=== PATIENT | male | born 1940 | race Caucasian/White ===

== ENCOUNTER 2016-07-24 15:45 | Inpatient (IN) | payer MEDICARE ==
[~2016-07-24] VITALS: Ht 170.2 cm; Wt 73.2 kg
[~2016-07-24 15:45] MED LIST: ALBU2.5V4 IH; ALBU5SOL10 IH; ASP81TEC PO; ATOR20TA49 PO; ATOR80TA PO; BUDE0.253 IH; CARV12.53 PO; CETI10TA17 PO; CETI10TA57 PO; CODE118S2 PO; DOCU-143 PO; DULO60CA58 PO; ENOX80DI12 SQ; ENXP80I.8 SC; FERR-57 PO; FRSM40T PO; FURO-124 PO; FURO20TA4 PO; FURO40TA4 PO; FURO80TA3 PO; HYDR-3812 PO; IPRA3AMP11 INH; LOSA100T7 PO; LOSA25TA5 PO; LOSA50TA6 PO; MAGN400T29 PO; METO25TA PO; MNTL10T PO; OMEP20CA12 PO; ONDA4TAB8 PO; OXYC-202 PO; PNT40TEC PO; POTA-51 PO; POTA10CA43 PO; POTA20TA8 PO; PROM5SYR PO; PROM6.25 PO; PYRI100T2 PO; RAMI1.25 PO; SOTA80TA PO; SPIR25TA3 PO; Sucralfate PO; WARF2TAB6 PO; WARF3TAB6 PO; WARF3TAB7 PO; WARF5TAB6 PO; WRF2.5T PO; WRF3T PO
[2016-07-24 20:00] VITALS: BP 110/68
--- OUTSIDE RECORDS SUMMARY | 2016-07-24 20:13 | XMS REPORT | Continuity of Care Document ---
Author Author [facility] Organization [facility] Address Unknown Phone Unavailable Care Team Providers Care Windows Architect Name Role Phone No Pcp, Na PCP Unavailable Source Comments Some departments are not documenting in the electronic medical record. If you do not see the information that you expected, contact Release of Information in the Health Information Management department at [phone] for further assistance in locating additional records.[facility] Active Allergies and Adverse Reactions No Known Allergies Current Medications Prescription Sig. Disp. Refills Start End Date Status Date warfarin (COUMADIN) 3 mg Take 3 mg by mouth daily. Active tablet atorvastatin (LIPITOR) 80 Take 80 mg by mouth Active mg tablet daily. aspirin 81 mg chewable Take 81 mg by mouth Active tablet daily. sotalol (BETAPACE) 80 mg Take 80 mg by mouth twice Active tablet daily. DULoxetine DR (CYMBALTA) Take 60 mg by mouth daily Active 60 mg capsule as needed. magnesium oxide (MAG-OX) Take 400 mg by mouth Active 400 mg tablet daily. potassium chloride SR Take 10 mEq by mouth Active (K-DUR) 10 mEq tablet daily. omeprazole DR(+) Take 20 mg by mouth Active (PRILOSEC) 20 mg capsule daily. pyridoxine (vitamin B6) Take 100 mg by mouth Active 100 mg tablet daily. furosemide (LASIX) 40 mg Take 40 mg by mouth Active tablet daily. Active Problems Problem Noted Date Aortic stenosis CAD (coronary artery disease) Social History Tobacco Use Types Packs/Day Years Used Date Former Smoker Cigarettes Alcohol Use Drinks/Week oz/Week Comments Yes Plan of Care Health Maintenance Due Date Last Done Comments Physical (Comprehensive) 1947 Exam Pertussis Vaccine 1951 Tetanus Vaccine 1957 Colorectal Cancer 1990 Screening Shingles Vaccine 2000 Prevnar/Pneumovax (#1) 2005 Influenza Vaccine 03/21/2016 Results from Last 3 Months Not on file
[2016-07-24] MEDS ORDERED: ATORVASTATIN 20 MG (LIPITOR) TABLET ONE (21:21)
[2016-07-24] MEDS ORDERED: SOTALOL 80 MG (BETAPACE) TAB ONE (21:21)
[2016-07-24] MEDS: SOTALOL 80 MG (BETAPACE) TAB PO SCH (21:34)
[2016-07-24] MEDS: CARVEDILOL 12.5 MG (COREG) TABLET PO SCH (21:35)
[2016-07-24] MEDS: ATORVASTATIN 40 MG (LIPITOR) TABLET PO SCH (21:39)
[2016-07-25 06:00] VITALS: BP 133/74
[2016-07-25 06:22] LABS: BASOPHILS % (AUTO) 1 % (0-10); EOSINOPHILS # (AUTO) 0.2 10^3/uL (0.0-0.3); EOSINOPHILS % (AUTO) 3 % (0-10); LYMPHOCYTES # (AUTO) 1.5 X 10^3 (1.0-4.0); LYMPHOCYTES % (AUTO) 27 % (12-44); MEAN CORPUSCULAR HEMOGLOBIN 27 PG (25-34); MEAN CORPUSCULAR HGB CONC 33 G/DL (32-36); MEAN CORPUSCULAR VOLUME 81 FL (80-99); MEAN PLATELET VOLUME 10.1 FL (7.4-10.4); MONOCYTES # (AUTO) 0.7 X 10^3 (0.0-1.0); MONOCYTES % (AUTO) 12 % (0-12); NEUTROPHILS # (AUTO) 3.2 X 10^3 (1.8-7.8); NEUTROPHILS % (AUTO) 57 % (42-75); PLATELET COUNT 320 10^3/uL (130-400); RED BLOOD COUNT 3.94 10^6/uL (4.35-5.85); RED CELL DISTRIBUTION WIDTH 15.2 % (10.0-14.5); WHITE BLOOD COUNT 5.5 10^3/uL (4.3-11.0)
[2016-07-25 06:36] LABS: INR 2.9 (0.8-1.4)
[2016-07-25 06:48] LABS: ALANINE AMINOTRANSFERASE 13 U/L (0-55); ALBUMIN 3.4 G/DL (3.2-4.5); ANION GAP 10 MMOL/L (5-14); ASPARTATE AMINO TRANSFERASE 13 U/L (5-34); BILIRUBIN,TOTAL 0.3 MG/DL (0.1-1.0); BLOOD UREA NITROGEN 4 MG/DL (7-18); BUN/CREATININE RATIO 6; CALCIUM 9.2 MG/DL (8.5-10.1); CARBON DIOXIDE 22 MMOL/L (21-32); CHLORIDE 96 MMOL/L (98-107); CREATININE SERUM 0.67 MG/DL (0.60-1.30); GFR ESTIMATED > 60; GLUCOSE 108 MG/DL (70-105); POTASSIUM 4.6 MMOL/L (3.6-5.0); SODIUM 128 MMOL/L (135-145); TOTAL PROTEIN 6.3 G/DL (6.4-8.2)
[2016-07-25] MEDS: FUROSEMIDE 40 MG (LASIX) TAB PO SCH ×2 (06:52→17:27)
[2016-07-25] MEDS: KCL 20 MEQ TAB (K-DUR) PO SCH (06:52)
[2016-07-25] MEDS: HYDROcodone/APAP 5 MG/325 MG (LORTAB) TAB PO PRN ×4 (06:55→22:01)
[2016-07-25] MEDS: CARVEDILOL 12.5 MG (COREG) TABLET PO SCH ×2 (08:11→20:41)
[2016-07-25] MEDS: SOTALOL 80 MG (BETAPACE) TAB PO SCH ×2 (08:11→20:41)
[2016-07-25] MEDS ORDERED: SODIUM CITRATE PO PRN (08:29)
--- NOTE | 2016-07-25 08:43 | Consultation ---
History of Present Illness History of Present Illness Patient Consulted On(rosanne/time) 07/25/16 08:39 Date of Admission History of Present Illness patient states she's feeling rough and sore all over. Patient fell backwards off the first step off his porch. Patient hit his head and received a subdural hematoma. Patient states he uses a walker to get around now. Surgery mitral valve and bypass Allergies and Home Medications Allergies Coded Allergies: No Known Drug Allergies (Unverified , 07/06/16) Home Medications Atorvastatin Calcium 20 Mg Tablet #30 20 MG PO HS Prescribed by: CHALO VALLEJO on 07/12/16 0837 Carvedilol 12.5 Mg Tablet 12.5 MG PO BID (Reported) LAST FILLED #60 04-10-16 Furosemide 80 Mg Tablet 40 MG PO BID (Reported) LAST FILLED #30 04-27-16 TAKES 1/2 (80MG) TABLET Hydrocodone/Acetaminophen 1 Each Tablet #30 1 TAB PO Q4H PRN PRN MODERATE PAIN Prescribed by: CHALO VALLEJO on 07/12/16 0823 Potassium Chloride 20 Meq Tab.er.prt 20 MEQ PO HS (Reported) LAST FILLED 04-27-16 #30 Promethazine HCl/Codeine 5 Ml Syrup 10 ML PO TID PRN PRN COUGH (Reported) Sotalol Hcl 80 Mg Tablet 80 MG PO BID (Reported) LAST FILLED #60 04-10-16 Warfarin Sodium 3 Mg Tablet 3 MG PO HS (Reported) LAST FILLED #30 04-27-16 Past Dfoxwjd-Qcbuni-Hpuski Hx Patient Social History Alcohol Use: Regular Use Recreational Drug Use: No Smoking Status: Former Smoker Type Used: Cigars Former Smoker/When Quit: Jul 21, 2005 Recent Foreign Travel: No Contact w/Someone Who Travel: No Recent Infectious Disease Expo: No Recent Hopitalizations: Yes (DC from [place] on 07/24/16) Physical Abuse Screen: No Sexual Abuse: No Immunizations Up To Date Tetanus Booster (TDap): Less than 5yrs PED Vaccines UTD: Yes Date of Pneumonia Vaccine: Mar 12, 2013 Date of Influenza Vaccine: May 06, 2016 Seasonal Allergies Seasonal Allergies: No Surgeries HX Surgeries: Yes (AAA REPAIR,MITRAL VALVE REPLACEMENT,CABG 2 VESSEL;PACER/ DEFIBRILLATOR) Surgeries: Abdominal, Cardiac, CABG, Defibrillator, Pacemaker, Vascular Surgery Respiratory Hx Respiratory Disorders: Yes Respiratory Disorders: Pneumonia, COPD, Emphysema Cardiovascular Hx Cardiac Disorders: Yes (CABG,PACER/DEFIB,AAA REPAIR, MITRAL VALVE REPLACEMENT,2 VESSEL CABG) Cardiac Disorders: Aneurysm, Cardiomyopathy, Coronary Artery Disease, Heart Attack, High Cholesterol, Hypertension, Hypotension, Syncope, Valvular Heart Disease Neurological Hx Neurological Disorders: Yes Reproductive System Hx Reproductive Disorders: No Sexually Transmitted Disease: No HIV/AIDS: No Genitourinary Hx Genitourinary Disorders: No (episode of dehydration that caused renal failure) Genitourinary Disorders: Renal Failure Gastrointestinal Hx Gastrointestinal Disorders: Yes Gastrointestinal Disorders: Gastroesophageal Reflux, Esophagitis, Ulcer Musculoskeletal Hx Musculoskeletal Disorders: Yes (HX. FALL BROKEN RIBS, L1 acute compression fx) Endocrine Hx Endocrine Disorders: No (DIET CONTROLLED ) Endocrine Disorders: Diabetes, Non-Insulin dep HEENT HX ENT Disorders: Yes HEENT Disorders: Cataract Hearing Impairment: Hard of Hearing, Bilateral Hearing Aide Cancer Hx Cancer: No Psychosocial Hx Psychiatric Problems: Yes Behavioral Health Disorders: Sleep Difficulties Integumentary HX Skin/Integumentary Disorder: No Blood Transfusions Hx Blood Disorders: No Adverse Reaction to a Blood Tr: No Family Medical History Family Medial History: Arthritis 19 FATHER 19 MOTHER Cataracts 19 FATHER 19 MOTHER Congenital heart disease 19 MOTHER Deafness or hearing loss 19 FATHER Dementia 19 FATHER Diabetes mellitus 19 FATHER Hypertension 19 MOTHER Osteoporosis 19 MOTHER Respiratory disorder 19 MOTHER Review of Systems-General Constitutional: weakness EENTM: no symptoms reported Respiratory: no symptoms reported Cardiovascular: vascular heart diseas Gastrointestinal: no symptoms reported Genitourinary: no symptoms reported Physical Exam-General Problems Physical Exam Vital Signs Vital Sign - Last 12Hours 07/24/16 20:00 Temp 97.8 Pulse 69 Resp 18 B/P 110/68 Pulse Ox 97 O2 Delivery Room Air Capillary Refill : General Appearance: WD/WN no apparent distress Eyes: Bilateral Eye Normal Inspection HEENT: normal ENT inspection Neck: full range of motion Respiratory: chest non-tender lungs clear normal breath sounds no respiratory distress no accessory muscle use Cardiovascular: regular rate, rhythm Gastrointestinal: soft Assessment/Plan Assessment/Plan Admission Diagnosis/Plan subdural hematoma. Hyponatremia. Mitral valve replacement. Coronary artery disease. Sore all over Clinical Quality Measures DVT/VTE Risk/Contraindication: Risk Factor Score Per Nursin RFS Level Per Nursing on Admit: 2=Moderate MARCELLA TAMEZ DO Jul 25, 2016 08:43
--- NOTE | 2016-07-25 09:50 | HISTORY AND PHYSICAL ---
DATE OF ADMISSION: 07/24/2016 CHIEF COMPLAINT: Difficulty with walking. HISTORY OF PRESENT ILLNESS: The patient is a 75-year-old male with a history ischemic cardiomyopathy with left ventricular ejection fraction of 25%. Myocardial perfusion imaging on 12/08/2012 and echo of February 2014 showed a left ventricular ejection fraction of approximately 45%, as well as pulmonary hypertension. He is followed by Dr. Yeung for chronic systolic congestive heart failure and chronic anticoagulated. Status post cardiac valve replacement. He has a history of falls with most recent admission to [facility]. The patient was seen by neurosurgery. His Coumadin was held. Imaging studies revealed bilateral frontal subdural ischemic illness. The patient required to be on Coumadin because of his mechanical valve which has been resumed. The patient is now referred to inpatient rehabilitation unit. He had been living alone in [place], [place]. His sister from [place] presents with him. PCP is Dr. Leonardo. The patient has a history of multiple falls and back pain due to a compression fracture. He had kyphoplasty this past May with DR GARC[facility] . He still has complaints of back pain and utilizes Lortab p.r.n. He currently requires assistance for his ADLs and mobility skills and was referred to Inpatient Rehabilitation Unit. PAST MEDICAL HISTORY: 1. Cardiac history as per above. 2. Tobacco use, ceased in January 2006. 3. Hyperlipidemia. 4. Chronic bronchitis. 5. AICD, due to ischemic cardiomyopathy, being managed by Dr. Zarate. 6. He had a device replacement, Dr. Zarate 08/1013. 7. GERD. 8. Chronic kidney disease. He has seen Dr. Luna during prior admission to [facility]. His L1 fracture had kyphoplasty of 06/04/2016 PAST SURGICAL HISTORY: Cardiac procedures as per above. ALLERGIES: No known medication allergies. FAMILY HISTORY: Arthritis, cataracts, congenital heart disease, hearing loss, dementia, diabetes mellitus, hypertension, osteoporosis. SOCIAL HISTORY: He has 2 children in [place], [place]. He is retired. He has a supportive sister that lives in [place]. PCP Dr. Leonardo. He is legally . REVIEW OF SYSTEMS: 10 point review of systems significant for gait imbalance, history of falls, back pain. MEDICATIONS: 1. Coumadin 3 mg p.o. daily. 2. K-Dur 20 mEq p.o. daily. 3. Furosemide 40 mg p.o. b.i.d. 4. Betapace 80 mg p.o. b.i.d. 5. Lipitor 20 mg p.o. at bedtime. 6. Coreg 12.5 mg p.o. b.i.d. 7. Lortab 5, 1 tablet p.o. q.4 hours p.r.n. moderate pain. PHYSICAL EXAMINATION: Significant for a pleasant male, appearing his stated age, alert and oriented no acute distress. He does not appear to know all of his history but it is fairly complex the last few months with multiple falls and stay at [facility]. Admissions to this facility and then admission to [facility] in [place], [place]. VITAL SIGNS: Within normal limits. He is afebrile. HEENT: Vision, speech, hearing, grossly intact. No oral lesion is noted. NECK: Supple without mass. HEART: Regular rhythm, click from valve is appreciated. CHEST: Clear. ABDOMEN: Soft, nontender. Bowel sounds present. EXTREMITIES: No lower edema. No calf tenderness. MUSCULOSKELETAL: He has a functional strength throughout. He has impaired standing balance. NEUROLOGIC: Sensation is grossly intact to touch. He has appeared standing balance. He had some mild difficulty with memory at least as far as his recent medical history. He has a functional strength throughout; this is unfortunately, impaired by his impaired balance. IMPRESSION: 1. Ambulatory dysfunction secondary to bilateral frontal subdural hematoma, status post repeated falls with Coumadin on board, has been held, now resumed. 2. Chronic anticoagulation due to valve replacement. His INR follow with PCP Dr. Leonardo. 3. Status post mitral valve replacement with number [address] prosthesis January 2006. 4. Chronic hyponatremia. 5. History of tobaccoism. 6. Hyperlipidemia, on statin. 7. AICD due to ischemic cardiomyopathy, being managed by Dr. Zarate. 8. GERD. 9. CKD. 10. Paroxysmal atrial fibrillation. 11. History of abdominal aortic aneurysm, status post stent grafting. Dr. Egan June 2011. 12. Chronic systolic congestive heart failure. 13. Chronic back pain, status post compression fracture. PLAN: The patient is admitted to Inpatient Rehabilitation Unit for comprehensive program of inpatient rehabilitation with goal of maximizing level of functional dependence prior to discharge home with home health care. The patient will have PT/OT 90 minutes per day, each discipline, 5 days week, when not being seen by speech therapy, for gait strengthening, conditioning, balance, ADLs, any patient/family/caregiver training necessary, any adaptive equipment and training necessary. Speech therapy to see the patient 3 to 5 days a week, 30 to 45 minutes per day for cognition and speech issues. Swallow screen is necessary, and I don't believe he has an issue with this. Rehabilitation nursing assist with bowel, bladder, skin care, medication administration, pain management. technical services specialist to assist with discharge planning, community reentry. Check INR and adjust Coumadin accordingly. Check admission labs in a.m. follow with Dr. Leonardo, PCP. The patient may benefit from an alternative to discharge home alone in [place], [place] considering his multiple comorbidities, his age and his history of recurrent falls and chronic anticoagulation. ESTIMATED LENGTH OF STAY: Two weeks. PROGNOSIS: Rehab prognosis appears good for goal of discharging home with home health and family, hopefully, modified independent to supervision for ADLs and mobility skills. DIET: Regular. CODE STATUS: Full code. POST ADMISSION PHYSICIAN ASSESSMENT: The preadmission screen agrees with the post admission assessment that the patient is a good candidate for inpatient rehabilitation. He appears to be well motivated to participate in 3 hours of therapy a day. He should be able tolerate 3 hours of therapy a day from a medical and neurosurgical standpoint. He should benefit from the 3 hours of therapy a day. He has a reasonable discharge plan, reasonable discharge rehabilitation goals and a supportive family. He has various comorbidities that need to be closely monitored with medications and treatments adjusted on daily basis. These include his cardiac condition as outlined above, his ischemic cardiomyopathy, his chronic anticoagulation. Barriers to discharge for this patient who had been until recently this past May independent at home, are for him to be modified independent to supervision for ADLs and mobility skills prior to discharge home with family and home health care . Risks for this patient include: 1. Recurrent fall. 2. Recurrent bleed. 3. Poorly controlled INR. 4. Recurrent congestive heart failure. 5. DVT. 6. Pulmonary embolism. 7. Falls. 8. Fracture. 9. Urinary retention. 10. UTI. 11. Respiratory infection. 12. Aspiration. The patient will have Coumadin for DVT prophylaxis as well. Job ID: [id number] Dictated Date: 07/24/2016 21:12:25 Keel Press Operator Date: 07/25/2016 09:24:03/luke COOK
--- NOTE | 2016-07-25 10:00 | Physical Therapy Evaluation ---
PT Evaluation-General Medical Diagnosis Admission Date Jul 24, 2016 at 20:09 Medical Diagnosis: subdural hematoma Onset Date: Jul 24, 2016 Therapy Diagnosis Therapy Diagnosis: impaired mobility, endurance, balance Height/Weight Height (Feet): 5 Height (Inches): 7.00 Weight (Pounds): 166 Weight (Ounces): 9.0 Precautions Precautions/Isolations: Fall Prevention, Standard Precautions Referral Physician: Julian Reason for Referral: Evaluation/Treatment Medical History Pertinent Medical History: CABG, CAD, COPD, DM, HTN, OR, Renal Insufficiency, Smoking Additional Medical History PAST MEDICAL HISTORY: 1. Cardiac history 2. Tobacco use, ceased in January 2006. 3. Hyperlipidemia. 4. Chronic bronchitis. 5. AICD, due to ischemic cardiomyopathy, being managed by Dr. Zarate. 6. He had a device replacement, Dr. Zarate 08/1013. 7. GERD. 8. Chronic kidney disease. He has seen Dr. Luna during prior admission to [facility]. His L1 fracture had kyphoplasty of 06/04/2016 Current History Patient fell backward going into his back door. Reviewed History: Yes Social History Home: Single Level Current Living Status: Alone Entry Into Home: Stairs With Railing PT Steps Into Home: 3 Prior/Core FIM Prior Level of Function Functional [place] Measure 0=Not Assessed/NA 4=Minimal Assistance 1=Total Assistance 5=Supervision or Setup 2=Maximal Assistance 6=Modified [place] 3=Moderate Assistance 7=Complete [place] Bed Mobility: 6 Transfers (B,C,W/C) (FIM): 6 Gait: 6 PT Daily Note-Current Subjective Patient in bed pre tx, agrees to therapy after some encouragement. Wanted to postpone therapy because he was drinking coffee, and that was it. Pain Numeric Pain Scale: 3 Location Body Site: Back Comment: ribs Appearance Patient in bed post tx with nurse call, phone, tray, all needs met. Mental Status Patient Orientation: Person, Place, Situation Transfers Functional [place] Measure 0=Not Assessed/NA 4=Minimal Assistance 1=Total Assistance 5=Supervision or Setup 2=Maximal Assistance 6=Modified [place] 3=Moderate Assistance 7=Complete IndependenceIRFPAI Quality Coding Scale 6 Independent with activity with or without an assistive device 5 Patient requires set up or clean up by helper. Patient completes activity by themselves 4 Supervision or touching assist (CGA). [place] provide cues , steadying assist 3 The helper provides less than half the effort to complete the activity 2 The helper provides more than half the effort to complete the activity 1 Dependent. The helper does all the effort to complete an activity 7 Patient refused to complete or attempt activity 9 The patient did not perform the activity before the current illness or injury 88 Not attempted due to Medical conditions or safety concerns Transfers (B, C, W/C) (FIM): 5 Scootin Rollin Roll Left to Right (QC): 4 Supine to/from Sit: 5 Sit to/from Stand: 5 Bed to/from Chair: 5 Sit to Lying (QC): 4 Lying-Sitting/Side of Bed(QC): 4 Sit to Stand (QC): 4 Chair/Cre-zk-Xbyrf Xfer(QC): 4 Car Transfer (QC): 88 Patient uses hand appropriately, however sometimes he needs cues for safety because he will leave walker to step to the bed or chair Gait Training Does the Patient Walk?: Yes Gait (FIM): 5 Distance: 250', 100' Walk 10 feet (QC): 4 Walk 50 ft with 2 Turns(QC): 4 Walk 150 ft (QC): 4 Walk 10ft-uneven surface(QC): 4 Gait Level of Assist: 5 Gait Persons Needed: 1 Gait Assistive Device: FWW Patient takes slow, small steps, but not a festinating gait. Patient is able to ambulate 10' without difficulty even on an uneven surface like carpet, he can ambulate 50' with at least 2 turns of 90 degrees and 150' with a rolling walker with SBA. Wheelchair Training Does the Pt Use a Wheelchair?: No Stair Training Stair Training: Handrails/: 2 handrails Stairs (FIM): 2 #of Steps: 4 1 Step (curb) (QC): 4 4 Steps (QC): 4 12 Steps (QC): 88 Stairs: Pattern: Step to Level of Assist: 4 (CGA) cues for step placement, patient tends to want to step reciprocally Balance Balance Sitting Static: Normal Balance Sitting Dynamic: Normal Balance-Standing Static: Good Balance Standing Dynamic: Good Picking up an Object (QC): 88 Neuromuscular Patient has intact light touch sensation in lower extremities bilaterally and has 4+/5 gross strength in LE bilaterally Treatments evaluation, stair training, gait training, bed mobility and transfer training Assessment Patient has impaired mobility, balance and endurance post subdural hematoma PT Short Term Goals Short Term Goals Time Frame: Aug 01, 2016 Transfers (B,C,W/C) (FIM): 6 Gait (FIM): 6 Gait Distance Comment: 600' Gait Assistive Device: FWW PT Fci Goals Commercial Loan Processor Goals PT Fci Goals Time Frame: Aug 15, 2016 Transfers (B,C,W/C) (FIM): 6 Sit to Lying (QC): 6 Lying-Sitting on Side/Bed(QC): 6 Sit to Stand (QC): 6 Rollin Roll Left to Right (QC): 6 Chair/Nrl-yt-Ichik Xfer(QC): 6 Car Transfer (QC): 4 Does the Patient Walk: Yes Gait (FIM): 6 Distance: 800' Walk 10 feet (QC): 6 Walk 10ft-Uneven Surface(QC): 6 Walk 50ft with 2 Turns (QC): 6 Walk 150 ft (QC): 6 Gait Assistive Device: Cane Single Point # of Steps: 5 1 Step (curb) (QC): 4 4 Steps (QC): 4 12 Steps (QC): 4 Stairs Level Of Assist: 5 PT Plan Problem List Problem List: Activity Tolerance, Functional Strength, Safety, Balance, Gait, Transfer, Bed Mobility Treatment/Plan Treatment Plan: Continue Plan of Care Treatment Plan: Bed Mobility, Education, Functional Activity Mckay, Functional Strength, Group Therapy, Gait, Safety, Therapeutic Exercise, Transfers Treatment Duration: Aug 15, 2016 # of days/week 5-6 Visits Per Week: 10-11 Minutes/Day (M-F): 60-90 Minutes/Day (Sat/Thakur): 15-30 Pt/Family Agrees w/Plan: Yes Safety Risks/Education Patient Education: Gait Training, Transfer Techniques, Steps, Safety Issues Teaching Recipient: Patient Teaching Methods: Demonstration, Discussion Response to Teaching: Reinforcement Needed Discharge Recommendations Plan Patient will perform bed mobility and transfer training, balance and endurance training, functional strengthening, stair training, gait training, education, to improve functional mobility and independence at home. Therapy D/C Recommendations: Home w/ Family Support Time/GCodes Time In: 900 Time Out: 1000 Total Billed Treatment Time: 60 Total Billed Treatment 1 visit EVL 15 min GT 30 min FA 15 min DAVE VAUGHN PT Jul 25, 2016 10:00
--- NOTE | 2016-07-25 10:17 | ST Cognitive Linguistic Eval ---
Speech Evaluation-General Medical Diagnosis subdural hematoma Onset Date: Jul 24, 2016 Therapy Diagnosis Therapy Diagnosis: Questionable Cognitive Impairment Precautions Precautions/Isolations: Fall Prevention, Standard Precautions Referral Referring Physician: Dr. Baldev Jordan Reason for Referral: Evaluation/Treatment Cognitive Screen Medical History Pertinent Medical History: CABG, CAD, COPD, DM, HTN, [place], Renal Insufficiency, Smoking Reviewed History: Yes Social History Current Living Status: Alone Speech PLF-Current Status Prior Level of Function The patient denied cognitive, speech, or language deficits prior to admission. Subjective The patient was recently admitted to [facility]. The patient greeted the clinician appropriately and agreed to participate in the cognitive screen on this date. Language Eval: Auditory Comprehends Simple Yes/No Ques: Functional Indent/Objects Multiple [place]: Functional Ident/Pics in Multiple [place]: Functional Follows 1-Step Commands: Functional Follows General Conversations: Functional Language Eval: Verbal Language Completes Spontaneous Greeting: Functional Produces Auto, Serial Info: Functional Imitates Simple Words/Phrases: Functional Word Finding: Functional Requests Basic Needs: Functional States Basic Personal Info: Functional Expresses Complex Ideas: Functional Cognitive Patient Orientation The patient was oriented to month, date, year, and location. Objective Cognitive Domain Attention: WNL Memory: Mild (The patient recalled two of three single words, independently.) Problem Solving: Functional Objective Impression The patient demonstrated cognitive linguistic skills grossly within normal limits for completion of ADL's. Communication/Social Cognition Comprehension: 5 Expression: 5 Social Interaction: 5 Problem Solvin Memory: 5 Speech Patient Assess Expression of Ideas/Wants: Expression (4) Understanding [place] Content: Sometimes Understands(2) Brief Interview-Mental Status: Yes Temporal Orientation: Year: Correct (3) Temporal Orientation: Month: Accurate within 5 days(2) Temporal Orientation: Day: Incorrect or No Answer(0) Recall : Wear: No, could not recall (0) Recall : Color: Yes, no cue required (2) Recall : Bed: Yes, no cue required (2) Speech-Plan Treatment Plan Speech Therapy Treatment Plan: Discontinue ST (Eval, only.) Rehab Potential: Fair Safety Risks/Education Teaching Recipient: Patient Teaching Methods: Discussion Response to Teaching: Verbalize Understanding Education Topics Provided: Plan of Care Time Speech Therapy Time In: 08:15 Speech Therapy Time Out: 08:30 Total Billed Time: 15 Billed Treatment Time DONNELL Rose [facility] ST Jul 25, 2016 10:17
--- NOTE | 2016-07-25 14:09 | PM & R (SOAP) Progress Note ---
Subjective Subjective/Events-last exam Patient was seen in his room this AM Patient min assist for transfers and ambulation.Appreciate therapy and Dr rose notes Appreciate current labs. Review of Systems General: Fatigue (memory loss) Neurological: : Other (impaired balance): Weakness Objective Exam Last Set of Vital Signs Vital Signs Date Time Temp Pulse Resp B/P Pulse Ox O2 Delivery O2 Flow Rate FiO2 07/25/16 09:00 Room Air 07/25/16 06:00 98.1 70 18 133/74 98 Capillary Refill : I&O Bad tableGeneral: Alert, Cooperative, No Acute Distress HEENT: Atraumatic, PERRLA, EOMI, Mucous Memb Moist/[place] Neck: Supple, No JVD Lungs: Clear to Auscultation Heart: Regular Rate Abdomen: Normal Bowel Sounds, Soft, No Tenderness Extremities: No Edema Neuro: Other (impaired balance and some memory impairment) Results Lab Laboratory Tests 07/25/16 06:09: Alanine Aminotransferase (ALT/SGPT) 13, Albumin 3.4, Alkaline Phosphatase 95, Anion Gap 10, Aspartate Amino Transf (AST/SGOT) 13, BUN/Creatinine Ratio 6, Basophils # (Auto) 0.0, Basophils (%) (Auto) 1, Blood Urea Nitrogen 4L, Calcium Level 9.2, Carbon Dioxide Level 22, Chloride Level 96L, Creatinine 0.67, Eosinophils # (Auto) 0.2, Eosinophils (%) (Auto) 3, Estimat Glomerular Filtration Rate > 60, Glucose Level 108H, Hematocrit 32L, Hemoglobin 10.5L, INR Comment 2.9H, Lymphocytes # (Auto) 1.5, Lymphocytes (%) (Auto) 27, Mean Corpuscular Hemoglobin 27, Mean Corpuscular Hemoglobin Concent 33, Mean Corpuscular Volume 81, Mean Platelet Volume 10.1, Monocytes # (Auto) 0.7, Monocytes (%) (Auto) 12, Neutrophils # (Auto) 3.2, Neutrophils (%) (Auto) 57, Platelet Count 320, Potassium Level 4.6, Prothrombin Time 30.0H, Red Blood Count 3.94L, Red Cell Distribution Width 15.2H, Sodium Level 128L, Total Bilirubin 0.3, Total Protein 6.3L, White Blood Count 5.5 Assessment/Plan Assessment Fall with SDH treted medically Chronic hyponatremia Anemia Cardiomyopathy s/p ICD Hx of rercurrent falls Plan Continue PT/OT/ST Team Conference next week Follow INR for chronic anticoagulation F/U with KEVEN Esposito MD Jul 25, 2016 14:09
--- NOTE | 2016-07-25 15:02 | Occupational Therapy Eval ---
OT Evaluation-General/PLF Medical Diagnosis Admission Date Jul 24, 2016 at 20:09 Medical Diagnosis: subdural hematoma Onset Date: Jul 24, 2016 Therapy Diagnosis Therapy Diagnosis: Weakness, Decreased ADL skills Height/Weight Height (Feet): 5 Height (Inches): 7.00 Weight (Pounds): 166 Weight (Ounces): 9.0 Precautions Precautions/Isolations: Fall Prevention, Standard Precautions Safety Interventions: Bed Exit Alarm, Reorient-PRN Weight Bear Status Weight Bearing Restriction: Weight Bearing/Tolerated Referral Physician: Julian Referral Reason: Activity Tolerance, Evaluation/Treatment, Strengthening/ROM Medical History Pertinent Medical History: CABG, CAD, COPD, DM, HTN, NC, Renal Insufficiency, Smoking Additional Medical History Mechanical heart valve, 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 was in hospital for intractable back pain. Discharged and while trying to walk into home, fell backward hitting head. Reviewed History: Yes Social History Home: Single Level Current Living Status: Alone Entry Into Home: Stairs With Railing Steps Into Home: 3 ADL-Prior Level of Function ADL PLOF Comments Pt. states prior to his last hospitalization, he was independent with daily tasks. States that he drives, and is able to shop for himself, bathe, and dress. Pt. states that he had back injection approximately 2 months ago for pain. However, he states, "it didn't help." DME/Equipment: Bath Chair, Tub/Shower DME/Equipment Comments Pt. has walker and wheelchair. Does not have a BSC. Drive Self: Yes OT Current Status Subjective Pt. does not report a pain level. States, that he is "sore all over," but does not state a pain level. Appearance Pt. is in bed. Agrees to treatment. Declines showering but agrees to spongebathe. Pt. requires increased time and cues to participate. Mental Status/Objective Patient Orientation: Person Memory: 4 (Pt. requires cues to remember tasks at times and constant verbal cues.) Current Glasses/Contacts: Yes Hearing Aids: Yes Dentures/Partials: Yes Hand Dominance: Right Upper Extremity ROM WFL Upper Extremity Coordination intact Upper Extremity Strength 3/5 bilateral UE. ADL-Treatment Functional [place] Measure 0=Not Assessed/NA 4=Minimal Assistance 1=Total Assistance 5=Supervision or Setup 2=Maximal Assistance 6=Modified [place] 3=Moderate Assistance 7=Complete IndependenceIRFPAI Quality Coding Scale 6 Independent with activity with or without an assistive device 5 Patient requires set up or clean up by helper. Patient completes activity by themselves 4 Supervision or touching assist (CGA). [place] provide cues , steadying assist 3 The helper provides less than half the effort to complete the activity 2 The helper provides more than half the effort to complete the activity 1 Dependent. The helper does all the effort to complete an activity 7 Patient refused to complete or attempt activity 9 The patient did not perform the activity before the current illness or injury 88 Not attempted due to Medical conditions or safety concerns Eating (FIM): 6 (Pt. eating parfait with no difficulty. Had no difficulty getting lid off.) Eating (QC): 6 Bathing (FIM): 5 (Pt. requires supervision and set up. Also requires increased time to complete tasks. Pt. will become distracted and requires cues to continue with what he is working on.) Shower/Bathe Self (QC): 4 Upper Body Dressing (FIM): 5 (Set up and increased time.) Upper Body Dressing (QC): 5 Lower Body Dressing (FIM): 5 (supervision and increased time needed.) Lower Body Dressing (QC): 4 On/Off Footwear (QC): 4 Transfers (B, C, W/C) (FIM): 5 (supervision) Other Treatments Pt. agrees to spongebathe. Requires frequent cues to continue with tasks. Pt. also requires increased time, as he will begin talking about something, and then requires re-direction. After ADLS on side of bed, pt. is able to transfer back to supine. All needs met. Education OT Patient Education: Modified ADL techniques, Progress toward Goal/Update tx plan, Purpose of tx/functional activities, Reviewed precautions, Rehab process, Transfer techniques Teaching Recipient: Patient Teaching Methods: Demonstration, Discussion Response to Teaching: Verbalize Understanding, Return Demonstration OT Short Term Goals Short Term Goals Time Frame: Aug 01, 2016 Eating(FIM): 5 Grooming(FIM): 5 Bathing(FIM): 5 Upper Body Dressing(FIM): 5 Lower Body Dressing(FIM): 5 Toileting(FIM): 5 Transfers (B,C,W/C) (FIM): 6 Toilet/Commode Transfer(FIM): 5 Additional Short Term Goals: 1-Demonstrate ADL Tasks, 2-Verbalize Understanding , 3-ImproveStrength/Mckay 1=Demonstrate adherence to instructed precautions during ADL tasks. 2=Patient will verbalize/demonstrate understanding of assistive devices/ modifications for ADL. 3=Patient will improve strength/tolerance for activity to enable patient to perform ADL's. OT Canopy Inspector Goals Canopy Inspector Goals Time Frame: Aug 08, 2016 Eating (FIM): 6 Eating (QC): 6 Oral Hygiene (QC): 5 Grooming(FIM): 6 Bathing(FIM): 5 Shower/Bathe Self (QC): 5 Upper Body Dressing(FIM): 6 Upper Body Dressing (QC): 6 Lower Body Dressing(FIM): 6 Lower Body Dressing (QC): 5 On/Off Footwear (QC): 5 Toileting(FIM): 6 Toileting Hygiene (QC): 6 Transfers (B,C,W/C) (FIM): 6 Toilet/Commode Transfer(FIM): 6 Toilet/Commode Transfer (QC): 6 Shower Transfer(FIM): 5 Additional Goals: 1-Demonstrate ADL Tasks, 2-Verbalize Understanding, 3- ImproveStrength/Mckay 1=Demonstrate adherence to instructed precautions during ADL tasks. 2=Patient will verbalize/demonstrate understanding of assistive devices/ modifications for ADL. 3=Patient will improve strength/tolerance for activity to enable patient to perform ADL's. OT Education/Plan Problem List/Assessment Assessment: Decreased Activ Tolerance, Decreased UE Strength, Dependent Transfers, Impaired Bed Mobility, Impaired Cognition, Impaired Funct Balance, Impaired I ADL's, Impaired Self-Care Skills Discharge Recommendations Plan/Recommendations: Continue POC Therapy D/C Recommendations: Assisted Living Barriers to Progress Motivation, pain Target Placement Pt. would benefit from being in an assisted living facility for socialization and supervision when needed. Treatment Plan/Plan of Care Treatment,Training & Education: Yes Patient would benefit from OT for education, treatment and training to promote independence in ADL's, mobility, safety and/or upper extremity function for ADL' s. Plan of Care: ADL Retraining, Cognitive Retraining, Functional Mobility, UE Funct Exercise/Act Treatment Duration: Aug 08, 2016 # of days/week 5-6 Visits Per Week: 10-12 Agreement: Yes Rehab Potential: Fair Time/GCodes Start Time: 11:00 Stop Time: 12:00 Total Time Billed (hr/min): 60 Billed Treatment Time 1, EVLow x 15minutes, ADL x 45minutes ALISIA AVILA OT Jul 25, 2016 15:02
--- NOTE | 2016-07-25 15:06 | Individualized Plan of Care ---
Individualized Plan of Care Rehab Nursing IPOC Order Admission Date Jul 24, 2016 at 20:09 Current Orders Orders-KEVEN MIRELES MD Admission-Acute Rehab Unit (07/24/16 20:37) Vital Signs: Routine 08,16,00 (07/24/16 20:37) Social Service (07/24/16 20:37) Rehab Nursing Orders-Ipoc (07/24/16 20:37) Physical Therapy Rehab Orders (07/24/16 20:37) Occupational Therapy Rehab Ord (07/24/16 20:37) Speech Therapy Rehab Orders (07/24/16 20:37) General/Regular (07/25/16 Breakfast) Precautions (Aru) (07/24/16 20:37) Weekly Weight (Lbs) WEEK (07/24/16 20:37) Cbc With Automated Diff (07/25/16 06:00) Comprehensive Metabolic Panel (07/25/16 06:00) Protime With Inr (07/25/16 06:00) Consult Physician (07/24/16 20:44) Sotalol Tablet (Betapace Tablet) (07/24/16 21:00) Warfarin Tablet (Coumadin Tablet) (07/25/16 18:00) Atorvastatin Tablet (Lipitor) (07/24/16 21:00) Potassium Chloride (Tablet) (K Dur Table (07/25/16 07:00) Furosemide Tablet (Lasix Tablet) (07/25/16 07:00) Carvedilol Tablet (Coreg Tablet) (07/24/16 21:00) Hydrocodone/Apap 5/325 Tablet (Lortab 5 (07/24/16 20:45) Pharmacy Communication (Pharmacy Communi (07/24/16 21:00) Atorvastatin Tablet (Lipitor Tablet) (07/24/16 21:21) Sotalol Tablet (Betapace Tablet) (07/24/16 21:21) Patient's Own Med(Rx Use Only) (Patient' (07/25/16 08:29) Patient Visit (07/25/16 ) Speech Sound Lang Comp (07/25/16 ) PT IPOC Problem List: Activity Tolerance, Functional Strength, Safety, Balance, Gait, Transfer, Bed Mobility Treatment Plan: Continue Plan of Care Bed Mobility, Education, Functional Activity Mckay, Functional Strength, Group Therapy, Gait, Safety, Therapeutic Exercise, Transfers Treatment Duration: Aug 15, 2016 Visits Per Week: 10-11 Minutes/Day (M-F): 60-90 Minutes/Day (Sat/Thakur): 15-30 OT IPOC Problems: Decreased Activ Tolerance, Decreased Safety Aware, Decreased UE Strength, Impaired Bed Mobility, Impaired Cognition, Impaired Coordination, Impaired Funct Balance, Impaired I ADL's, Impaired Self-Care Skills Plan of Care: ADL Retraining, Caregiver Training, Cognitive Retraining, Functional Mobility, Group Exercise/Act as Ind, UE Funct Exercise/Act Treatment Duration: Aug 15, 2016 Visits Per Week: 10-11 Minutes/Day (M-F): 60-90 Minutes/Day (Sat/Thakur): 15-30 ST IPOC Speech Therapy Treatment Plan: Discontinue ST (Eval, only.) Physician IPOC Medical Issues being managed closely and that require the 24 hour availability of a physician:Chronic anticoagulation,due to mitral valve replacement 2005.Chronic hyponatremia,ischemic cardiomyopathy and PAF with hx of chronic systolic CHF Chronic back pain s/p Kyphoplasty last year Dr Strickland Interventional Radiology Medical Issues: DVT Prophylaxis, Falls Precautions, Fluid/Electrolyte/ Nutrition Balance, Infection Protection, Pain Management, Other (List) (as per above) Brief Synthesis of Preadmission Screen, Post-Admission Evaluation, and Therapy Evaluations: 75 yo male who lives alone who has had chronic falls and now with blateral Frontal SDHS treated medically by Neurosurgery at OSH Coumadin held and now resumed.On Coumadin Chronically due to MVR 2005 also has cardiomyopathy with low EF s/p ICD DR Rachel OS,Has a supportive sister who lives in [place].PCP DR Leonardo Patient has chronic problems with gait instability.SW to look into alternatives to discharge home alone. Medical Prognosis: good Anticipated Length of Stay: 3 weeks Rehab Goals Modified Independent for adls and mobility skills with improved Balance with decresed risk for falls and therapeutic INR Anticipated discharge destinat: Home with [facility] vs KEVEN MARTE MD Jul 25, 2016 15:05
--- NOTE | 2016-07-25 15:28 | Physical Therapy Daily Note ---
PT Daily Note-Current Subjective Agreeable to PT Mental Status Patient Orientation: Person, Place, Time, Situation Transfers Functional [place] Measure 0=Not Assessed/NA 4=Minimal Assistance 1=Total Assistance 5=Supervision or Setup 2=Maximal Assistance 6=Modified [place] 3=Moderate Assistance 7=Complete IndependenceIRFPAI Quality Coding Scale 6 Independent with activity with or without an assistive device 5 Patient requires set up or clean up by helper. Patient completes activity by themselves 4 Supervision or touching assist (CGA). [place] provide cues , steadying assist 3 The helper provides less than half the effort to complete the activity 2 The helper provides more than half the effort to complete the activity 1 Dependent. The helper does all the effort to complete an activity 7 Patient refused to complete or attempt activity 9 The patient did not perform the activity before the current illness or injury 88 Not attempted due to Medical conditions or safety concerns Transfers (B, C, W/C) (FIM): 5 Supine to/from Sit: 5 Sit to/from Stand: 5 (skilled cues for hand placement and sequencing. ) Gait Training Does the Patient Walk?: Yes Gait (FIM): 5 Distance (FIM): 3=150 ft Distance: 150 ft x 3 Gait Assistive Device: FWW Steady gait, slow susan. No LOB Wheelchair Training Does the Pt Use a Wheelchair?: No Exercises Seated Therapy Exercises: Ankle pumps, Sit to stand, Long arc quads, Hip flexion, Hip abd/add Seated Reps: 15 Treatments Toileted and stood at sink to wash hands all with SBA. Assessment Current Status: Good Progress Safe gait this visit. PT Short Term Goals Short Term Goals Time Frame: Aug 01, 2016 Transfers (B,C,W/C) (FIM): 6 Gait (FIM): 6 Gait Distance Comment: 600' Gait Assistive Device: FWW PT Group Home Goals Controls Operator Molded Goods Goals PT Controls Operator Molded Goods Goals Time Frame: Aug 15, 2016 Transfers (B,C,W/C) (FIM): 6 Sit to Lying (QC): 6 Lying-Sitting on Side/Bed(QC): 6 Sit to Stand (QC): 6 Rollin Roll Left to Right (QC): 6 Chair/Nbe-dc-Uvquu Xfer(QC): 6 Car Transfer (QC): 4 Does the Patient Walk: Yes Gait (FIM): 6 Distance: 800' Walk 10 feet (QC): 6 Walk 10ft-Uneven Surface(QC): 6 Walk 50ft with 2 Turns (QC): 6 Walk 150 ft (QC): 6 Gait Assistive Device: Cane Single Point # of Steps: 5 1 Step (curb) (QC): 4 4 Steps (QC): 4 12 Steps (QC): 4 Stairs Level Of Assist: 5 PT Plan Problem List Problem List: Activity Tolerance, Functional Strength, Safety, Gait, Transfer Treatment/Plan Treatment Plan: Continue Plan of Care Treatment Plan: Bed Mobility, Education, Functional Activity Mckay, Functional Strength, Group Therapy, Gait, Safety, Therapeutic Exercise, Transfers Treatment Duration: Aug 15, 2016 Visits Per Week: 10-11 Minutes/Day (M-F): 60-90 Minutes/Day (Sat/Thakur): 15-30 Safety Risks/Education Patient Education: Safety Issues Teaching Recipient: Patient Teaching Methods: Discussion Response to Teaching: Reinforcement Needed Time/GCodes Time In: 1300 Time Out: 1333 Total Billed Treatment Time: 33 Total Billed Treatment visit EX 19 GT 14 YUNIOR SETH PT Jul 25, 2016 15:28
--- NOTE | 2016-07-25 15:49 | Occupational Ther Daily Note ---
OT Current Status-Daily Note Subjective Pt. reports no pain. Agrees to treatment. Appearance Pt. is in bed finishing parfait. Requires increased time to prepare for therapy. Mental Status/Objective Patient Orientation: Person Functional [place] Measure 0=Not Assessed/NA 4=Minimal Assistance 1=Total Assistance 5=Supervision or Setup 2=Maximal Assistance 6=Modified [place] 3=Moderate Assistance 7=Complete [place] ADL-Treatment Functional [place] Measure 0=Not Assessed/NA 4=Minimal Assistance 1=Total Assistance 5=Supervision or Setup 2=Maximal Assistance 6=Modified [place] 3=Moderate Assistance 7=Complete IndependenceIRFPAI Quality Coding Scale 6 Independent with activity with or without an assistive device 5 Patient requires set up or clean up by helper. Patient completes activity by themselves 4 Supervision or touching assist (CGA). [place] provide cues , steadying assist 3 The helper provides less than half the effort to complete the activity 2 The helper provides more than half the effort to complete the activity 1 Dependent. The helper does all the effort to complete an activity 7 Patient refused to complete or attempt activity 9 The patient did not perform the activity before the current illness or injury 88 Not attempted due to Medical conditions or safety concerns Other Treatment Pt. agrees to treatment. Ambulated to therapy gym and completed series of fine motor exercises to increase overall UE strength. Tolerated nut/bolt activity as well as therapy clothespin activity to increase overall strength. Pt. then ambulated back to room. All needs met in room. Education OT Patient Education: Modified ADL techniques, Progress toward Goal/Update tx plan, Purpose of tx/functional activities, Reviewed precautions, Rehab process, Transfer techniques Teaching Recipient: Patient Teaching Methods: Demonstration, Discussion Response to Teaching: Verbalize Understanding, Return Demonstration OT Short Term Goals Short Term Goals Time Frame: Aug 01, 2016 Eating(FIM): 5 Grooming(FIM): 5 Bathing(FIM): 5 Upper Body Dressing(FIM): 5 Lower Body Dressing(FIM): 5 Toileting(FIM): 5 Transfers (B,C,W/C) (FIM): 6 Toilet/Commode Transfer(FIM): 5 Additional Short Term Goals: 1-Demonstrate ADL Tasks, 2-Verbalize Understanding , 3-ImproveStrength/Mckay 1=Demonstrate adherence to instructed precautions during ADL tasks. 2=Patient will verbalize/demonstrate understanding of assistive devices/ modifications for ADL. 3=Patient will improve strength/tolerance for activity to enable patient to perform ADL's. OT Art Coordinator Goals Art Coordinator Goals Time Frame: Aug 08, 2016 Eating (FIM): 6 Eating (QC): 6 Oral Hygiene (QC): 5 Grooming(FIM): 6 Bathing(FIM): 5 Shower/Bathe Self (QC): 5 Upper Body Dressing(FIM): 6 Upper Body Dressing (QC): 6 Lower Body Dressing(FIM): 6 Lower Body Dressing (QC): 5 On/Off Footwear (QC): 5 Toileting(FIM): 6 Toileting Hygiene (QC): 6 Transfers (B,C,W/C) (FIM): 6 Toilet/Commode Transfer(FIM): 6 Toilet/Commode Transfer (QC): 6 Shower Transfer(FIM): 5 Additional Goals: 1-Demonstrate ADL Tasks, 2-Verbalize Understanding, 3- ImproveStrength/Mckay 1=Demonstrate adherence to instructed precautions during ADL tasks. 2=Patient will verbalize/demonstrate understanding of assistive devices/ modifications for ADL. 3=Patient will improve strength/tolerance for activity to enable patient to perform ADL's. OT Education/Plan Problem List/Assessment Assessment: Decreased Activ Tolerance, Decreased UE Strength, Impaired I ADL's , Impaired Self-Care Skills Discharge Recommendations Plan/Recommendations: Continue POC Therapy D/C Recommendations: Assisted Living Treatment Plan/Plan of Care Treatment,Training & Education: Yes Patient would benefit from OT for education, treatment and training to promote independence in ADL's, mobility, safety and/or upper extremity function for ADL' s. Plan of Care: ADL Retraining, Cognitive Retraining, Functional Mobility, UE Funct Exercise/Act Treatment Duration: Aug 08, 2016 Visits Per Week: 10-12 Agreement: Yes Rehab Potential: Fair Time/GCodes Start Time: 14:00 Stop Time: 14:30 Total Time Billed (hr/min): 30 Billed Treatment Time 1, FA x 2 ALISIA AVILA OT Jul 25, 2016 15:49
[2016-07-25] MEDS: warFARin 3 MG (COUMADIN) TAB PO SCH (17:27)
[2016-07-25 18:28] VITALS: BP 124/78
[2016-07-25] MEDS: ATORVASTATIN 40 MG (LIPITOR) TABLET PO SCH (20:41)
[2016-07-26] MEDS: HYDROcodone/APAP 5 MG/325 MG (LORTAB) TAB PO PRN ×5 (02:21→22:55)
[2016-07-26 05:21] LABS: INR 3.2 (0.8-1.4); PROTHROMBIN TIME PATIENT 32.9 SEC (12.2-14.7)
[2016-07-26 05:26] LABS: ANION GAP 13 MMOL/L (5-14); BLOOD UREA NITROGEN 7 MG/DL (7-18); BUN/CREATININE RATIO 9; CALCIUM 9.3 MG/DL (8.5-10.1); CARBON DIOXIDE 22 MMOL/L (21-32); CHLORIDE 92 MMOL/L (98-107); CREATININE SERUM 0.79 MG/DL (0.60-1.30); GFR ESTIMATED > 60; GLUCOSE 98 MG/DL (70-105); POTASSIUM 4.4 MMOL/L (3.6-5.0); SODIUM 127 MMOL/L (135-145)
[2016-07-26 05:50] VITALS: BP 119/81
[2016-07-26] MEDS: KCL 20 MEQ TAB (K-DUR) PO SCH (06:27)
[2016-07-26] MEDS: FUROSEMIDE 40 MG (LASIX) TAB PO SCH ×2 (06:27→17:33)
--- NOTE | 2016-07-26 08:17 | Progress Note (SOAP) ---
Subjective Subjective/Events-last exam hyponatremia is sodium 127 today. Subdural hematoma. INR 3.2. Patient feeling a little better today. Patient getting around with walker. Started restriction of fluid yesterday Objective Exam Vital Signs Date Time Temp Pulse Resp B/P Pulse Ox O2 Delivery O2 Flow Rate FiO2 07/26/16 05:50 96.5 70 20 119/81 97 Room Air 07/25/16 18:28 97.1 69 16 124/78 98 07/25/16 09:00 Room Air I & O 07/26/16 07:00 Intake Total 1280 ml Output Total 400 ml Balance 880 ml Capillary Refill : General Appearance: No Apparent Distress WD/WN HEENT: Normal ENT Inspection Neck: Normal Inspection Non Tender Respiratory: Lungs Clear Normal Breath Sounds No Accessory Muscle Use No Respiratory Distress Cardiovascular: Regular Rate, Rhythm Gastrointestinal: soft Results Lab Laboratory Tests 07/26/16 04:48 Laboratory Tests 07/26/16 04:48: Anion Gap 13, BUN/Creatinine Ratio 9, Blood Urea Nitrogen 7, Calcium Level 9.3, Carbon Dioxide Level 22, Chloride Level 92L, Creatinine 0.79, Estimat Glomerular Filtration Rate > 60, Glucose Level 98, INR Comment 3.2H, Potassium Level 4.4, Prothrombin Time 32.9H, Sodium Level 127L Assessment/Plan Assessment/Plan Assess & Plan/Chief Complaint subdural hematoma. Hyponatremia. Mitral valve replacement. Coronary artery disease. Sore all over. . 07/26/16. Subdural hematoma. Hyponatremia sodium 127 today. To start fluid restriction yesterday. Patient feeling okay. Patient getting around with walker Diagnosis/Problems: Clinical Quality Measures DVT/VTE Risk/Contraindication: Risk Factor Score Per Nursin RFS Level Per Nursing on Admit: 2=Moderate MARCELLA TAMEZ DO Jul 26, 2016 08:17
--- NOTE | 2016-07-26 09:43 | PM & R (SOAP) Progress Note ---
Subjective Subjective/Events-last exam Patient was seen in his room this AM Appreciate DR rose note and orders Apopreciate todays labs.Patient SBA for mobility Objective Exam Last Set of Vital Signs Vital Signs Date Time Temp Pulse Resp B/P Pulse Ox O2 Delivery O2 Flow Rate FiO2 07/26/16 09:29 Room Air 07/26/16 05:50 96.5 70 20 119/81 97 Capillary Refill : I&O Bad tableGeneral: Alert, Cooperative, No Acute Distress HEENT: Atraumatic, PERRLA, EOMI, Mucous Memb Moist/[place] Neck: Supple, No JVD Lungs: Clear to Auscultation Heart: Regular Rate Abdomen: Normal Bowel Sounds, Soft, No Tenderness Extremities: No Edema Neuro: Other (impaired balance and some memory impairment) Results Lab Laboratory Tests 07/25/16 06:09: Alanine Aminotransferase (ALT/SGPT) 13, Albumin 3.4, Alkaline Phosphatase 95, Anion Gap 10, Aspartate Amino Transf (AST/SGOT) 13, BUN/Creatinine Ratio 6, Basophils # (Auto) 0.0, Basophils (%) (Auto) 1, Blood Urea Nitrogen 4L, Calcium Level 9.2, Carbon Dioxide Level 22, Chloride Level 96L, Creatinine 0.67, Eosinophils # (Auto) 0.2, Eosinophils (%) (Auto) 3, Estimat Glomerular Filtration Rate > 60, Glucose Level 108H, Hematocrit 32L, Hemoglobin 10.5L, INR Comment 2.9H, Lymphocytes # (Auto) 1.5, Lymphocytes (%) (Auto) 27, Mean Corpuscular Hemoglobin 27, Mean Corpuscular Hemoglobin Concent 33, Mean Corpuscular Volume 81, Mean Platelet Volume 10.1, Monocytes # (Auto) 0.7, Monocytes (%) (Auto) 12, Neutrophils # (Auto) 3.2, Neutrophils (%) (Auto) 57, Platelet Count 320, Potassium Level 4.6, Prothrombin Time 30.0H, Red Blood Count 3.94L, Red Cell Distribution Width 15.2H, Sodium Level 128L, Total Bilirubin 0.3, Total Protein 6.3L, White Blood Count 5.5 07/26/16 04:48: Anion Gap 13, BUN/Creatinine Ratio 9, Blood Urea Nitrogen 7, Calcium Level 9.3, Carbon Dioxide Level 22, Chloride Level 92L, Creatinine 0.79, Estimat Glomerular Filtration Rate > 60, Glucose Level 98, INR Comment 3.2H, Potassium Level 4.4, Prothrombin Time 32.9H, Sodium Level 127L Assessment/Plan Assessment Fall with SDH treted medically Chronic hyponatremia Anemia Cardiomyopathy s/p ICD Hx of rercurrent falls Chronic anticoagulation Plan Continue PT/OT/ST Team Conference next week Follow INR for chronic anticoagulation F/U with Dr neal PRN Trend Hyponatremia-chronic KEVEN MIRELES MD Jul 26, 2016 09:43
[2016-07-26] MEDS: CARVEDILOL 12.5 MG (COREG) TABLET PO SCH ×2 (09:49→20:14)
[2016-07-26] MEDS: SOTALOL 80 MG (BETAPACE) TAB PO SCH ×2 (09:49→20:14)
--- NOTE | 2016-07-26 09:57 | Physical Therapy Daily Note ---
PT Daily Note-Current Subjective Patient in bed finishing up his breakfast pre tx. Reluctantly agrees to PT. Patient needs dressed and groomed. Pain Comment: low back, nurse notified Appearance Patient in bed post tx, has nurse call, phone, tray, all needs met. Patient scored a 20/28 on the Tinetti, will try allowing patient to go to the bathroom by himself but he was instructed to use the walker when he gets up to go. Mental Status Patient Orientation: Normal For Age Transfers Functional [place] Measure 0=Not Assessed/NA 4=Minimal Assistance 1=Total Assistance 5=Supervision or Setup 2=Maximal Assistance 6=Modified [place] 3=Moderate Assistance 7=Complete IndependenceIRFPAI Quality Coding Scale 6 Independent with activity with or without an assistive device 5 Patient requires set up or clean up by helper. Patient completes activity by themselves 4 Supervision or touching assist (CGA). [place] provide cues , steadying assist 3 The helper provides less than half the effort to complete the activity 2 The helper provides more than half the effort to complete the activity 1 Dependent. The helper does all the effort to complete an activity 7 Patient refused to complete or attempt activity 9 The patient did not perform the activity before the current illness or injury 88 Not attempted due to Medical conditions or safety concerns Transfers (B, C, W/C) (FIM): 6 Scootin Rollin Supine to/from Sit: 6 Sit to/from Stand: 6 occasionally needs cues for reaching an armrest when sitting because he can't see it Gait Training Gait (FIM): 5 Distance: 150'x2 Gait Level of Assist: 5 Gait Persons Needed: 1 Gait Assistive Device: FWW slow, antalgic Stair Training Stair Training: Handrails/: 2 handrails Stairs (FIM): 2 #of Steps: 4 Stairs: Pattern: Step to Level of Assist: 5 Balance Picking up an Object (QC): 4 Exercises NuStep Minutes: 15 NuStep Workload: 5 Neuromuscular Tinetti score 20/28 Treatments bed mobility and transfers, ambulation, stair training, functional strengthening, balance training Assessment Current Status: Fair Progress improving strength and balance, will try to let him go to the bathroom by himself but only if he uses a walker PT Short Term Goals Short Term Goals Time Frame: Aug 01, 2016 Transfers (B,C,W/C) (FIM): 6 Gait (FIM): 6 Gait Distance Comment: 600' Gait Assistive Device: FWW PT Nursing Home Goals Nursing Home Goals PT Nursing Home Goals Time Frame: Aug 15, 2016 Transfers (B,C,W/C) (FIM): 6 Sit to Lying (QC): 6 Lying-Sitting on Side/Bed(QC): 6 Sit to Stand (QC): 6 Rollin Roll Left to Right (QC): 6 Chair/Kac-ij-Sphph Xfer(QC): 6 Car Transfer (QC): 4 Does the Patient Walk: Yes Gait (FIM): 6 Distance: 800' Walk 10 feet (QC): 6 Walk 10ft-Uneven Surface(QC): 6 Walk 50ft with 2 Turns (QC): 6 Walk 150 ft (QC): 6 Gait Assistive Device: Cane Single Point # of Steps: 5 1 Step (curb) (QC): 4 4 Steps (QC): 4 12 Steps (QC): 4 Stairs Level Of Assist: 5 PT Plan Problem List Problem List: Activity Tolerance, Functional Strength, Safety, Balance, Gait, Transfer Treatment/Plan Treatment Plan: Continue Plan of Care Treatment Plan: Bed Mobility, Education, Functional Activity Mckay, Functional Strength, Group Therapy, Gait, Safety, Therapeutic Exercise, Transfers Treatment Duration: Aug 15, 2016 Visits Per Week: 10-11 Minutes/Day (M-F): 60-90 Minutes/Day (Sat/Thakur): 15-30 Safety Risks/Education Patient Education: Gait Training, Transfer Techniques, Steps, Safety Issues Teaching Recipient: Patient Teaching Methods: Demonstration, Discussion Response to Teaching: Reinforcement Needed Time/GCodes Time In: 900 Time Out: 1000 Total Billed Treatment Time: 60 Total Billed Treatment 1 visit NM 15 min GT 30 min EX 15 min DAVE VAUGHN PT Jul 26, 2016 09:57
--- NOTE | 2016-07-26 11:36 | Occupational Ther Daily Note ---
OT Current Status-Daily Note Subjective Pt lying in bed getting ready to eat a parfait. Pt agreed to therapy. No c/o pain just fatigue. Mental Status/Objective Patient Orientation: Person Functional [place] Measure 0=Not Assessed/NA 4=Minimal Assistance 1=Total Assistance 5=Supervision or Setup 2=Maximal Assistance 6=Modified [place] 3=Moderate Assistance 7=Complete [place] ADL-Treatment Pt ambulated to bathroom with SBA using FWW. Pt sat at sink and completed grooming and upper body bathing. Pt declined shower and bathing lower body. Pt took increased time to complete ADLs. Pt very conversational and took time to sequence out steps to complete ADLs. Pt able to don/doff shirt by self after setup. Pt was able to complete toileting using grabbars and FWW with supervision. Pt was able to go from supine to sitting EOB using grabbars by self then sit to stand by self, no LOB noted. After therapy, pt lying in bed with call light/phone in reach. All needs met in room. Functional [place] Measure 0=Not Assessed/NA 4=Minimal Assistance 1=Total Assistance 5=Supervision or Setup 2=Maximal Assistance 6=Modified [place] 3=Moderate Assistance 7=Complete IndependenceIRFPAI Quality Coding Scale 6 Independent with activity with or without an assistive device 5 Patient requires set up or clean up by helper. Patient completes activity by themselves 4 Supervision or touching assist (CGA). [place] provide cues , steadying assist 3 The helper provides less than half the effort to complete the activity 2 The helper provides more than half the effort to complete the activity 1 Dependent. The helper does all the effort to complete an activity 7 Patient refused to complete or attempt activity 9 The patient did not perform the activity before the current illness or injury 88 Not attempted due to Medical conditions or safety concerns Grooming (FIM): 6 (Sitting at sink pt is able to complete all grooming skills.) Upper Body (FIM): 5 Toileting (FIM): 5 Transfers (B, C, W/C) (FIM): 5 Toilet/Commode Transfer (FIM): 5 OT Short Term Goals Short Term Goals Time Frame: Aug 01, 2016 Eating(FIM): 5 Grooming(FIM): 5 Bathing(FIM): 5 Upper Body Dressing(FIM): 5 Lower Body Dressing(FIM): 5 Toileting(FIM): 5 Transfers (B,C,W/C) (FIM): 6 Toilet/Commode Transfer(FIM): 5 Additional Short Term Goals: 1-Demonstrate ADL Tasks, 2-Verbalize Understanding , 3-ImproveStrength/Mckay 1=Demonstrate adherence to instructed precautions during ADL tasks. 2=Patient will verbalize/demonstrate understanding of assistive devices/ modifications for ADL. 3=Patient will improve strength/tolerance for activity to enable patient to perform ADL's. OT Enterprise Sales Executive Goals Enterprise Sales Executive Goals Time Frame: Aug 08, 2016 Eating (FIM): 6 Eating (QC): 6 Oral Hygiene (QC): 5 Grooming(FIM): 6 Bathing(FIM): 5 Shower/Bathe Self (QC): 5 Upper Body Dressing(FIM): 6 Upper Body Dressing (QC): 6 Lower Body Dressing(FIM): 6 Lower Body Dressing (QC): 5 On/Off Footwear (QC): 5 Toileting(FIM): 6 Toileting Hygiene (QC): 6 Transfers (B,C,W/C) (FIM): 6 Toilet/Commode Transfer(FIM): 6 Toilet/Commode Transfer (QC): 6 Shower Transfer(FIM): 5 Additional Goals: 1-Demonstrate ADL Tasks, 2-Verbalize Understanding, 3- ImproveStrength/Mckay 1=Demonstrate adherence to instructed precautions during ADL tasks. 2=Patient will verbalize/demonstrate understanding of assistive devices/ modifications for ADL. 3=Patient will improve strength/tolerance for activity to enable patient to perform ADL's. OT Education/Plan Discharge Recommendations Plan/Recommendations: Continue POC Treatment Plan/Plan of Care Patient would benefit from OT for education, treatment and training to promote independence in ADL's, mobility, safety and/or upper extremity function for ADL' s. Plan of Care: ADL Retraining, Caregiver Training, Cognitive Retraining, Functional Mobility, Group Exercise/Act as Ind, UE Funct Exercise/Act Treatment Duration: Aug 15, 2016 Visits Per Week: 10-11 Minutes/Day (M-F): 60-90 Minutes/Day (Sat/Thakur): 15-30 Agreement: Yes Rehab Potential: Fair Time/GCodes Start Time: 10:00 Stop Time: 11:00 Total Time Billed (hr/min): 60 Billed Treatment Time 1 visit-ADL 4 (60 min) YUNIOR WAGNER Jul 26, 2016 11:36
--- NOTE | 2016-07-26 15:00 | Therapy Group Daily Note ---
Therapy Daily Group Note Patient Education Topic Other List Below (breathing) Exercises Other (using music to facilitate relaxation;importance of relaxation for healing ) Other/Notes Pt ambulated to therapy XIOMARA dior, VAUGHN, FWW. Pt participated in socialization by introducing self, place of living, what tools used for relaxation. Guest speaker from [facility] introduced instrument (shakuhachi-Hebrew flute) for example of relaxation technique. Pt was asked to give examples of the type of music likes to listen and relax too. Pt contributed to conversations and appropriately answered questions. Pt ambulated back to room, VAUGHN, FWW. Pt sitting EOB in room, call light/phone in reach. All needs met. Start Time: 13:00 Stop Time: 14:15 Total Billed Treatment Time: 75 Total Billed Treatment 1-GRP YUNIOR WAGNER Jul 26, 2016 15:00
[2016-07-26] MEDS: warFARin 3 MG (COUMADIN) TAB PO SCH (17:33)
[2016-07-26 17:35] VITALS: BP 124/74
[2016-07-26] MEDS: ATORVASTATIN 40 MG (LIPITOR) TABLET PO SCH (20:15)
[2016-07-27 05:24] LABS: INR 3.5 (0.8-1.4); PROTHROMBIN TIME PATIENT 35.4 SEC (12.2-14.7)
[2016-07-27 05:34] LABS: ANION GAP 12 MMOL/L (5-14); BLOOD UREA NITROGEN 8 MG/DL (7-18); BUN/CREATININE RATIO 11; CALCIUM 9.4 MG/DL (8.5-10.1); CARBON DIOXIDE 25 MMOL/L (21-32); CHLORIDE 91 MMOL/L (98-107); CREATININE SERUM 0.76 MG/DL (0.60-1.30); GFR ESTIMATED > 60; GLUCOSE 100 MG/DL (70-105); POTASSIUM 3.9 MMOL/L (3.6-5.0); SODIUM 128 MMOL/L (135-145)
[2016-07-27 06:00] VITALS: BP 123/74
[2016-07-27] MEDS: KCL 20 MEQ TAB (K-DUR) PO SCH (06:16)
[2016-07-27] MEDS: HYDROcodone/APAP 5 MG/325 MG (LORTAB) TAB PO PRN ×4 (06:16→21:26)
[2016-07-27] MEDS: FUROSEMIDE 40 MG (LASIX) TAB PO SCH ×2 (06:16→17:21)
[2016-07-27] MEDS: CARVEDILOL 12.5 MG (COREG) TABLET PO SCH ×2 (08:18→20:31)
[2016-07-27] MEDS: SOTALOL 80 MG (BETAPACE) TAB PO SCH ×2 (08:18→20:31)
--- NOTE | 2016-07-27 09:47 | Physical Therapy Daily Note ---
PT Daily Note-Current Subjective Pt. agrees to Rx with encouragement. Shared what his home is like and some medical history. Pain Numeric Pain Scale: 3 Location: Lower Location Body Site: Back Pain Description: Ache Transfers Functional [place] Measure 0=Not Assessed/NA 4=Minimal Assistance 1=Total Assistance 5=Supervision or Setup 2=Maximal Assistance 6=Modified [place] 3=Moderate Assistance 7=Complete IndependenceIRFPAI Quality Coding Scale 6 Independent with activity with or without an assistive device 5 Patient requires set up or clean up by helper. Patient completes activity by themselves 4 Supervision or touching assist (CGA). [place] provide cues , steadying assist 3 The helper provides less than half the effort to complete the activity 2 The helper provides more than half the effort to complete the activity 1 Dependent. The helper does all the effort to complete an activity 7 Patient refused to complete or attempt activity 9 The patient did not perform the activity before the current illness or injury 88 Not attempted due to Medical conditions or safety concerns Transfers (B, C, W/C) (FIM): 5 Scootin Rollin Supine to/from Sit: 5 Sit to/from Stand: 5 Bed to/from Chair: 5 Pt. was educated on sup to sit TRF technique for log roll and back protection etc. Gait Training Does the Patient Walk?: Yes Gait (FIM): 5 Distance (FIM): 3=150 ft (300x2,150) Gait Level of Assist: 5 Gait Persons Needed: 1 Gait Assistive Device: FWW Stair Training Stair Training: Handrails/: 2 handrails Stairs (FIM): 2 #of Steps: 4 Stairs: Pattern: Step to Level of Assist: 4 Exercises Supine Ex: Bridging, Ankle pumps, Quad Set, Rolling, Glut sets, Heel Slides, Short Arc Quads, Scooting, Straight leg raise, Hip abd/add Supine Reps: 20 Standing: Hip Abduction, Hamstring curls, Heel/toe raises, Marching, Mini squats Standing Reps: 10 NuStep Minutes: 12 NuStep Workload: 3 Treatments pt. toileted for urination standing up Mod I Assessment Current Status: Good Progress PT Short Term Goals Short Term Goals Time Frame: Aug 01, 2016 Transfers (B,C,W/C) (FIM): 6 Gait (FIM): 6 Gait Distance Comment: 600' Gait Assistive Device: FWW PT Power Station Operator Goals Power Station Operator Goals PT Shelter Goals Time Frame: Aug 15, 2016 Transfers (B,C,W/C) (FIM): 6 Sit to Lying (QC): 6 Lying-Sitting on Side/Bed(QC): 6 Sit to Stand (QC): 6 Rollin Roll Left to Right (QC): 6 Chair/Xdc-mo-Lpbzf Xfer(QC): 6 Car Transfer (QC): 4 Does the Patient Walk: Yes Gait (FIM): 6 Distance: 800' Walk 10 feet (QC): 6 Walk 10ft-Uneven Surface(QC): 6 Walk 50ft with 2 Turns (QC): 6 Walk 150 ft (QC): 6 Gait Assistive Device: Cane Single Point # of Steps: 5 1 Step (curb) (QC): 4 4 Steps (QC): 4 12 Steps (QC): 4 Stairs Level Of Assist: 5 PT Plan Treatment/Plan Treatment Plan: Continue Plan of Care Treatment Plan: Bed Mobility, Education, Functional Activity Mckay, Functional Strength, Group Therapy, Gait, Safety, Therapeutic Exercise, Transfers Treatment Duration: Aug 15, 2016 Visits Per Week: 10-11 Minutes/Day (M-F): 60-90 Minutes/Day (Sat/Thakur): 15-30 Safety Risks/Education Patient Education: Gait Training, Transfer Techniques, Steps, Correct Positioning, Safety Issues Teaching Recipient: Patient Teaching Methods: Demonstration, Discussion Response to Teaching: Verbalize Understanding, Return Demonstration, Reinforcement Needed Time/GCodes Time In: 810 Time Out: 940 Total Billed Treatment Time: 90 Total Billed Treatment 1,FA60m,EX30m G Codes Necessary: MILTON Esteban HYPERION DEVELOPER Jul 27, 2016 09:47
--- NOTE | 2016-07-27 11:53 | Occupational Ther Daily Note ---
OT Current Status-Daily Note Subjective Pt. reports 10/10 pain "all over." Nursing notified and provides a pain pill. Appearance Pt. in bed. Agreeable to shower. Mental Status/Objective Patient Orientation: Unable to Assess Functional [place] Measure 0=Not Assessed/NA 4=Minimal Assistance 1=Total Assistance 5=Supervision or Setup 2=Maximal Assistance 6=Modified [place] 3=Moderate Assistance 7=Complete [place] Pt. seems to have some cognitive difficulty this morning. Reports thinking the call light is a bottle. Requires re-direction several times during treatment. ADL-Treatment Functional [place] Measure 0=Not Assessed/NA 4=Minimal Assistance 1=Total Assistance 5=Supervision or Setup 2=Maximal Assistance 6=Modified [place] 3=Moderate Assistance 7=Complete IndependenceIRFPAI Quality Coding Scale 6 Independent with activity with or without an assistive device 5 Patient requires set up or clean up by helper. Patient completes activity by themselves 4 Supervision or touching assist (CGA). [place] provide cues , steadying assist 3 The helper provides less than half the effort to complete the activity 2 The helper provides more than half the effort to complete the activity 1 Dependent. The helper does all the effort to complete an activity 7 Patient refused to complete or attempt activity 9 The patient did not perform the activity before the current illness or injury 88 Not attempted due to Medical conditions or safety concerns Grooming (FIM): 5 (set up to brush hair.) Bathing (FIM): 5 (Pt. requires supervision to shower self. Pt. takes 50 minute shower and states, "it feels good.") Upper Body (FIM): 5 Lower Body Dressing (FIM): 5 On/Off Footwear (QC): 5 Transfers (B, C, W/C) (FIM): 5 Shower Transfer(FIM): 5 (supervision) Pt. agrees to shower. Requires cues for safety but overall requires supervision only, and cues to sequence steps. Pt. also requires increased time , and state, "you better let me go at my own pace." Other Treatment After shower, pt. agrees to ambulate to therapy gym. Completed 15 minutes on armbike to increase overall strength and endurance. Tolerated treatment well. Education OT Patient Education: Exercise program, Modified ADL techniques, Progress toward Goal/Update tx plan, Purpose of tx/functional activities, Reviewed precautions, Rehab process, Transfer techniques Teaching Recipient: Patient Teaching Methods: Demonstration, Discussion Response to Teaching: Verbalize Understanding, Return Demonstration OT Short Term Goals Short Term Goals Time Frame: Aug 01, 2016 Eating(FIM): 5 Grooming(FIM): 5 Bathing(FIM): 5 Upper Body Dressing(FIM): 5 Lower Body Dressing(FIM): 5 Toileting(FIM): 5 Transfers (B,C,W/C) (FIM): 6 Toilet/Commode Transfer(FIM): 5 Additional Short Term Goals: 1-Demonstrate ADL Tasks, 2-Verbalize Understanding , 3-ImproveStrength/Mckay 1=Demonstrate adherence to instructed precautions during ADL tasks. 2=Patient will verbalize/demonstrate understanding of assistive devices/ modifications for ADL. 3=Patient will improve strength/tolerance for activity to enable patient to perform ADL's. OT Furnace Liner Goals [place] Goals Time Frame: Aug 08, 2016 Eating (FIM): 6 Eating (QC): 6 Oral Hygiene (QC): 5 Grooming(FIM): 6 Bathing(FIM): 5 Shower/Bathe Self (QC): 5 Upper Body Dressing(FIM): 6 Upper Body Dressing (QC): 6 Lower Body Dressing(FIM): 6 Lower Body Dressing (QC): 5 On/Off Footwear (QC): 5 Toileting(FIM): 6 Toileting Hygiene (QC): 6 Transfers (B,C,W/C) (FIM): 6 Toilet/Commode Transfer(FIM): 6 Toilet/Commode Transfer (QC): 6 Shower Transfer(FIM): 5 Additional Goals: 1-Demonstrate ADL Tasks, 2-Verbalize Understanding, 3- ImproveStrength/Mckay 1=Demonstrate adherence to instructed precautions during ADL tasks. 2=Patient will verbalize/demonstrate understanding of assistive devices/ modifications for ADL. 3=Patient will improve strength/tolerance for activity to enable patient to perform ADL's. OT Education/Plan Problem List/Assessment Assessment: Decreased Activ Tolerance, Decreased UE Strength, Dependent Transfers, Impaired Cognition, Impaired I ADL's, Impaired Self-Care Skills Discharge Recommendations Plan/Recommendations: Continue POC Therapy D/C Recommendations: Assisted Living Treatment Plan/Plan of Care Treatment,Training & Education: Yes Patient would benefit from OT for education, treatment and training to promote independence in ADL's, mobility, safety and/or upper extremity function for ADL' s. Plan of Care: ADL Retraining, Caregiver Training, Cognitive Retraining, Functional Mobility, Group Exercise/Act as Ind, UE Funct Exercise/Act Treatment Duration: Aug 15, 2016 Visits Per Week: 10-11 Minutes/Day (M-F): 60-90 Minutes/Day (Sat/Thakur): 15-30 Agreement: Yes Rehab Potential: Fair Time/GCodes Start Time: 10:25 Stop Time: 11:55 Total Time Billed (hr/min): 90 Billed Treatment Time 1, ADL x 60minutes, EX x 30minutes ALISIA AVILA OT Jul 27, 2016 11:53
[2016-07-27] MEDS: warFARin 3 MG (COUMADIN) TAB PO SCH (17:21)
[2016-07-27 18:27] VITALS: BP 123/79
[2016-07-27] MEDS: ATORVASTATIN 40 MG (LIPITOR) TABLET PO SCH (20:31)
[2016-07-28] MEDS: HYDROcodone/APAP 5 MG/325 MG (LORTAB) TAB PO PRN ×5 (01:29→20:13)
[2016-07-28 05:02] VITALS: BP 106/68
[2016-07-28] MEDS: KCL 20 MEQ TAB (K-DUR) PO SCH (06:00)
[2016-07-28] MEDS: FUROSEMIDE 40 MG (LASIX) TAB PO SCH ×2 (06:00→18:00)
[2016-07-28] MEDS: CARVEDILOL 12.5 MG (COREG) TABLET PO SCH ×2 (08:17→20:13)
[2016-07-28] MEDS: SOTALOL 80 MG (BETAPACE) TAB PO SCH ×2 (08:17→20:13)
[2016-07-28] MEDS: warFARin 3 MG (COUMADIN) TAB PO SCH (18:00)
[2016-07-28 18:02] VITALS: BP 122/73
[2016-07-28] MEDS: ATORVASTATIN 40 MG (LIPITOR) TABLET PO SCH (20:13)
[2016-07-29] MEDS: HYDROcodone/APAP 5 MG/325 MG (LORTAB) TAB PO PRN ×6 (00:18→21:53)
[2016-07-29 05:01] VITALS: BP 124/76
[2016-07-29] MEDS: KCL 20 MEQ TAB (K-DUR) PO SCH (06:02)
[2016-07-29] MEDS: FUROSEMIDE 40 MG (LASIX) TAB PO SCH ×2 (06:02→17:38)
[2016-07-29 06:13] LABS: INR 3.7 (0.8-1.4); PROTHROMBIN TIME PATIENT 36.7 SEC (12.2-14.7)
[2016-07-29 06:29] LABS: ANION GAP 13 MMOL/L (5-14); BLOOD UREA NITROGEN 11 MG/DL (7-18); BUN/CREATININE RATIO 11; CALCIUM 9.9 MG/DL (8.5-10.1); CARBON DIOXIDE 25 MMOL/L (21-32); CHLORIDE 89 MMOL/L (98-107); CREATININE SERUM 0.97 MG/DL (0.60-1.30); GFR ESTIMATED > 60; GLUCOSE 135 MG/DL (70-105); POTASSIUM 3.9 MMOL/L (3.6-5.0); SODIUM 127 MMOL/L (135-145)
--- NOTE | 2016-07-29 08:22 | Progress Note (SOAP) ---
Subjective Subjective/Events-last exam subdural hematoma. Hyponatremia sodium 127. Mitral valve prosthetic INR 3.7 hold warfarin today. Patient getting around with a walker Objective Exam Vital Signs Date Time Temp Pulse Resp B/P Pulse Ox O2 Delivery O2 Flow Rate FiO2 07/29/16 05:01 97.3 70 16 124/76 96 Room Air 07/28/16 20:31 Room Air 07/28/16 18:02 97.4 74 18 122/73 97 Room Air 07/28/16 08:26 Room Air I & O 07/29/16 07:00 Intake Total 1490 ml Balance 1490 ml Capillary Refill : General Appearance: No Apparent Distress WD/WN HEENT: Normal ENT Inspection Neck: Full Range of Motion Normal Inspection Non Tender Respiratory: Chest Non Tender Lungs Clear Normal Breath Sounds No Accessory Muscle Use No Respiratory Distress Cardiovascular: Regular Rate, Rhythm No Murmur Gastrointestinal: non tender soft Results Lab Laboratory Tests 07/29/16 05:31: Anion Gap 13, BUN/Creatinine Ratio 11, Blood Urea Nitrogen 11, Calcium Level 9.9 , Carbon Dioxide Level 25, Chloride Level 89L, Creatinine 0.97, Estimat Glomerular Filtration Rate > 60, Glucose Level 135H, INR Comment 3.7H, Potassium Level 3.9, Prothrombin Time 36.7H, Sodium Level 127L Assessment/Plan Assessment/Plan Assess & Plan/Chief Complaint subdural hematoma. Hyponatremia. Mitral valve replacement. Coronary artery disease. Sore all over. . 07/26/16. Subdural hematoma. Hyponatremia sodium 127 today. To start fluid restriction yesterday. Patient feeling okay. Patient getting around with walker. . 07/29/16. Subdural hematoma. Hyponatremia is sodium 127 mitral valve replacement INR 3.7. Coronary artery disease. Patient feeling better Diagnosis/Problems: Clinical Quality Measures DVT/VTE Risk/Contraindication: Risk Factor Score Per Nursin RFS Level Per Nursing on Admit: 2=Moderate MARCELLA TAMEZ DO Jul 29, 2016 08:22
[2016-07-29] MEDS: CARVEDILOL 12.5 MG (COREG) TABLET PO SCH ×2 (09:06→20:21)
[2016-07-29] MEDS: SOTALOL 80 MG (BETAPACE) TAB PO SCH ×2 (09:06→20:21)
--- NOTE | 2016-07-29 09:57 | Physical Therapy Daily Note ---
PT Daily Note-Current Subjective Patient in bed pre tx, eating breakfast, patient is irritated that he has therapy while eating, but he has a schedule and knew what time therapy was supposed to be there. Pain Numeric Pain Scale: 7 Comment: low back Appearance Patient in bed post tx to finish breakfast, has nurse call, phone, tray, all needs met. Mental Status Patient Orientation: Normal For Age Transfers Functional [place] Measure 0=Not Assessed/NA 4=Minimal Assistance 1=Total Assistance 5=Supervision or Setup 2=Maximal Assistance 6=Modified [place] 3=Moderate Assistance 7=Complete IndependenceIRFPAI Quality Coding Scale 6 Independent with activity with or without an assistive device 5 Patient requires set up or clean up by helper. Patient completes activity by themselves 4 Supervision or touching assist (CGA). [place] provide cues , steadying assist 3 The helper provides less than half the effort to complete the activity 2 The helper provides more than half the effort to complete the activity 1 Dependent. The helper does all the effort to complete an activity 7 Patient refused to complete or attempt activity 9 The patient did not perform the activity before the current illness or injury 88 Not attempted due to Medical conditions or safety concerns Transfers (B, C, W/C) (FIM): 5 Scootin Rollin Supine to/from Sit: 6 Sit to/from Stand: 5 patient a little unsteady sometimes upon standing Gait Training Gait (FIM): 5 Distance: 500', 150' Gait Level of Assist: 5 Gait Persons Needed: 1 Gait Assistive Device: FWW very slow ambulation, antalgic Exercises Standing: Hip Abduction, Hamstring curls, Heel/toe raises, Mini squats Standing Reps: 20 NuStep Minutes: 15 NuStep Workload: 5 Treatments bed mobility and transfers, ambulation, functional strengthening Assessment Current Status: Fair Progress improving endurance but still needs frequent rest breaks due to pain and fatigue PT Short Term Goals Short Term Goals Time Frame: Aug 01, 2016 Transfers (B,C,W/C) (FIM): 6 Gait (FIM): 6 Gait Distance Comment: 600' Gait Assistive Device: FWW PT Retail Chain Store Area Supervisor Goals Retail Chain Store Area Supervisor Goals PT Assisted Goals Time Frame: Aug 15, 2016 Transfers (B,C,W/C) (FIM): 6 Sit to Lying (QC): 6 Lying-Sitting on Side/Bed(QC): 6 Sit to Stand (QC): 6 Rollin Roll Left to Right (QC): 6 Chair/Gnl-mj-Ygpzc Xfer(QC): 6 Car Transfer (QC): 4 Does the Patient Walk: Yes Gait (FIM): 6 Distance: 800' Walk 10 feet (QC): 6 Walk 10ft-Uneven Surface(QC): 6 Walk 50ft with 2 Turns (QC): 6 Walk 150 ft (QC): 6 Gait Assistive Device: Cane Single Point # of Steps: 5 1 Step (curb) (QC): 4 4 Steps (QC): 4 12 Steps (QC): 4 Stairs Level Of Assist: 5 PT Plan Problem List Problem List: Activity Tolerance, Functional Strength, Safety, Balance, Gait, Transfer Treatment/Plan Treatment Plan: Continue Plan of Care Treatment Plan: Bed Mobility, Education, Functional Activity Mckay, Functional Strength, Group Therapy, Gait, Safety, Therapeutic Exercise, Transfers Treatment Duration: Aug 15, 2016 Visits Per Week: 10-11 Minutes/Day (M-F): 60-90 Minutes/Day (Sat/Thakur): 15-30 Safety Risks/Education Patient Education: Gait Training, Transfer Techniques, Safety Issues Teaching Recipient: Patient Teaching Methods: Demonstration, Discussion Response to Teaching: Reinforcement Needed Time/GCodes Time In: 900 Time Out: 1000 Total Billed Treatment Time: 60 Total Billed Treatment 1 visit EX 30 min GT 30 min DAVE VAUGHN PT Jul 29, 2016 09:57
--- NOTE | 2016-07-29 13:19 | PM & R (SOAP) Progress Note ---
Subjective Subjective/Events-last exam Patient was seen in his room this afternoon Appreciate therapy and Dr Tena notes and orders Labs noted.Patient SBA for transfers and gait with WW Objective Exam Last Set of Vital Signs Vital Signs Date Time Temp Pulse Resp B/P Pulse Ox O2 Delivery O2 Flow Rate FiO2 07/29/16 09:50 Room Air 07/29/16 05:01 97.3 70 16 124/76 96 Capillary Refill : I&O Bad tableGeneral: Alert, Cooperative, No Acute Distress HEENT: Atraumatic, PERRLA, EOMI, Mucous Memb Moist/[place] Neck: Supple, No JVD Lungs: Clear to Auscultation Heart: Regular Rate Abdomen: Normal Bowel Sounds, Soft, No Tenderness Extremities: No Edema Neuro: Other (impaired balance and some memory impairment) Results Lab Laboratory Tests 07/27/16 04:56: Anion Gap 12, BUN/Creatinine Ratio 11, Blood Urea Nitrogen 8, Calcium Level 9.4 , Carbon Dioxide Level 25, Chloride Level 91L, Creatinine 0.76, Estimat Glomerular Filtration Rate > 60, Glucose Level 100, INR Comment 3.5H, Potassium Level 3.9, Prothrombin Time 35.4H, Sodium Level 128L 07/29/16 05:31: Anion Gap 13, BUN/Creatinine Ratio 11, Blood Urea Nitrogen 11, Calcium Level 9.9 , Carbon Dioxide Level 25, Chloride Level 89L, Creatinine 0.97, Estimat Glomerular Filtration Rate > 60, Glucose Level 135H, INR Comment 3.7H, Potassium Level 3.9, Prothrombin Time 36.7H, Sodium Level 127L Assessment/Plan Assessment Fall with SDH treted medically Chronic hyponatremia Anemia Cardiomyopathy s/p ICD Hx of rercurrent falls Chronic anticoagulation Plan Continue PT/OT/ST Team Conference 07-31-16 Follow INR for chronic anticoagulation-a bit high at this point F/U with Dr neal PRN Trend Oswuofhaolno-wqzrkct-ntzxscsbrw stable KEVEN MIRELES MD Jul 29, 2016 13:19
--- NOTE | 2016-07-29 13:29 | Physical Therapy Daily Note ---
PT Daily Note-Current Subjective Patient in bed pre tx, agrees to PT. Patient states he is very cold and spends the next 10 min putting on shirts and hospital gowns, but he does stand the whole time, which works on standing balance. Pain Numeric Pain Scale: 8 Comment: low back, nurse notified Appearance Patient in bed post tx with nurse call, phone, tray, all needs met. Mental Status Patient Orientation: Person, Place, Situation Transfers Functional [place] Measure 0=Not Assessed/NA 4=Minimal Assistance 1=Total Assistance 5=Supervision or Setup 2=Maximal Assistance 6=Modified [place] 3=Moderate Assistance 7=Complete IndependenceIRFPAI Quality Coding Scale 6 Independent with activity with or without an assistive device 5 Patient requires set up or clean up by helper. Patient completes activity by themselves 4 Supervision or touching assist (CGA). [place] provide cues , steadying assist 3 The helper provides less than half the effort to complete the activity 2 The helper provides more than half the effort to complete the activity 1 Dependent. The helper does all the effort to complete an activity 7 Patient refused to complete or attempt activity 9 The patient did not perform the activity before the current illness or injury 88 Not attempted due to Medical conditions or safety concerns Transfers (B, C, W/C) (FIM): 5 Scootin Rollin Supine to/from Sit: 6 Sit to/from Stand: 5 Gait Training Gait (FIM): 5 Distance: 500', 150' Gait Level of Assist: 5 Gait Persons Needed: 1 Gait Assistive Device: FWW Patient ambulated much more slowly due to pain, tends to keep walker too far out in front of him. Treatments dressing, balance training, ambulation Assessment Current Status: Fair Progress PT Short Term Goals Short Term Goals Time Frame: Aug 01, 2016 Transfers (B,C,W/C) (FIM): 6 Gait (FIM): 6 Gait Distance Comment: 600' Gait Assistive Device: FWW PT Nursing Home Goals Nursing Home Goals PT Plastic Frame Inserter Goals Time Frame: Aug 15, 2016 Transfers (B,C,W/C) (FIM): 6 Sit to Lying (QC): 6 Lying-Sitting on Side/Bed(QC): 6 Sit to Stand (QC): 6 Rollin Roll Left to Right (QC): 6 Chair/Apr-bw-Rgjhq Xfer(QC): 6 Car Transfer (QC): 4 Does the Patient Walk: Yes Gait (FIM): 6 Distance: 800' Walk 10 feet (QC): 6 Walk 10ft-Uneven Surface(QC): 6 Walk 50ft with 2 Turns (QC): 6 Walk 150 ft (QC): 6 Gait Assistive Device: Cane Single Point # of Steps: 5 1 Step (curb) (QC): 4 4 Steps (QC): 4 12 Steps (QC): 4 Stairs Level Of Assist: 5 PT Plan Problem List Problem List: Activity Tolerance, Functional Strength, Safety, Balance, Gait, Transfer Treatment/Plan Treatment Plan: Continue Plan of Care Treatment Plan: Bed Mobility, Education, Functional Activity Mckay, Functional Strength, Group Therapy, Gait, Safety, Therapeutic Exercise, Transfers Treatment Duration: Aug 15, 2016 Visits Per Week: 10-11 Minutes/Day (M-F): 60-90 Minutes/Day (Sat/Thakur): 15-30 Safety Risks/Education Patient Education: Gait Training, Transfer Techniques, Safety Issues Teaching Recipient: Patient Teaching Methods: Demonstration, Discussion Response to Teaching: Reinforcement Needed Time/GCodes Time In: 1300 Time Out: 1330 Total Billed Treatment Time: 30 Total Billed Treatment 1 visit NM 10 min GT 20 min DAVE VAUGHN PT Jul 29, 2016 13:29
--- NOTE | 2016-07-29 13:35 | Occupational Ther Daily Note ---
OT Current Status-Daily Note Subjective Pt alert, lying in bed finishing breakfast. Pt agreed to therapy. No c/o pain at this time. Mental Status/Objective Patient Orientation: Person, Place, Time, Situation Functional [place] Measure 0=Not Assessed/NA 4=Minimal Assistance 1=Total Assistance 5=Supervision or Setup 2=Maximal Assistance 6=Modified [place] 3=Moderate Assistance 7=Complete [place] ADL-Treatment Pt declined a shower or sponge bathe today. Pt was able to set self up for breakfast by opening container/packages then using regular utensils to feed self. Then pt was able to transfer self to toilet and manipulate clothing and cleanse self. Pt is able to go from supine to sit and transfer with SBA. Functional [place] Measure 0=Not Assessed/NA 4=Minimal Assistance 1=Total Assistance 5=Supervision or Setup 2=Maximal Assistance 6=Modified [place] 3=Moderate Assistance 7=Complete IndependenceIRFPAI Quality Coding Scale 6 Independent with activity with or without an assistive device 5 Patient requires set up or clean up by helper. Patient completes activity by themselves 4 Supervision or touching assist (CGA). [place] provide cues , steadying assist 3 The helper provides less than half the effort to complete the activity 2 The helper provides more than half the effort to complete the activity 1 Dependent. The helper does all the effort to complete an activity 7 Patient refused to complete or attempt activity 9 The patient did not perform the activity before the current illness or injury 88 Not attempted due to Medical conditions or safety concerns Eating (FIM): 6 Toileting (FIM): 6 Transfers (B, C, W/C) (FIM): 5 Toilet/Commode Transfer (FIM): 5 Other Treatment Pt takes increased time to complete tasks. Pt was able to complete resistive UE /hand exercises then arm bike. Arm bike duration 15 min at 20 martines resistance to increase strength and activity tolerance for daily functional tasks. After therapy, pt sitting on EOB with call light/phone in reach. All needs met in room. OT Short Term Goals Short Term Goals Time Frame: Aug 01, 2016 Eating(FIM): 5 Grooming(FIM): 5 Bathing(FIM): 5 Upper Body Dressing(FIM): 5 Lower Body Dressing(FIM): 5 Toileting(FIM): 5 Transfers (B,C,W/C) (FIM): 6 Toilet/Commode Transfer(FIM): 5 Additional Short Term Goals: 1-Demonstrate ADL Tasks, 2-Verbalize Understanding , 3-ImproveStrength/[place] 1=Demonstrate adherence to instructed precautions during ADL tasks. 2=Patient will verbalize/demonstrate understanding of assistive devices/ modifications for ADL. 3=Patient will improve strength/tolerance for activity to enable patient to perform ADL's. OT Senior Care Goals Senior Budget Analyst Goals Time Frame: Aug 08, 2016 Eating (FIM): 6 Eating (QC): 6 Oral Hygiene (QC): 5 Grooming(FIM): 6 Bathing(FIM): 5 Shower/Bathe Self (QC): 5 Upper Body Dressing(FIM): 6 Upper Body Dressing (QC): 6 Lower Body Dressing(FIM): 6 Lower Body Dressing (QC): 5 On/Off Footwear (QC): 5 Toileting(FIM): 6 Toileting Hygiene (QC): 6 Transfers (B,C,W/C) (FIM): 6 Toilet/Commode Transfer(FIM): 6 Toilet/Commode Transfer (QC): 6 Shower Transfer(FIM): 5 Additional Goals: 1-Demonstrate ADL Tasks, 2-Verbalize Understanding, 3- ImproveStrength/[place] 1=Demonstrate adherence to instructed precautions during ADL tasks. 2=Patient will verbalize/demonstrate understanding of assistive devices/ modifications for ADL. 3=Patient will improve strength/tolerance for activity to enable patient to perform ADL's. OT Education/Plan Discharge Recommendations Plan/Recommendations: Continue POC Treatment Plan/Plan of Care Patient would benefit from OT for education, treatment and training to promote independence in ADL's, mobility, safety and/or upper extremity function for ADL' s. Plan of Care: ADL Retraining, Caregiver Training, Cognitive Retraining, Functional Mobility, Group Exercise/Act as Ind, UE Funct Exercise/Act Treatment Duration: Aug 15, 2016 Visits Per Week: 10-11 Minutes/Day (M-F): 60-90 Minutes/Day (Sat/Thakur): 15-30 Agreement: Yes Rehab Potential: Fair Time/GCodes Start Time: 10:00 Stop Time: 11:15 Total Time Billed (hr/min): 75 Billed Treatment Time 1 visit-FA 3 (52 min) EX 2 (23 min) YUNIOR WAGNER Jul 29, 2016 13:34
[2016-07-29 18:52] VITALS: BP 121/74
[2016-07-29] MEDS: ATORVASTATIN 40 MG (LIPITOR) TABLET PO SCH (20:21)
[2016-07-30 06:00] VITALS: BP 129/71
[2016-07-30 06:16] LABS: INR 3.3 (0.8-1.4); PROTHROMBIN TIME PATIENT 33.5 SEC (12.2-14.7)
[2016-07-30 06:23] LABS: ANION GAP 13 MMOL/L (5-14); BLOOD UREA NITROGEN 11 MG/DL (7-18); BUN/CREATININE RATIO 13; CALCIUM 10.2 MG/DL (8.5-10.1); CARBON DIOXIDE 26 MMOL/L (21-32); CHLORIDE 92 MMOL/L (98-107); CREATININE SERUM 0.87 MG/DL (0.60-1.30); GFR ESTIMATED > 60; GLUCOSE 115 MG/DL (70-105); POTASSIUM 3.7 MMOL/L (3.6-5.0); SODIUM 131 MMOL/L (135-145)
[2016-07-30] MEDS: FUROSEMIDE 40 MG (LASIX) TAB PO SCH ×2 (06:27→17:39)
[2016-07-30] MEDS: KCL 20 MEQ TAB (K-DUR) PO SCH (06:27)
[2016-07-30] MEDS: HYDROcodone/APAP 5 MG/325 MG (LORTAB) TAB PO PRN ×3 (06:27→20:27)
--- NOTE | 2016-07-30 06:59 | Diagnostic Imaging Report ---
PROCEDURE: CT head without contrast. TECHNIQUE: Multiple contiguous axial images were obtained through the brain without the use of intravenous contrast. INDICATION: Fall hitting left side of head. Patient is on Coumadin. History of previous subdural. Comparison with 07/06/2016. FINDINGS: There has been development of mixed density subdural hematoma in the left temporal parietal region since previous exam. This measures approximately 8 mm in greatest width. There is diffuse cortical atrophy. No shift of the midline. Ventricles are not dilated. There is chronic subdural fluid noted on the right. Basal cisterns are clear. Bone windows show no evidence of calvarial fractures. The mastoid air cells and paranasal sinuses are clear. IMPRESSION: 1. Mixed density subdural hematoma consistent with subacute process left temporal parietal region. This is causing minimal mass effect. This is in agreement with the preliminary report. Dictated by: Dictated on workstation # [id number]
[2016-07-30] MEDS ORDERED: ONDANSETRON 4 MG (ZOFRAN) ORAL DISSOLVE TAB PO PRN (08:00)
--- NOTE | 2016-07-30 08:05 | Diagnostic Imaging Report ---
PROCEDURE: CT head without contrast. TECHNIQUE: Multiple contiguous axial images were obtained through the brain without the use of intravenous contrast. INDICATION: Subdural collections. The exam compared with study 07/29/2016. FINDINGS: Bilateral predominantly frontal, parietal, and temporal extra-axial subdural collections are present, overall unchanged in volume. Fluid composition predominantly CSF in density and old; however, elements of more recent hemorrhage left greater than right in the inferior frontal convexities are noted. The dense component of the collection showed no change. No resultant shift or herniation. Findings are superimposed upon some chronic atrophy and white matter disease as well as atherosclerotic vascular calcifications, stable. IMPRESSION: Unchanged volume of bilateral subdural collections appear to reflect old and recent blood products. The dense component showing no progression and no resultant mass effect or shift. Dictated by: Dictated on workstation # [id number]
[2016-07-30] MEDS: SOTALOL 80 MG (BETAPACE) TAB PO SCH ×2 (08:13→20:26)
[2016-07-30] MEDS: CARVEDILOL 12.5 MG (COREG) TABLET PO SCH ×2 (08:13→20:27)
--- NOTE | 2016-07-30 08:16 | Progress Note (SOAP) ---
Subjective Subjective/Events-last exam patient feeling better this morning. Patient coherent. Patient getting pencil on the bed and with socks slipped and hit his head approximately 4 feet from the floor. CAT scan of the head shows mixed density subdural hematoma. Second CAT scan of the head shows the same. Patient stable. To do neuro checks Objective Exam Vital Signs Date Time Temp Pulse Resp B/P Pulse Ox O2 Delivery O2 Flow Rate FiO2 07/30/16 06:00 98.9 66 18 129/71 93 Room Air 07/29/16 18:52 98.2 70 18 121/74 95 Room Air 07/29/16 09:50 Room Air I & O 07/30/16 07:00 Intake Total 1900 ml Output Total 700 ml Balance 1200 ml Capillary Refill : General Appearance: No Apparent Distress WD/WN HEENT: Normal ENT Inspection Neck: Normal Inspection Respiratory: Chest Non Tender Lungs Clear Normal Breath Sounds No Accessory Muscle Use No Respiratory Distress Cardiovascular: Regular Rate, Rhythm Gastrointestinal: non tender soft Results Lab Laboratory Tests 07/30/16 05:43 Laboratory Tests 07/30/16 05:43: Anion Gap 13, BUN/Creatinine Ratio 13, Blood Urea Nitrogen 11, Calcium Level 10.2H, Carbon Dioxide Level 26, Chloride Level 92L, Creatinine 0.87, Estimat Glomerular Filtration Rate > 60, Glucose Level 115H, INR Comment 3.3H, Potassium Level 3.7, Prothrombin Time 33.5H, Sodium Level 131L Assessment/Plan Assessment/Plan Assess & Plan/Chief Complaint subdural hematoma. Hyponatremia. Mitral valve replacement. Coronary artery disease. Sore all over. . 07/26/16. Subdural hematoma. Hyponatremia sodium 127 today. To start fluid restriction yesterday. Patient feeling okay. Patient getting around with walker. . 07/29/16. Subdural hematoma. Hyponatremia is sodium 127 mitral valve replacement INR 3.7. Coronary artery disease. Patient feeling better. . 07/30/16 area Minimal subdural hematoma do to head trauma yesterday. Hyponatremia sodium 131 better. Mitral valve replacement. Coronary artery disease Diagnosis/Problems: Clinical Quality Measures DVT/VTE Risk/Contraindication: Risk Factor Score Per Nursin RFS Level Per Nursing on Admit: 2=Moderate MARCELLA TAMEZ DO Jul 30, 2016 08:16
--- NOTE | 2016-07-30 09:29 | Physical Therapy Daily Note ---
PT Daily Note-Current Subjective Patient sitting EOB pre tx, just got back from the restroom with a PT tech. Patient agrees to PT. Apparently he fell last night or this morning trying to lemon picker something from the floor. Nursing has been asking about his status as far as being independent in his room. Nursing and patient was instructed that patient could go to the bathroom by himself but he has to use the walker. This is stated in a previous progress note. Pain Numeric Pain Scale: 6 Comment: low back Appearance Patient EOB post tx with nurse call, phone, tray, all needs met. Mental Status Patient Orientation: Person, Place, Situation Transfers Functional [place] Measure 0=Not Assessed/NA 4=Minimal Assistance 1=Total Assistance 5=Supervision or Setup 2=Maximal Assistance 6=Modified [place] 3=Moderate Assistance 7=Complete IndependenceIRFPAI Quality Coding Scale 6 Independent with activity with or without an assistive device 5 Patient requires set up or clean up by helper. Patient completes activity by themselves 4 Supervision or touching assist (CGA). [place] provide cues , steadying assist 3 The helper provides less than half the effort to complete the activity 2 The helper provides more than half the effort to complete the activity 1 Dependent. The helper does all the effort to complete an activity 7 Patient refused to complete or attempt activity 9 The patient did not perform the activity before the current illness or injury 88 Not attempted due to Medical conditions or safety concerns Transfers (B, C, W/C) (FIM): 6 Sit to/from Stand: 6 Mod I with transfers using a walker, if he does not use a walker he is SBA Gait Training Gait (FIM): 6 Distance: 600', 150' Gait Assistive Device: FWW No LOB or unsteadiness, one short standing rest break to look outside Stair Training Stair Training: Handrails/: 2 handrails Stairs (FIM): 5 #of Steps: 12 Stairs: Pattern: Step to Level of Assist: 5 cues for foot placement, patient tends to want to step reciprocal but needs to step to. Exercises NuStep Minutes: 15 NuStep Workload: 5 Treatments functional strengthening, stair training, gait training, transfers Assessment Current Status: Fair Progress patient had increasing back pain during tx but was able to complete his morning minutes PT Short Term Goals Short Term Goals Time Frame: Aug 01, 2016 Transfers (B,C,W/C) (FIM): 6 Gait (FIM): 6 Gait Distance Comment: 600' Gait Assistive Device: FWW PT Alf Goals Mva Still Operator Goals PT Mva Still Operator Goals Time Frame: Aug 15, 2016 Transfers (B,C,W/C) (FIM): 6 Sit to Lying (QC): 6 Lying-Sitting on Side/Bed(QC): 6 Sit to Stand (QC): 6 Rollin Roll Left to Right (QC): 6 Chair/Stz-sq-Jzaye Xfer(QC): 6 Car Transfer (QC): 4 Does the Patient Walk: Yes Gait (FIM): 6 Distance: 800' Walk 10 feet (QC): 6 Walk 10ft-Uneven Surface(QC): 6 Walk 50ft with 2 Turns (QC): 6 Walk 150 ft (QC): 6 Gait Assistive Device: Cane Single Point # of Steps: 5 1 Step (curb) (QC): 4 4 Steps (QC): 4 12 Steps (QC): 4 Stairs Level Of Assist: 5 PT Plan Problem List Problem List: Activity Tolerance, Functional Strength, Safety, Balance, Gait, Transfer Treatment/Plan Treatment Plan: Continue Plan of Care Treatment Plan: Bed Mobility, Education, Functional Activity Mckay, Functional Strength, Group Therapy, Gait, Safety, Therapeutic Exercise, Transfers Treatment Duration: Aug 15, 2016 Visits Per Week: 10-11 Minutes/Day (M-F): 60-90 Minutes/Day (Sat/Thakur): 15-30 Safety Risks/Education Patient Education: Gait Training, Transfer Techniques, Steps, Safety Issues Teaching Recipient: Patient Teaching Methods: Demonstration, Discussion Response to Teaching: Reinforcement Needed Time/GCodes Time In: 845 Time Out: 930 Total Billed Treatment Time: 45 Total Billed Treatment 1 visit GT 30 min EX 15 min DAVE VAUGHN PT Jul 30, 2016 09:29
--- NOTE | 2016-07-30 10:46 | PM & R (SOAP) Progress Note ---
Subjective Subjective/Events-last exam Patient was seen in his room this Am C/O nausea but headache improved Neurologically stable,Ct of head repeat shows no further expansion of small left frontal hematoma s/p fall.Discussed case with DR neal and current labs and therapy notes reviewed.Patient Modified Independent fo r mobility but is a fall risk However still needs coumadin due to Valve replacement. Objective Exam Last Set of Vital Signs Vital Signs Date Time Temp Pulse Resp B/P Pulse Ox O2 Delivery O2 Flow Rate FiO2 07/30/16 06:00 98.9 66 18 129/71 93 Room Air Capillary Refill : I&O Intake and Output 07/30/16 00:00 Intake Total 1920 ml Output Total 400 ml Balance 1520 ml Intake Oral 1920 ml Output Urine Total 400 ml # Voids 7 # Bowel Movements 2 General: Alert, Cooperative, No Acute Distress HEENT: Atraumatic, PERRLA, EOMI, Mucous Memb Moist/[place] Neck: Supple, No JVD Lungs: Clear to Auscultation Heart: Regular Rate Abdomen: Normal Bowel Sounds, Soft, No Tenderness Extremities: No Edema Neuro: Other (impaired balance and some memory impairment) Results Lab Laboratory Tests 07/29/16 05:31: Anion Gap 13, BUN/Creatinine Ratio 11, Blood Urea Nitrogen 11, Calcium Level 9.9 , Carbon Dioxide Level 25, Chloride Level 89L, Creatinine 0.97, Estimat Glomerular Filtration Rate > 60, Glucose Level 135H, INR Comment 3.7H, Potassium Level 3.9, Prothrombin Time 36.7H, Sodium Level 127L 07/30/16 05:43: Anion Gap 13, BUN/Creatinine Ratio 13, Blood Urea Nitrogen 11, Calcium Level 10.2H, Carbon Dioxide Level 26, Chloride Level 92L, Creatinine 0.87, Estimat Glomerular Filtration Rate > 60, Glucose Level 115H, INR Comment 3.3H, Potassium Level 3.7, Prothrombin Time 33.5H, Sodium Level 131L Assessment/Plan Assessment Fall with SDH treted medically Chronic hyponatremia Anemia Cardiomyopathy s/p ICD Hx of rercurrent falls Chronic anticoagulation Recurrent fall on unit last evening with small SDH left frontal lobe Plan Continue PT/OT/ST Team Conference [id number] Follow INR for chronic anticoagulation-a bit high at this point F/U with Dr neal PRN Trend Cqycnorfqvpa-yajleqe-ctvpwwwlir stable Repeat CT Head tomorrow.for f/u Discussed case with RN last evening Neuro checks were done thru the night with f /u CT Head early this AM KEVEN MIRELES MD Jul 30, 2016 10:46
--- NOTE | 2016-07-30 10:56 | Occupational Ther Daily Note ---
OT Current Status-Daily Note Subjective Pt alert, sitting up in bed. Pt agreed to therapy. Pt asked for pain medication, nrsg notified and let pt know that it would be a hour before he could have one. Mental Status/Objective Patient Orientation: Person, Place, Time, Situation Functional [place] Measure 0=Not Assessed/NA 4=Minimal Assistance 1=Total Assistance 5=Supervision or Setup 2=Maximal Assistance 6=Modified [place] 3=Moderate Assistance 7=Complete [place] ADL-Treatment Pt is able to go from supine to sit by self using bed rails. Pt is able to transfer for EOB with SBA. Pt worked on tub transfers by stepping into tub using grabbars. Pt demonstrated ability to complete transfer with CGA no LOB noted. OT recommended to pt that he has grabbars at home to complete transfer. Pt stated that he does have tub seat at home. Functional [place] Measure 0=Not Assessed/NA 4=Minimal Assistance 1=Total Assistance 5=Supervision or Setup 2=Maximal Assistance 6=Modified [place] 3=Moderate Assistance 7=Complete IndependenceIRFPAI Quality Coding Scale 6 Independent with activity with or without an assistive device 5 Patient requires set up or clean up by helper. Patient completes activity by themselves 4 Supervision or touching assist (CGA). [place] provide cues , steadying assist 3 The helper provides less than half the effort to complete the activity 2 The helper provides more than half the effort to complete the activity 1 Dependent. The helper does all the effort to complete an activity 7 Patient refused to complete or attempt activity 9 The patient did not perform the activity before the current illness or injury 88 Not attempted due to Medical conditions or safety concerns Other Treatment Pt ambulated to therapy gym with SBA using FWW. Completed arm bike 15 min at 20 martines resistance to increase strength and activity tolerance for daily functional tasks. Pt did not take any breaks and tolerated arm bike well. Pt then completed UE dowel mark exercises with 2# wt attached. Pt ambulated back to room with SBA using FWW to sit on EOB. Pt completed dynamic sitting tasks to work on trunk strengthening and balance for daily functional tasks. Pt was able to complete reaching, grasp and release in a variety of heights, no LOB noted. After therapy, pt sitting EOB with call light/phone in reach. All needs met in room. Nrsg came in to give pt's pain meds at end of therapy. Education OT Patient Education: Transfer techniques Teaching Recipient: Patient Teaching Methods: Demonstration Response to Teaching: Return Demonstration, Reinforcement Needed OT Short Term Goals Short Term Goals Time Frame: Aug 01, 2016 Eating(FIM): 5 Grooming(FIM): 5 Bathing(FIM): 5 Upper Body Dressing(FIM): 5 Lower Body Dressing(FIM): 5 Toileting(FIM): 5 Transfers (B,C,W/C) (FIM): 6 Toilet/Commode Transfer(FIM): 5 Additional Short Term Goals: 1-Demonstrate ADL Tasks, 2-Verbalize Understanding , 3-ImproveStrength/Mckay 1=Demonstrate adherence to instructed precautions during ADL tasks. 2=Patient will verbalize/demonstrate understanding of assistive devices/ modifications for ADL. 3=Patient will improve strength/tolerance for activity to enable patient to perform ADL's. OT Assessment Specialist Goals Assessment Specialist Goals Time Frame: Aug 08, 2016 Eating (FIM): 6 Eating (QC): 6 Oral Hygiene (QC): 5 Grooming(FIM): 6 Bathing(FIM): 5 Shower/Bathe Self (QC): 5 Upper Body Dressing(FIM): 6 Upper Body Dressing (QC): 6 Lower Body Dressing(FIM): 6 Lower Body Dressing (QC): 5 On/Off Footwear (QC): 5 Toileting(FIM): 6 Toileting Hygiene (QC): 6 Transfers (B,C,W/C) (FIM): 6 Toilet/Commode Transfer(FIM): 6 Toilet/Commode Transfer (QC): 6 Shower Transfer(FIM): 5 Additional Goals: 1-Demonstrate ADL Tasks, 2-Verbalize Understanding, 3- ImproveStrength/Mckay 1=Demonstrate adherence to instructed precautions during ADL tasks. 2=Patient will verbalize/demonstrate understanding of assistive devices/ modifications for ADL. 3=Patient will improve strength/tolerance for activity to enable patient to perform ADL's. OT Education/Plan Discharge Recommendations Plan/Recommendations: Continue POC Treatment Plan/Plan of Care Patient would benefit from OT for education, treatment and training to promote independence in ADL's, mobility, safety and/or upper extremity function for ADL' s. Plan of Care: ADL Retraining, Caregiver Training, Cognitive Retraining, Functional Mobility, Group Exercise/Act as Ind, UE Funct Exercise/Act Treatment Duration: Aug 15, 2016 Visits Per Week: 10-11 Minutes/Day (M-F): 60-90 Minutes/Day (Sat/Thakur): 15-30 Agreement: Yes Rehab Potential: Fair Time/GCodes Start Time: 09:30 Stop Time: 11:00 Total Time Billed (hr/min): 90 Billed Treatment Time 1 visit-FA 2 (30 min) EX 4 (60 min) YUNIOR WAGNER Jul 30, 2016 10:56
--- NOTE | 2016-07-30 15:13 | Physical Therapy Daily Note ---
PT Daily Note-Current Subjective Patient in bed pre tx, agrees to PT reluctantly. Nurse senior quality manager states to make sure to turn on his bed alarm when done. Pain Numeric Pain Scale: 6 Comment: low back Appearance Patient in bed post tx with nurse call, phone, tray, bed alarm on, all needs met. Mental Status Patient Orientation: Person, Place, Situation Transfers Functional [place] Measure 0=Not Assessed/NA 4=Minimal Assistance 1=Total Assistance 5=Supervision or Setup 2=Maximal Assistance 6=Modified [place] 3=Moderate Assistance 7=Complete IndependenceIRFPAI Quality Coding Scale 6 Independent with activity with or without an assistive device 5 Patient requires set up or clean up by helper. Patient completes activity by themselves 4 Supervision or touching assist (CGA). [place] provide cues , steadying assist 3 The helper provides less than half the effort to complete the activity 2 The helper provides more than half the effort to complete the activity 1 Dependent. The helper does all the effort to complete an activity 7 Patient refused to complete or attempt activity 9 The patient did not perform the activity before the current illness or injury 88 Not attempted due to Medical conditions or safety concerns Transfers (B, C, W/C) (FIM): 5 Scootin Rollin Supine to/from Sit: 5 Sit to/from Stand: 5 needs cues for safety, will often let go of walker to transfer Gait Training Gait (FIM): 5 Distance: 600'x2 Gait Level of Assist: 5 Gait Persons Needed: 1 Gait Assistive Device: FWW slow ambulation, tends to have walker too far out in front of him Exercises Standing: Hip Abduction, Hamstring curls, Heel/toe raises, Marching, Mini squats Standing Reps: 20 step ups x 10 each side on 6" step. Patient displays poor safety awareness, he actually stepped out of the parallel bars without his walker trying to go across the room to get a Kleenex. Treatments functional strengthening, bed mobility and transfers, ambulation Assessment Current Status: Poor Progress endurance increasing but no recent changes in mobility, displays poor safety, especially after having a fall PT Short Term Goals Short Term Goals Time Frame: Aug 01, 2016 Transfers (B,C,W/C) (FIM): 6 Gait (FIM): 6 Gait Distance Comment: 600' Gait Assistive Device: FWW PT Fdc Goals Fdc Goals PT Masonry Instructor Goals Time Frame: Aug 15, 2016 Transfers (B,C,W/C) (FIM): 6 Sit to Lying (QC): 6 Lying-Sitting on Side/Bed(QC): 6 Sit to Stand (QC): 6 Rollin Roll Left to Right (QC): 6 Chair/Ime-cd-Rxxts Xfer(QC): 6 Car Transfer (QC): 4 Does the Patient Walk: Yes Gait (FIM): 6 Distance: 800' Walk 10 feet (QC): 6 Walk 10ft-Uneven Surface(QC): 6 Walk 50ft with 2 Turns (QC): 6 Walk 150 ft (QC): 6 Gait Assistive Device: Cane Single Point # of Steps: 5 1 Step (curb) (QC): 4 4 Steps (QC): 4 12 Steps (QC): 4 Stairs Level Of Assist: 5 PT Plan Problem List Problem List: Activity Tolerance, Functional Strength, Safety, Balance, Gait, Transfer Treatment/Plan Treatment Plan: Continue Plan of Care Treatment Plan: Bed Mobility, Education, Functional Activity Mckay, Functional Strength, Group Therapy, Gait, Safety, Therapeutic Exercise, Transfers Treatment Duration: Aug 15, 2016 Visits Per Week: 10-11 Minutes/Day (M-F): 60-90 Minutes/Day (Sat/Thakur): 15-30 Safety Risks/Education Patient Education: Gait Training, Transfer Techniques Teaching Recipient: Patient Teaching Methods: Demonstration, Discussion Response to Teaching: Reinforcement Needed Time/GCodes Time In: 1430 Time Out: 1515 Total Billed Treatment Time: 45 Total Billed Treatment 1 visit GT 30 min EX 15 min DAVE VAUGHN PT Jul 30, 2016 15:13
[2016-07-30 18:30] VITALS: BP 124/75
[2016-07-30] MEDS: ATORVASTATIN 40 MG (LIPITOR) TABLET PO SCH (20:26)
[2016-07-31] MEDS: HYDROcodone/APAP 5 MG/325 MG (LORTAB) TAB PO PRN ×4 (05:04→19:29)
[2016-07-31 06:00] VITALS: BP 115/70
[2016-07-31 06:07] LABS: MEAN PLATELET VOLUME 10.5 FL (7.4-10.4); RED BLOOD COUNT 4.46 10^6/uL (4.35-5.85); RED CELL DISTRIBUTION WIDTH 15.2 % (10.0-14.5); WHITE BLOOD COUNT 4.4 10^3/uL (4.3-11.0)
[2016-07-31 06:16] LABS: INR 2.9 (0.8-1.4); PROTHROMBIN TIME PATIENT 30.1 SEC (12.2-14.7)
[2016-07-31 06:20] LABS: ANION GAP 14 MMOL/L (5-14); BLOOD UREA NITROGEN 8 MG/DL (7-18); BUN/CREATININE RATIO 9; CALCIUM 9.9 MG/DL (8.5-10.1); CARBON DIOXIDE 26 MMOL/L (21-32); CHLORIDE 90 MMOL/L (98-107); CREATININE SERUM 0.88 MG/DL (0.60-1.30); GFR ESTIMATED > 60; GLUCOSE 115 MG/DL (70-105); POTASSIUM 3.4 MMOL/L (3.6-5.0); SODIUM 130 MMOL/L (135-145)
[2016-07-31] MEDS: FUROSEMIDE 40 MG (LASIX) TAB PO SCH ×2 (07:01→16:56)
[2016-07-31] MEDS: KCL 20 MEQ TAB (K-DUR) PO SCH (07:01)
[2016-07-31] MEDS: SOTALOL 80 MG (BETAPACE) TAB PO SCH ×2 (08:08→19:30)
[2016-07-31] MEDS: CARVEDILOL 12.5 MG (COREG) TABLET PO SCH ×2 (08:08→19:29)
--- NOTE | 2016-07-31 08:11 | Progress Note (SOAP) ---
Subjective Subjective/Events-last exam subdural hematoma. Patient feeling better today. Neurochecks normal. To have CAT scan of head today for stability of subdural Objective Exam Vital Signs Date Time Temp Pulse Resp B/P Pulse Ox O2 Delivery O2 Flow Rate FiO2 07/31/16 06:00 96.9 70 20 115/70 95 Room Air 07/30/16 18:30 96.7 80 16 124/75 94 07/30/16 11:07 98.9 I & O 07/31/16 07:00 Intake Total 980 ml Balance 980 ml Capillary Refill : General Appearance: No Apparent Distress WD/WN HEENT: Normal ENT Inspection Neck: Normal Inspection Respiratory: Chest Non Tender Lungs Clear Normal Breath Sounds No Accessory Muscle Use No Respiratory Distress Cardiovascular: Regular Rate, Rhythm Gastrointestinal: normal bowel sounds non tender Results Lab Laboratory Tests 07/31/16 05:21: Anion Gap 14, BUN/Creatinine Ratio 9, Blood Urea Nitrogen 8, Calcium Level 9.9, Carbon Dioxide Level 26, Chloride Level 90L, Creatinine 0.88, Estimat Glomerular Filtration Rate > 60, Glucose Level 115H, Hematocrit 36L, Hemoglobin 11.8L, INR Comment 2.9H, Mean Corpuscular Hemoglobin 27, Mean Corpuscular Hemoglobin Concent 33, Mean Corpuscular Volume 80, Mean Platelet Volume 10.5H, Platelet Count 374, Potassium Level 3.4L, Prothrombin Time 30.1H, Red Blood Count 4.46, Red Cell Distribution Width 15.2H, Sodium Level 130L, White Blood Count 4.4 Assessment/Plan Assessment/Plan Assess & Plan/Chief Complaint subdural hematoma. Hyponatremia. Mitral valve replacement. Coronary artery disease. Sore all over. . 07/26/16. Subdural hematoma. Hyponatremia sodium 127 today. To start fluid restriction yesterday. Patient feeling okay. Patient getting around with walker. . 07/29/16. Subdural hematoma. Hyponatremia is sodium 127 mitral valve replacement INR 3.7. Coronary artery disease. Patient feeling better. . 07/30/16 area Minimal subdural hematoma do to head trauma yesterday. Hyponatremia sodium 131 better. Mitral valve replacement. Coronary artery disease. . 05/31/17. Subdural hematoma. Patient stable. Patient feels he is getting better. Patient alert. Patient has new subdural Diagnosis/Problems: Clinical Quality Measures DVT/VTE Risk/Contraindication: Risk Factor Score Per Nursin RFS Level Per Nursing on Admit: 2=Moderate MARCELLA TAMEZ DO Jul 31, 2016 08:11
[2016-07-31] MEDS ORDERED: KCL 10 MEQ TAB (MICRO K) PO NR (08:15)
--- NOTE | 2016-07-31 09:57 | Physical Therapy Daily Note ---
PT Daily Note-Current Subjective Patient in bed pre tx, agrees to PT reluctantly. Pain Numeric Pain Scale: 6 Comment: low back, nurse gave him pain meds Appearance Patient in bed post tx with nurse call, phone, tray, all needs met. Bed alarm on. Mental Status Patient Orientation: Person, Place, Situation Transfers Functional [place] Measure 0=Not Assessed/NA 4=Minimal Assistance 1=Total Assistance 5=Supervision or Setup 2=Maximal Assistance 6=Modified [place] 3=Moderate Assistance 7=Complete IndependenceIRFPAI Quality Coding Scale 6 Independent with activity with or without an assistive device 5 Patient requires set up or clean up by helper. Patient completes activity by themselves 4 Supervision or touching assist (CGA). [place] provide cues , steadying assist 3 The helper provides less than half the effort to complete the activity 2 The helper provides more than half the effort to complete the activity 1 Dependent. The helper does all the effort to complete an activity 7 Patient refused to complete or attempt activity 9 The patient did not perform the activity before the current illness or injury 88 Not attempted due to Medical conditions or safety concerns Transfers (B, C, W/C) (FIM): 5 Scootin Rollin Supine to/from Sit: 6 Sit to/from Stand: 5 cues for safety and hand placement. Patient continues to let go of walker for transfer or if he wants to turn to get something etc. Gait Training Gait (FIM): 5 Distance: 500'x2 Gait Level of Assist: 5 Gait Persons Needed: 1 Gait Assistive Device: FWW Steady ambulation as long as he uses a rolling walker, he does tend to keep the walker too far out in front of him. Exercises Supine Ex: Ankle pumps, Quad Set, Glut sets, Heel Slides Supine Reps: 202 SAQ bilateral alternating for 5 min with 2# ankle weights on. NuStep Minutes: 15 NuStep Workload: 5 Treatments bed mobility and transfers, ambulation, functional strengthening Assessment Current Status: Poor Progress No change in mobility, in fact, patient displays a high disregard for safety precautions and will not follow safety recommendations of therapist or nursing. PT Short Term Goals Short Term Goals Time Frame: Aug 01, 2016 Transfers (B,C,W/C) (FIM): 6 Gait (FIM): 6 Gait Distance Comment: 600' Gait Assistive Device: FWW PT Promotions Intern Goals Promotions Intern Goals PT Skilled Nursing Goals Time Frame: Aug 15, 2016 Transfers (B,C,W/C) (FIM): 6 Sit to Lying (QC): 6 Lying-Sitting on Side/Bed(QC): 6 Sit to Stand (QC): 6 Rollin Roll Left to Right (QC): 6 Chair/Rmj-cu-Xksyv Xfer(QC): 6 Car Transfer (QC): 4 Does the Patient Walk: Yes Gait (FIM): 6 Distance: 800' Walk 10 feet (QC): 6 Walk 10ft-Uneven Surface(QC): 6 Walk 50ft with 2 Turns (QC): 6 Walk 150 ft (QC): 6 Gait Assistive Device: Cane Single Point # of Steps: 5 1 Step (curb) (QC): 4 4 Steps (QC): 4 12 Steps (QC): 4 Stairs Level Of Assist: 5 PT Plan Problem List Problem List: Activity Tolerance, Functional Strength, Safety, Balance, Gait, Transfer Treatment/Plan Treatment Plan: Continue Plan of Care Treatment Plan: Bed Mobility, Education, Functional Activity Mckay, Functional Strength, Group Therapy, Gait, Safety, Therapeutic Exercise, Transfers Treatment Duration: Aug 15, 2016 Visits Per Week: 10-11 Minutes/Day (M-F): 60-90 Minutes/Day (Sat/Thakur): 15-30 Safety Risks/Education Patient Education: Gait Training, Transfer Techniques, Safety Issues Teaching Recipient: Patient Teaching Methods: Demonstration, Discussion Response to Teaching: Reinforcement Needed Time/GCodes Time In: 900 Time Out: 1000 Total Billed Treatment Time: 60 Total Billed Treatment 1 visit EX 30 min GT 30 min DAVE VAUGHN PT Jul 31, 2016 09:57
--- NOTE | 2016-07-31 10:28 | Diagnostic Imaging Report ---
CLINICAL INDICATION: Followup from fall. No complaints. EXAM: An axial CT scan of the brain was performed without IV contrast. COMPARISON: Axial CT scan of the brain performed without IV contrast dated 07/30/2016. FINDINGS: Given the differences in technique, there is no significant change in the size of the small bilateral subdural hematomas, hyperdense on the left and hyperdense/isodense on the right. These subdural hematomas are superimposed upon low-density bilateral subdural fluid collections which demonstrate slightly higher density than CSF and are suspected to represent chronic subdural hematomas. There is no hydrocephalus. There is no intraventricular hemorrhage. The remainder of the brain parenchyma is stable with focal patchy areas of low-attenuation white matter changes, likely representing chronic small vessel ischemic disease. Stable chronic lacunar infarct involving the right basal ganglia region anteriorly. The brain parenchymal volume appears appropriate for the patient's age. The basal cisterns are stable and unremarkable. There is atherosclerotic calcification of the bilateral cavernous carotid arteries and intradural vertebral arteries. The extracranial soft tissue, skull, and orbits are stable and otherwise unremarkable. The paranasal sinuses and temporal bone structures are unremarkable. IMPRESSION: Relatively stable mixed density bilateral subdural hematomas representing acute/subacute on chronic findings. Dictated by: Dictated on workstation # [id number]
--- NOTE | 2016-07-31 11:47 | PM & R (SOAP) Progress Note ---
Subjective Subjective/Events-last exam Patient was seen in his room this AM Feeling better.no headache or nausea no further falls.Appreciate Dr Tena note and orders. Objective Exam Last Set of Vital Signs Vital Signs Date Time Temp Pulse Resp B/P Pulse Ox O2 Delivery O2 Flow Rate FiO2 07/31/16 06:00 96.9 70 20 115/70 95 Room Air Capillary Refill : I&O Intake and Output 07/30/16 23:59 Intake Total 1360 ml Output Total 300 ml Balance 1060 ml Intake Oral 1360 ml Output Urine Total 300 ml # Voids 5 General: Alert, Cooperative, No Acute Distress HEENT: Atraumatic, PERRLA, EOMI, Mucous Memb Moist/[place] Neck: Supple, No JVD Lungs: Clear to Auscultation Heart: Regular Rate Abdomen: Normal Bowel Sounds, Soft, No Tenderness Extremities: No Edema Neuro: Other (impaired balance and some memory impairment) Results Lab Laboratory Tests 07/29/16 05:31: Anion Gap 13, BUN/Creatinine Ratio 11, Blood Urea Nitrogen 11, Calcium Level 9.9 , Carbon Dioxide Level 25, Chloride Level 89L, Creatinine 0.97, Estimat Glomerular Filtration Rate > 60, Glucose Level 135H, INR Comment 3.7H, Potassium Level 3.9, Prothrombin Time 36.7H, Sodium Level 127L 07/30/16 05:43: Anion Gap 13, BUN/Creatinine Ratio 13, Blood Urea Nitrogen 11, Calcium Level 10.2H, Carbon Dioxide Level 26, Chloride Level 92L, Creatinine 0.87, Estimat Glomerular Filtration Rate > 60, Glucose Level 115H, INR Comment 3.3H, Potassium Level 3.7, Prothrombin Time 33.5H, Sodium Level 131L 07/31/16 05:21: Anion Gap 14, BUN/Creatinine Ratio 9, Blood Urea Nitrogen 8, Calcium Level 9.9, Carbon Dioxide Level 26, Chloride Level 90L, Creatinine 0.88, Estimat Glomerular Filtration Rate > 60, Glucose Level 115H, INR Comment 2.9H, Potassium Level 3.4L, Prothrombin Time 30.1H, Sodium Level 130L, Hematocrit 36L , Hemoglobin 11.8L, Mean Corpuscular Hemoglobin 27, Mean Corpuscular Hemoglobin Concent 33, Mean Corpuscular Volume 80, Mean Platelet Volume 10.5H, Platelet Count 374, Red Blood Count 4.46, Red Cell Distribution Width 15.2H, White Blood Count 4.4 Assessment/Plan Assessment Fall with SDH treted medically Chronic hyponatremia Anemia Cardiomyopathy s/p ICD Hx of rercurrent falls Chronic anticoagulation Recurrent fall on unit the evening of 07-29-16 with small SDH left frontal lobe improving with repeat CT Head ordered for today Plan Continue PT/OT/ST Team Conference later today- See report for full functional update and POC and ELOS Follow INR for chronic anticoagulation-a bit high at this point F/U with Dr neal PRN Trend Rlyavimtwtuc-xtvyngv-wijrjjinbj stable Repeat CT Head today.for f/u-See orders KEVEN MIRELES MD Jul 31, 2016 11:47
--- NOTE | 2016-07-31 11:48 | Occupational Ther Daily Note ---
OT Current Status-Daily Note Subjective Pt alert, lying in bed. Pt agreed to therapy. No c/o pain. Very talkative and hard to get motivated to complete therapy. Mental Status/Objective Patient Orientation: Person, Place, Time, Situation Functional [place] Measure 0=Not Assessed/NA 4=Minimal Assistance 1=Total Assistance 5=Supervision or Setup 2=Maximal Assistance 6=Modified [place] 3=Moderate Assistance 7=Complete [place] ADL-Treatment Pt agreed to take shower. Pt ambulated to bathroom with FWW then pushed FWW away from him and ambulated without FWW. OT reminded pt to use walker and pt declined. Pt took increased time to complete shower. After therapy, pt lying in bed with call light/phone in reach. All needs met in room. Functional [place] Measure 0=Not Assessed/NA 4=Minimal Assistance 1=Total Assistance 5=Supervision or Setup 2=Maximal Assistance 6=Modified [place] 3=Moderate Assistance 7=Complete IndependenceIRFPAI Quality Coding Scale 6 Independent with activity with or without an assistive device 5 Patient requires set up or clean up by helper. Patient completes activity by themselves 4 Supervision or touching assist (CGA). [place] provide cues , steadying assist 3 The helper provides less than half the effort to complete the activity 2 The helper provides more than half the effort to complete the activity 1 Dependent. The helper does all the effort to complete an activity 7 Patient refused to complete or attempt activity 9 The patient did not perform the activity before the current illness or injury 88 Not attempted due to Medical conditions or safety concerns Grooming (FIM): 6 Bathing (FIM): 6 (Using grabbar, hand held shower and shower bench.) Upper Body (FIM): 5 Lower Body Dressing (FIM): 5 Toileting (FIM): 6 (Using grabbars) Transfers (B, C, W/C) (FIM): 6 (Using FWW though pt is not consistent keeping FWW with him) Toilet/Commode Transfer (FIM): 6 (Using FWW and grabbars) Shower Transfer(FIM): 6 (Using shower bench and grabbars.) OT Short Term Goals Short Term Goals Time Frame: Aug 01, 2016 Eating(FIM): 5 Grooming(FIM): 5 Bathing(FIM): 5 Upper Body Dressing(FIM): 5 Lower Body Dressing(FIM): 5 Toileting(FIM): 5 Transfers (B,C,W/C) (FIM): 6 Toilet/Commode Transfer(FIM): 5 Additional Short Term Goals: 1-Demonstrate ADL Tasks, 2-Verbalize Understanding , 3-ImproveStrength/Mckay 1=Demonstrate adherence to instructed precautions during ADL tasks. 2=Patient will verbalize/demonstrate understanding of assistive devices/ modifications for ADL. 3=Patient will improve strength/tolerance for activity to enable patient to perform ADL's. OT Senior Living Goals Senior Living Goals Time Frame: Aug 08, 2016 Eating (FIM): 6 Eating (QC): 6 Oral Hygiene (QC): 5 Grooming(FIM): 6 Bathing(FIM): 5 Shower/Bathe Self (QC): 5 Upper Body Dressing(FIM): 6 Upper Body Dressing (QC): 6 Lower Body Dressing(FIM): 6 Lower Body Dressing (QC): 5 On/Off Footwear (QC): 5 Toileting(FIM): 6 Toileting Hygiene (QC): 6 Transfers (B,C,W/C) (FIM): 6 Toilet/Commode Transfer(FIM): 6 Toilet/Commode Transfer (QC): 6 Shower Transfer(FIM): 5 Additional Goals: 1-Demonstrate ADL Tasks, 2-Verbalize Understanding, 3- ImproveStrength/Mckay 1=Demonstrate adherence to instructed precautions during ADL tasks. 2=Patient will verbalize/demonstrate understanding of assistive devices/ modifications for ADL. 3=Patient will improve strength/tolerance for activity to enable patient to perform ADL's. OT Education/Plan Discharge Recommendations Plan/Recommendations: Continue POC Treatment Plan/Plan of Care Patient would benefit from OT for education, treatment and training to promote independence in ADL's, mobility, safety and/or upper extremity function for ADL' s. Plan of Care: ADL Retraining, Caregiver Training, Cognitive Retraining, Functional Mobility, Group Exercise/Act as Ind, UE Funct Exercise/Act Treatment Duration: Aug 15, 2016 Visits Per Week: 10-11 Minutes/Day (M-F): 60-90 Minutes/Day (Sat/Thakur): 15-30 Agreement: Yes Rehab Potential: Fair Time/GCodes Start Time: 10:30 Stop Time: 12:00 Total Time Billed (hr/min): 90 Billed Treatment Time 1 visit-ADL 6 (90 min) YUNIOR WAGNER Jul 31, 2016 11:48
--- NOTE | 2016-07-31 16:15 | Physical Therapy Daily Note ---
PT Daily Note-Current Subjective Pt sitting up in bed upon arrival. Pt reluctantly agreed to PT. Pain Numeric Pain Scale: 5-Moderate Pain Location: Anterior Location Body Site: Head Pain Description: Pressure Mental Status Patient Orientation: Person, Place, Situation Transfers Functional Patrick Measure 0=Not Assessed/NA 4=Minimal Assistance 1=Total Assistance 5=Supervision or Setup 2=Maximal Assistance 6=Modified Patrick 3=Moderate Assistance 7=Complete IndependenceIRFPAI Quality Coding Scale 6 Independent with activity with or without an assistive device 5 Patient requires set up or clean up by helper. Patient completes activity by themselves 4 Supervision or touching assist (CGA). Sarita provide cues , steadying assist 3 The helper provides less than half the effort to complete the activity 2 The helper provides more than half the effort to complete the activity 1 Dependent. The helper does all the effort to complete an activity 7 Patient refused to complete or attempt activity 9 The patient did not perform the activity before the current illness or injury 88 Not attempted due to Medical conditions or safety concerns Scootin Rollin Supine to/from Sit: 5 Sit to/from Stand: 5 Weight Bearing Weight Bearing Restriction: Full Weight Bearing Location Restriction: LE Bilateral Gait Training Does the Patient Walk?: Yes Distance (FIM): 1=up to 49 ft Distance: 40' Gait Level of Assist: 5 Gait Persons Needed: 1 Gait Assistive Device: FWW Pt's gait is slow but steady with no LOB. Exercises Supine Ex: Ankle pumps, Quad Set, Glut sets, Heel Slides, Short Arc Quads, Straight leg raise, Hip abd/add Supine Reps: 15 Treatments Pt transferred from sitting in bed to standing suing FWW at [facility]. Pt ambulated approx. 20' using FWW at [facility] before PT noticed the mat in Therapy Gym to be used for supine EX was already in use so pt returned to room to use pt's bed with head of bed lowered so pt could complete supine EX. Pt was able to complete EX but by the end pt reported headache coming on quickly in forehead. PT slowly raised head of bed to see if headache subsided due to pt's low BP issue. Pt did report headache slowly faded in a few minutes after head was raised. This was reported to nursing as well. Pt was left with all needs met at end of tx. Assessment Current Status: Good Progress Pt is more independent with transfers and ambulation as well as EX but still watching low BP to see what caused headache. PT Short Term Goals Short Term Goals Time Frame: Aug 01, 2016 Transfers (B,C,W/C) (FIM): 6 Gait (FIM): 6 Gait Distance Comment: 600' Gait Assistive Device: FWW PT Fdc Goals Sr. Pricing Analyst Goals PT Fdc Goals Time Frame: Aug 15, 2016 Transfers (B,C,W/C) (FIM): 6 Sit to Lying (QC): 6 Lying-Sitting on Side/Bed(QC): 6 Sit to Stand (QC): 6 Rollin Roll Left to Right (QC): 6 Chair/Uwe-ts-Eodlz Xfer(QC): 6 Car Transfer (QC): 4 Does the Patient Walk: Yes Gait (FIM): 6 Distance: 800' Walk 10 feet (QC): 6 Walk 10ft-Uneven Surface(QC): 6 Walk 50ft with 2 Turns (QC): 6 Walk 150 ft (QC): 6 Gait Assistive Device: Cane Single Point # of Steps: 5 1 Step (curb) (QC): 4 4 Steps (QC): 4 12 Steps (QC): 4 Stairs Level Of Assist: 5 PT Plan Problem List Problem List: Activity Tolerance, Safety, Balance, Gait Treatment/Plan Treatment Plan: Continue Plan of Care Treatment Plan: Bed Mobility, Education, Functional Activity Mckay, Functional Strength, Group Therapy, Gait, Safety, Therapeutic Exercise, Transfers Treatment Duration: Aug 15, 2016 Visits Per Week: 10-11 Minutes/Day (M-F): 60-90 Minutes/Day (Sat/Thakur): 15-30 Safety Risks/Education Patient Education: Gait Training, Transfer Techniques, Correct Positioning, Safety Issues Teaching Recipient: Patient Teaching Methods: Discussion Response to Teaching: Verbalize Understanding Time/GCodes Time In: 1530 Time Out: 1600 Total Billed Treatment Time: 30 Total Billed Treatment visit, FA (10m) & EX (20m) JUAN MANUEL PAIGE PTA Jul 31, 2016 16:14
[2016-07-31 18:00] VITALS: BP 117/66
[2016-07-31] MEDS: ATORVASTATIN 40 MG (LIPITOR) TABLET PO SCH (19:29)
[2016-08-01] MEDS: HYDROcodone/APAP 5 MG/325 MG (LORTAB) TAB PO PRN ×3 (05:45→20:34)
[2016-08-01] MEDS: FUROSEMIDE 40 MG (LASIX) TAB PO SCH ×2 (05:45→17:10)
[2016-08-01] MEDS: KCL 20 MEQ TAB (K-DUR) PO SCH (05:45)
[2016-08-01 06:00] VITALS: BP 124/72
[2016-08-01 06:15] LABS: MEAN PLATELET VOLUME 10.1 FL (7.4-10.4); RED BLOOD COUNT 4.31 10^6/uL (4.35-5.85); WHITE BLOOD COUNT 5.1 10^3/uL (4.3-11.0)
[2016-08-01 06:26] LABS: INR 2.6 (0.8-1.4); PROTHROMBIN TIME PATIENT 27.3 SEC (12.2-14.7)
[2016-08-01 06:36] LABS: ANION GAP 13 MMOL/L (5-14); BLOOD UREA NITROGEN 7 MG/DL (7-18); BUN/CREATININE RATIO 8; CALCIUM 9.5 MG/DL (8.5-10.1); CARBON DIOXIDE 27 MMOL/L (21-32); CHLORIDE 90 MMOL/L (98-107); CREATININE SERUM 0.86 MG/DL (0.60-1.30); GFR ESTIMATED > 60; GLUCOSE 106 MG/DL (70-105); POTASSIUM 3.6 MMOL/L (3.6-5.0); SODIUM 130 MMOL/L (135-145)
--- NOTE | 2016-08-01 08:28 | Progress Note (SOAP) ---
Subjective Subjective/Events-last exam acute and chronic subdural hematoma. Hyponatremia stable at 130. Patient feeling good this morning Patient using walker today. INR 2.6 Objective Exam Vital Signs Date Time Temp Pulse Resp B/P Pulse Ox O2 Delivery O2 Flow Rate FiO2 08/01/16 06:00 98.2 65 20 124/72 97 Room Air 07/31/16 18:00 97.8 70 18 117/66 95 Room Air 07/31/16 16:00 96.9 I & O 08/01/16 07:00 Intake Total 1200 ml Balance 1200 ml Capillary Refill : General Appearance: No Apparent Distress WD/WN HEENT: Normal ENT Inspection Neck: Normal Inspection Respiratory: Chest Non Tender Lungs Clear Normal Breath Sounds No Accessory Muscle Use No Respiratory Distress Cardiovascular: Regular Rate, Rhythm Results Lab Laboratory Tests 08/01/16 05:48 Laboratory Tests 08/01/16 05:48: Anion Gap 13, BUN/Creatinine Ratio 8, Blood Urea Nitrogen 7, Calcium Level 9.5, Carbon Dioxide Level 27, Chloride Level 90L, Creatinine 0.86, Estimat Glomerular Filtration Rate > 60, Glucose Level 106H, Hematocrit 35L, Hemoglobin 11.4L, INR Comment 2.6H, Mean Corpuscular Hemoglobin 27, Mean Corpuscular Hemoglobin Concent 33, Mean Corpuscular Volume 80, Mean Platelet Volume 10.1, Platelet Count 312, Potassium Level 3.6, Prothrombin Time 27.3H, Red Blood Count 4.31L, Red Cell Distribution Width 15.0H, Sodium Level 130L, White Blood Count 5.1 Assessment/Plan Assessment/Plan Assess & Plan/Chief Complaint subdural hematoma. Hyponatremia. Mitral valve replacement. Coronary artery disease. Sore all over. . 07/26/16. Subdural hematoma. Hyponatremia sodium 127 today. To start fluid restriction yesterday. Patient feeling okay. Patient getting around with walker. . 07/29/16. Subdural hematoma. Hyponatremia is sodium 127 mitral valve replacement INR 3.7. Coronary artery disease. Patient feeling better. . 07/30/16 area Minimal subdural hematoma do to head trauma yesterday. Hyponatremia sodium 131 better. Mitral valve replacement. Coronary artery disease. . 05/31/17. Subdural hematoma. Patient stable. Patient feels he is getting better. Patient alert. Patient has new subdural. . Stable and acute subdural hematoma. Hyponatremia sodium 130 area INR 2.6 good. Patient getting around with a walker today Diagnosis/Problems: Clinical Quality Measures DVT/VTE Risk/Contraindication: Risk Factor Score Per Nursin RFS Level Per Nursing on Admit: 2=Moderate MARCELLA TAMEZ DO Aug 01, 2016 08:28
[2016-08-01] MEDS: SOTALOL 80 MG (BETAPACE) TAB PO SCH ×2 (09:15→20:34)
[2016-08-01] MEDS: CARVEDILOL 12.5 MG (COREG) TABLET PO SCH ×2 (09:15→20:34)
--- NOTE | 2016-08-01 09:15 | PM & R (SOAP) Progress Note ---
Subjective Subjective/Events-last exam Patient was seen in his room this AM Patient SBA for transfers and gait Discussed case with Dr Leonardo PCP Objective Exam Last Set of Vital Signs Vital Signs Date Time Temp Pulse Resp B/P Pulse Ox O2 Delivery O2 Flow Rate FiO2 08/01/16 06:00 98.2 65 20 124/72 97 Room Air Capillary Refill : I&O Intake and Output 08/01/16 00:00 Intake Total 1140 ml Balance 1140 ml Intake Oral 1140 ml # Voids 7 # Bowel Movements 1 General: Alert, Cooperative, No Acute Distress HEENT: Atraumatic, PERRLA, EOMI, Mucous Memb Moist/Lutz Neck: Supple, No JVD Lungs: Clear to Auscultation Heart: Regular Rate Abdomen: Normal Bowel Sounds, Soft, No Tenderness Extremities: No Edema Neuro: Other (impaired balance and some memory impairment) Results Lab Laboratory Tests 07/30/16 05:43: Anion Gap 13, BUN/Creatinine Ratio 13, Blood Urea Nitrogen 11, Calcium Level 10.2H, Carbon Dioxide Level 26, Chloride Level 92L, Creatinine 0.87, Estimat Glomerular Filtration Rate > 60, Glucose Level 115H, INR Comment 3.3H, Potassium Level 3.7, Prothrombin Time 33.5H, Sodium Level 131L 07/31/16 05:21: Anion Gap 14, BUN/Creatinine Ratio 9, Blood Urea Nitrogen 8, Calcium Level 9.9, Carbon Dioxide Level 26, Chloride Level 90L, Creatinine 0.88, Estimat Glomerular Filtration Rate > 60, Glucose Level 115H, INR Comment 2.9H, Potassium Level 3.4L, Prothrombin Time 30.1H, Sodium Level 130L, Hematocrit 36L , Hemoglobin 11.8L, Mean Corpuscular Hemoglobin 27, Mean Corpuscular Hemoglobin Concent 33, Mean Corpuscular Volume 80, Mean Platelet Volume 10.5H, Platelet Count 374, Red Blood Count 4.46, Red Cell Distribution Width 15.2H, White Blood Count 4.4 08/01/16 05:48: Anion Gap 13, BUN/Creatinine Ratio 8, Blood Urea Nitrogen 7, Calcium Level 9.5, Carbon Dioxide Level 27, Chloride Level 90L, Creatinine 0.86, Estimat Glomerular Filtration Rate > 60, Glucose Level 106H, INR Comment 2.6H, Potassium Level 3.6, Prothrombin Time 27.3H, Sodium Level 130L, Hematocrit 35L, Hemoglobin 11.4L, Mean Corpuscular Hemoglobin 27, Mean Corpuscular Hemoglobin Concent 33, Mean Corpuscular Volume 80, Mean Platelet Volume 10.1, Platelet Count 312, Red Blood Count 4.31L, Red Cell Distribution Width 15.0H, White Blood Count 5.1 Assessment/Plan Assessment Fall with SDH treted medically Chronic hyponatremia Anemia Cardiomyopathy s/p ICD Hx of rercurrent falls Chronic anticoagulation Recurrent fall on unit the evening of 07-29-16 with small SDH left frontal lobe improving with repeat CT Head ordered for today Plan Continue PT/OT/ST Team Conference held yesterday- See report for full functional update and POC and ELOS Follow INR for chronic anticoagulation-a bit high at this point F/U with Dr leonardo PRSarkis Trend [id number] stable Repeat CT Head done yesterday.for f/u-OK Discharge tentatively set for next Friday the - f/u with re details KEVEN MIRELES MD Aug 01, 2016 09:15
--- NOTE | 2016-08-01 10:09 | Physical Therapy Daily Note ---
PT Daily Note-Current Subjective Agreeable to PT. Mental Status Patient Orientation: Person, Place, Time, Situation Transfers Functional Boyle Measure 0=Not Assessed/NA 4=Minimal Assistance 1=Total Assistance 5=Supervision or Setup 2=Maximal Assistance 6=Modified [place] 3=Moderate Assistance 7=Complete IndependenceIRFPAI Quality Coding Scale 6 Independent with activity with or without an assistive device 5 Patient requires set up or clean up by helper. Patient completes activity by themselves 4 Supervision or touching assist (CGA). [place] provide cues , steadying assist 3 The helper provides less than half the effort to complete the activity 2 The helper provides more than half the effort to complete the activity 1 Dependent. The helper does all the effort to complete an activity 7 Patient refused to complete or attempt activity 9 The patient did not perform the activity before the current illness or injury 88 Not attempted due to Medical conditions or safety concerns Transfers (B, C, W/C) (FIM): 5 Sit to/from Stand: 5 multiple sit to stand transfers throughout treatment, all with SBA and correct placement and sequencing of hands. Gait Training Does the Patient Walk?: Yes Gait (FIM): 5 Distance (FIM): 3=150 ft Distance: 150 ft x 2; 300 ft x 1 Walk 10 feet (QC): 5 Walk 50 ft with 2 Turns(QC): 5 Walk 150 ft (QC): 5 Walking 10ft on uneven surface: 5 Gait Assistive Device: FWW Gait with FWW with SBA for all; pt completed an obstacle course 2 reps that included weaving, turning, curb step, uneven surface. Stair Training Stair Training: Handrails/: 2 handrails Stairs (FIM): 5 #of Steps: 8 1 Step (curb) (QC): 5 4 Steps (QC): 5 SBA on stairs for safety purposes Exercises Standing: Hip Abduction, Hamstring curls, Heel/toe raises, Marching, Mini squats Standing Reps: 15 (ther ex completed to increase LE strength for functional mobility and safety) Neuromuscular Obstacle course x 15 minuets Assessment Current Status: Good Progress Safe with functional transfers and gait. Pt wants to push walker and carry his coffee at the same time, which is not safe and he was educated on this. PT Short Term Goals Short Term Goals Time Frame: Aug 01, 2016 Transfers (B,C,W/C) (FIM): 6 Gait (FIM): 6 Gait Distance Comment: 600' Gait Assistive Device: FWW PT Cytogenetics Laboratory Manager Goals Senior Living Goals PT Senior Living Goals Time Frame: Aug 15, 2016 Transfers (B,C,W/C) (FIM): 6 Sit to Lying (QC): 6 Lying-Sitting on Side/Bed(QC): 6 Sit to Stand (QC): 6 Rollin Roll Left to Right (QC): 6 Chair/Lpg-es-Nigis Xfer(QC): 6 Car Transfer (QC): 4 Does the Patient Walk: Yes Gait (FIM): 6 Distance: 800' Walk 10 feet (QC): 6 Walk 10ft-Uneven Surface(QC): 6 Walk 50ft with 2 Turns (QC): 6 Walk 150 ft (QC): 6 Gait Assistive Device: Cane Single Point # of Steps: 5 1 Step (curb) (QC): 4 4 Steps (QC): 4 12 Steps (QC): 4 Stairs Level Of Assist: 5 PT Plan Problem List Problem List: Activity Tolerance, Functional Strength, Safety, Balance, Gait, Transfer Treatment/Plan Treatment Plan: Continue Plan of Care Treatment Plan: Bed Mobility, Education, Functional Activity Mckay, Functional Strength, Group Therapy, Gait, Safety, Therapeutic Exercise, Transfers Treatment Duration: Aug 15, 2016 Visits Per Week: 10-11 Minutes/Day (M-F): 60-90 Minutes/Day (Sat/Thakur): 15-30 Safety Risks/Education Patient Education: Safety Issues Teaching Recipient: Patient Teaching Methods: Discussion Response to Teaching: Reinforcement Needed Needs safety cues as he tends to push the limits on safety issues. Complies when corrected. Time/GCodes Time In: 900 Time Out: 1000 Total Billed Treatment Time: 60 Total Billed Treatment visit GT 15 NM 15 EX 15 FA 15 YUNIOR SETH PT Aug 01, 2016 10:09
--- NOTE | 2016-08-01 10:32 | Occupational Ther Daily Note ---
OT Current Status-Daily Note Subjective Pt just woke up, lying in bed. Pt required encouragement to work with OT. Pt took increased time to get started today. No c/o pain at this time. Mental Status/Objective Patient Orientation: Person, Place, Time, Situation Functional Jack Measure 0=Not Assessed/NA 4=Minimal Assistance 1=Total Assistance 5=Supervision or Setup 2=Maximal Assistance 6=Modified Jack 3=Moderate Assistance 7=Complete Jack ADL-Treatment Functional Jack Measure 0=Not Assessed/NA 4=Minimal Assistance 1=Total Assistance 5=Supervision or Setup 2=Maximal Assistance 6=Modified Jack 3=Moderate Assistance 7=Complete IndependenceIRFPAI Quality Coding Scale 6 Independent with activity with or without an assistive device 5 Patient requires set up or clean up by helper. Patient completes activity by themselves 4 Supervision or touching assist (CGA). [place] provide cues , steadying assist 3 The helper provides less than half the effort to complete the activity 2 The helper provides more than half the effort to complete the activity 1 Dependent. The helper does all the effort to complete an activity 7 Patient refused to complete or attempt activity 9 The patient did not perform the activity before the current illness or injury 88 Not attempted due to Medical conditions or safety concerns Toileting (FIM): 6 (Using grabbars, pt is able to complete own toileting.) Toilet/Commode Transfer (FIM): 6 (Using FWW and grabbars, pt is able to transfer by self.) Pt able to open small packages of sugar and creamer to fix own coffee. Other Treatment Pt ambulated to arm bike 15 min duration at 20 martines resistance to increase strength and activity tolerance for daily functional tasks. Pt then completed resistive clothespins with each hand 1x. Pt took increased time with clothespins while making sure they were in alignment and was positioned in the same groove when placed. After therapy, pt in therapy gym with physical therapy manager. All needs met in room. OT Short Term Goals Short Term Goals Time Frame: Aug 01, 2016 Eating(FIM): 5 Grooming(FIM): 5 Bathing(FIM): 5 Upper Body Dressing(FIM): 5 Lower Body Dressing(FIM): 5 Toileting(FIM): 5 Transfers (B,C,W/C) (FIM): 6 Toilet/Commode Transfer(FIM): 5 Additional Short Term Goals: 1-Demonstrate ADL Tasks, 2-Verbalize Understanding , 3-ImproveStrength/Mckay 1=Demonstrate adherence to instructed precautions during ADL tasks. 2=Patient will verbalize/demonstrate understanding of assistive devices/ modifications for ADL. 3=Patient will improve strength/tolerance for activity to enable patient to perform ADL's. OT Usp Goals Director Of Residential Services Goals Time Frame: Aug 08, 2016 Eating (FIM): 6 Eating (QC): 6 Oral Hygiene (QC): 5 Grooming(FIM): 6 Bathing(FIM): 5 Shower/Bathe Self (QC): 5 Upper Body Dressing(FIM): 6 Upper Body Dressing (QC): 6 Lower Body Dressing(FIM): 6 Lower Body Dressing (QC): 5 On/Off Footwear (QC): 5 Toileting(FIM): 6 Toileting Hygiene (QC): 6 Transfers (B,C,W/C) (FIM): 6 Toilet/Commode Transfer(FIM): 6 Toilet/Commode Transfer (QC): 6 Shower Transfer(FIM): 5 Additional Goals: 1-Demonstrate ADL Tasks, 2-Verbalize Understanding, 3- ImproveStrength/Mckay 1=Demonstrate adherence to instructed precautions during ADL tasks. 2=Patient will verbalize/demonstrate understanding of assistive devices/ modifications for ADL. 3=Patient will improve strength/tolerance for activity to enable patient to perform ADL's. OT Education/Plan Discharge Recommendations Plan/Recommendations: Continue POC Treatment Plan/Plan of Care Patient would benefit from OT for education, treatment and training to promote independence in ADL's, mobility, safety and/or upper extremity function for ADL' s. Plan of Care: ADL Retraining, Caregiver Training, Cognitive Retraining, Functional Mobility, Group Exercise/Act as Ind, UE Funct Exercise/Act Treatment Duration: Aug 15, 2016 Visits Per Week: 10-11 Minutes/Day (M-F): 60-90 Minutes/Day (Sat/Thakur): 15-30 Agreement: Yes Rehab Potential: Fair Time/GCodes Start Time: 08:00 Stop Time: 09:00 Total Time Billed (hr/min): 60 Billed Treatment Time 1 visit-FA 2 (30 min) EX 2 (30 min) YUNIOR WAGNER Aug 01, 2016 10:32
--- NOTE | 2016-08-01 11:29 | Occupational Ther Daily Note ---
OT Current Status-Daily Note Subjective Pt alert, lying in bed. Pt agreed to therapy. Pt required encouragement to participate in therapy. Pt did not c/o pain at this time. Mental Status/Objective Patient Orientation: Person, Place, Time, Situation Functional Felt Measure 0=Not Assessed/NA 4=Minimal Assistance 1=Total Assistance 5=Supervision or Setup 2=Maximal Assistance 6=Modified Felt 3=Moderate Assistance 7=Complete Felt ADL-Treatment Functional Felt Measure 0=Not Assessed/NA 4=Minimal Assistance 1=Total Assistance 5=Supervision or Setup 2=Maximal Assistance 6=Modified Felt 3=Moderate Assistance 7=Complete IndependenceIRFPAI Quality Coding Scale 6 Independent with activity with or without an assistive device 5 Patient requires set up or clean up by helper. Patient completes activity by themselves 4 Supervision or touching assist (CGA). [place] provide cues , steadying assist 3 The helper provides less than half the effort to complete the activity 2 The helper provides more than half the effort to complete the activity 1 Dependent. The helper does all the effort to complete an activity 7 Patient refused to complete or attempt activity 9 The patient did not perform the activity before the current illness or injury 88 Not attempted due to Medical conditions or safety concerns Other Treatment Pt was able to go from supine to sitting EOB, mod I. Then completed dynamic standing activity to work on balance during functional tasks. Pt was able to stand, grasp then release to throw object to designated area 10' away. Then pt retrieved objects with close SBA from floor. 2 LOB noted during retrieval of objects. Pt required 2 rest breaks during tasks. After therapy, pt lying in bed with call light/phone in reach. All needs met in room. OT Short Term Goals Short Term Goals Time Frame: Aug 01, 2016 Eating(FIM): 5 Grooming(FIM): 5 Bathing(FIM): 5 Upper Body Dressing(FIM): 5 Lower Body Dressing(FIM): 5 Toileting(FIM): 5 Transfers (B,C,W/C) (FIM): 6 Toilet/Commode Transfer(FIM): 5 Additional Short Term Goals: 1-Demonstrate ADL Tasks, 2-Verbalize Understanding , 3-ImproveStrength/Mckay 1=Demonstrate adherence to instructed precautions during ADL tasks. 2=Patient will verbalize/demonstrate understanding of assistive devices/ modifications for ADL. 3=Patient will improve strength/tolerance for activity to enable patient to perform ADL's. OT Marketing Summer Intern Goals Marketing Summer Intern Goals Time Frame: Aug 08, 2016 Eating (FIM): 6 Eating (QC): 6 Oral Hygiene (QC): 5 Grooming(FIM): 6 Bathing(FIM): 5 Shower/Bathe Self (QC): 5 Upper Body Dressing(FIM): 6 Upper Body Dressing (QC): 6 Lower Body Dressing(FIM): 6 Lower Body Dressing (QC): 5 On/Off Footwear (QC): 5 Toileting(FIM): 6 Toileting Hygiene (QC): 6 Transfers (B,C,W/C) (FIM): 6 Toilet/Commode Transfer(FIM): 6 Toilet/Commode Transfer (QC): 6 Shower Transfer(FIM): 5 Additional Goals: 1-Demonstrate ADL Tasks, 2-Verbalize Understanding, 3- ImproveStrength/Mckay 1=Demonstrate adherence to instructed precautions during ADL tasks. 2=Patient will verbalize/demonstrate understanding of assistive devices/ modifications for ADL. 3=Patient will improve strength/tolerance for activity to enable patient to perform ADL's. OT Education/Plan Discharge Recommendations Plan/Recommendations: Continue POC Treatment Plan/Plan of Care Patient would benefit from OT for education, treatment and training to promote independence in ADL's, mobility, safety and/or upper extremity function for ADL' s. Plan of Care: ADL Retraining, Caregiver Training, Cognitive Retraining, Functional Mobility, Group Exercise/Act as Ind, UE Funct Exercise/Act Treatment Duration: Aug 15, 2016 Visits Per Week: 10-11 Minutes/Day (M-F): 60-90 Minutes/Day (Sat/Thakur): 15-30 Agreement: Yes Rehab Potential: Fair Time/GCodes Start Time: 11:00 Stop Time: 11:30 Total Time Billed (hr/min): 30 Billed Treatment Time 1 visit-FA 2 (30 min) YUNIOR WAGNER Aug 01, 2016 11:29
--- NOTE | 2016-08-01 13:50 | Physical Therapy Daily Note ---
PT Daily Note-Current Subjective agreeable. Transfers Functional [place] Measure 0=Not Assessed/NA 4=Minimal Assistance 1=Total Assistance 5=Supervision or Setup 2=Maximal Assistance 6=Modified [place] 3=Moderate Assistance 7=Complete IndependenceIRFPAI Quality Coding Scale 6 Independent with activity with or without an assistive device 5 Patient requires set up or clean up by helper. Patient completes activity by themselves 4 Supervision or touching assist (CGA). [place] provide cues , steadying assist 3 The helper provides less than half the effort to complete the activity 2 The helper provides more than half the effort to complete the activity 1 Dependent. The helper does all the effort to complete an activity 7 Patient refused to complete or attempt activity 9 The patient did not perform the activity before the current illness or injury 88 Not attempted due to Medical conditions or safety concerns Transfers (B, C, W/C) (FIM): 5 Roll Left to Right (QC): 5 Supine to/from Sit: 5 Sit to Stand (QC): 5 Gait Training Gait (FIM): 5 Distance: 150 ft x 2 Gait Assistive Device: FWW Exercises NuStep Minutes: 15 Treatments Pt ambulated to from the toilet and stood to urinate with SBA; stood at sink to wash hands with SBA. SBA indicated for safety purposes and risk of falling. Pt in bed post treatment with bed alarm activated. Assessment Current Status: Good Progress Progressing with functional mobility. PT Short Term Goals Short Term Goals Time Frame: Aug 01, 2016 Transfers (B,C,W/C) (FIM): 6 Gait (FIM): 6 Gait Distance Comment: 600' Gait Assistive Device: FWW PT Professor Of Historical Theology Goals Professor Of Historical Theology Goals PT Professor Of Historical Theology Goals Time Frame: Aug 15, 2016 Transfers (B,C,W/C) (FIM): 6 Sit to Lying (QC): 6 Lying-Sitting on Side/Bed(QC): 6 Sit to Stand (QC): 6 Rollin Roll Left to Right (QC): 6 Chair/Vix-zj-Dswuw Xfer(QC): 6 Car Transfer (QC): 4 Does the Patient Walk: Yes Gait (FIM): 6 Distance: 800' Walk 10 feet (QC): 6 Walk 10ft-Uneven Surface(QC): 6 Walk 50ft with 2 Turns (QC): 6 Walk 150 ft (QC): 6 Gait Assistive Device: Cane Single Point # of Steps: 5 1 Step (curb) (QC): 4 4 Steps (QC): 4 12 Steps (QC): 4 Stairs Level Of Assist: 5 PT Plan Problem List Problem List: Activity Tolerance, Functional Strength, Safety Treatment/Plan Treatment Plan: Continue Plan of Care Treatment Plan: Bed Mobility, Education, Functional Activity Mckay, Functional Strength, Group Therapy, Gait, Safety, Therapeutic Exercise, Transfers Treatment Duration: Aug 15, 2016 Visits Per Week: 10-11 Minutes/Day (M-F): 60-90 Minutes/Day (Sat/Thakur): 15-30 Time/GCodes Time In: 1315 Time Out: 1345 Total Billed Treatment Time: 30 Total Billed Treatment visist GT 15 EX 15 YUNIOR SETH PT Aug 01, 2016 13:50
[2016-08-01 18:24] VITALS: BP 129/76
[2016-08-01] MEDS: ATORVASTATIN 40 MG (LIPITOR) TABLET PO SCH (20:34)
[2016-08-02] MEDS: HYDROcodone/APAP 5 MG/325 MG (LORTAB) TAB PO PRN ×4 (04:54→21:35)
[2016-08-02 05:47] VITALS: BP 126/77
[2016-08-02] MEDS: FUROSEMIDE 40 MG (LASIX) TAB PO SCH ×2 (05:57→17:19)
[2016-08-02] MEDS: KCL 20 MEQ TAB (K-DUR) PO SCH (05:57)
[2016-08-02 06:07] LABS: INR 1.5 (0.8-1.4)
[2016-08-02 06:16] LABS: ANION GAP 15 MMOL/L (5-14); BLOOD UREA NITROGEN 6 MG/DL (7-18); BUN/CREATININE RATIO 7; CALCIUM 9.3 MG/DL (8.5-10.1); CARBON DIOXIDE 25 MMOL/L (21-32); CHLORIDE 88 MMOL/L (98-107); CREATININE SERUM 0.81 MG/DL (0.60-1.30); GFR ESTIMATED > 60; GLUCOSE 111 MG/DL (70-105); POTASSIUM 3.5 MMOL/L (3.6-5.0); SODIUM 128 MMOL/L (135-145)
--- NOTE | 2016-08-02 08:02 | Progress Note (SOAP) ---
Subjective Subjective/Events-last exam subdural hematoma area Patient feeling better area Patient be discharged this Friday or Friday and go to [place] Objective Exam Vital Signs Date Time Temp Pulse Resp B/P Pulse Ox O2 Delivery O2 Flow Rate FiO2 08/02/16 05:47 98.4 70 16 126/77 97 Room Air 08/01/16 18:24 97.8 69 14 129/76 97 08/01/16 09:00 Room Air I & O 08/02/16 07:00 Intake Total 1100 ml Balance 1100 ml Capillary Refill : General Appearance: No Apparent Distress WD/WN Results Lab Laboratory Tests 08/02/16 05:10: Anion Gap 15H, BUN/Creatinine Ratio 7, Blood Urea Nitrogen 6L, Calcium Level 9.3 , Carbon Dioxide Level 25, Chloride Level 88L, Creatinine 0.81, Estimat Glomerular Filtration Rate > 60, Glucose Level 111H, INR Comment 1.5H, Potassium Level 3.5L, Prothrombin Time 18.0H, Sodium Level 128L Assessment/Plan Assessment/Plan Assess & Plan/Chief Complaint subdural hematoma. Hyponatremia. Mitral valve replacement. Coronary artery disease. Sore all over. . 07/26/16. Subdural hematoma. Hyponatremia sodium 127 today. To start fluid restriction yesterday. Patient feeling okay. Patient getting around with walker. . 07/29/16. Subdural hematoma. Hyponatremia is sodium 127 mitral valve replacement INR 3.7. Coronary artery disease. Patient feeling better. . 07/30/16 area Minimal subdural hematoma do to head trauma yesterday. Hyponatremia sodium 131 better. Mitral valve replacement. Coronary artery disease. . 05/31/17. Subdural hematoma. Patient stable. Patient feels he is getting better. Patient alert. Patient has new subdural. . Stable and acute subdural hematoma. Hyponatremia sodium 130 area INR 2.6 good. Patient getting around with a walker today. . 08/02/16. Patient feeling better. Sodium 128. Told patient to decrease fluid intake. Patient sent to be discharged to [place] Diagnosis/Problems: Clinical Quality Measures DVT/VTE Risk/Contraindication: Risk Factor Score Per Nursin RFS Level Per Nursing on Admit: 2=Moderate MARCELLA TAMEZ DO Aug 02, 2016 08:01
[2016-08-02 09:00] VITALS: BP 111/74
--- NOTE | 2016-08-02 09:17 | PM & R (SOAP) Progress Note ---
Subjective Subjective/Events-last exam Patient was seen in his room this AM Discussed case with DR Leonardo PCP Labs noted K low repeat lab ordered INR subtherapeutic-Coumadin resumed Discussed case with SW yesterday Patient is to be discharged on Friday08/04/16 to home with family in [place] Will need to have f/u care with Physician there unless Dr Leonardo will continue to manage medical care and Coumadin dosage on an outpatient basis Objective Exam Last Set of Vital Signs Vital Signs Date Time Temp Pulse Resp B/P Pulse Ox O2 Delivery O2 Flow Rate FiO2 08/02/16 05:47 98.4 70 16 126/77 97 Room Air Capillary Refill : I&O Bad tableGeneral: Alert, Cooperative, No Acute Distress HEENT: Atraumatic, PERRLA, EOMI, Mucous Memb Moist/[place] Neck: Supple, No JVD Lungs: Clear to Auscultation Heart: Regular Rate Abdomen: Normal Bowel Sounds, Soft, No Tenderness Extremities: No Edema Neuro: Other (impaired balance and some memory impairment) Results Lab Laboratory Tests 07/31/16 05:21: Anion Gap 14, BUN/Creatinine Ratio 9, Blood Urea Nitrogen 8, Calcium Level 9.9, Carbon Dioxide Level 26, Chloride Level 90L, Creatinine 0.88, Estimat Glomerular Filtration Rate > 60, Glucose Level 115H, Hematocrit 36L, Hemoglobin 11.8L, INR Comment 2.9H, Mean Corpuscular Hemoglobin 27, Mean Corpuscular Hemoglobin Concent 33, Mean Corpuscular Volume 80, Mean Platelet Volume 10.5H, Platelet Count 374, Potassium Level 3.4L, Prothrombin Time 30.1H, Red Blood Count 4.46, Red Cell Distribution Width 15.2H, Sodium Level 130L, White Blood Count 4.4 08/01/16 05:48: Anion Gap 13, BUN/Creatinine Ratio 8, Blood Urea Nitrogen 7, Calcium Level 9.5, Carbon Dioxide Level 27, Chloride Level 90L, Creatinine 0.86, Estimat Glomerular Filtration Rate > 60, Glucose Level 106H, Hematocrit 35L, Hemoglobin 11.4L, INR Comment 2.6H, Mean Corpuscular Hemoglobin 27, Mean Corpuscular Hemoglobin Concent 33, Mean Corpuscular Volume 80, Mean Platelet Volume 10.1, Platelet Count 312, Potassium Level 3.6, Prothrombin Time 27.3H, Red Blood Count 4.31L, Red Cell Distribution Width 15.0H, Sodium Level 130L, White Blood Count 5.1 08/02/16 05:10: Anion Gap 15H, BUN/Creatinine Ratio 7, Blood Urea Nitrogen 6L, Calcium Level 9.3 , Carbon Dioxide Level 25, Chloride Level 88L, Creatinine 0.81, Estimat Glomerular Filtration Rate > 60, Glucose Level 111H, INR Comment 1.5H, Potassium Level 3.5L, Prothrombin Time 18.0H, Sodium Level 128L Assessment/Plan Assessment Fall with SDH treted medically Chronic hyponatremia Anemia Cardiomyopathy s/p ICD Hx of rercurrent falls Chronic anticoagulation-cuurently with subtherapeutic INR Recurrent fall on unit the evening of 07-29-16 with small SDH left frontal lobe improving with repeat CT Head ordered -done improved Borderline hypokalemia=Repeat labs ordered Plan Continue PT/OT/ST Team Conference held 07-31-16 See report for full functional update and POC and ELOS Follow INR for chronic anticoagulation-subterapeutic at this time F/U with Dr leonardo PRN Trend Ygzwonjahszy-lpquxlv-wvqfikvidk stable Repeat CT Head done .for f/u-OK Discharge tentatively set for Friday the to home with relatives in [place] -Will f/u with KEVEN Glover MD Aug 02, 2016 09:17
[2016-08-02] MEDS ORDERED: HYDR-3812 PO (09:21)
[2016-08-02] MEDS: SOTALOL 80 MG (BETAPACE) TAB PO SCH ×2 (09:54→20:24)
[2016-08-02] MEDS: CARVEDILOL 12.5 MG (COREG) TABLET PO SCH ×2 (09:54→20:24)
--- NOTE | 2016-08-02 09:57 | Physical Therapy Daily Note ---
PT Daily Note-Current Subjective Patient still in shower with OT pre tx. PT will take over to get patient dressed and groomed (which her performs with mod I). Patient has pain of 6/10 in his back, nursing is aware and is getting him some pain meds. Appearance Patient EOB post tx with nurse call, phone, tray, bed alarm, all needs met. Mental Status Patient Orientation: Person, Place, Situation Transfers Functional [place] Measure 0=Not Assessed/NA 4=Minimal Assistance 1=Total Assistance 5=Supervision or Setup 2=Maximal Assistance 6=Modified [place] 3=Moderate Assistance 7=Complete IndependenceIRFPAI Quality Coding Scale 6 Independent with activity with or without an assistive device 5 Patient requires set up or clean up by helper. Patient completes activity by themselves 4 Supervision or touching assist (CGA). [place] provide cues , steadying assist 3 The helper provides less than half the effort to complete the activity 2 The helper provides more than half the effort to complete the activity 1 Dependent. The helper does all the effort to complete an activity 7 Patient refused to complete or attempt activity 9 The patient did not perform the activity before the current illness or injury 88 Not attempted due to Medical conditions or safety concerns Transfers (B, C, W/C) (FIM): 5 Scootin Rollin Roll Left to Right (QC): 6 Supine to/from Sit: 6 Sit to/from Stand: 5 Sit to Lying (QC): 6 Sit to Stand (QC): 4 Patient is mod I with all transfers, however he is not compliant with using his assistive device, which puts him at a risk for a fall and he needs SBA during therapy. Gait Training Does the Patient Walk?: Yes Gait (FIM): 5 Distance: 600'x2 Walk 10 feet (QC): 4 Walk 50 ft with 2 Turns(QC): 4 Walk 150 ft (QC): 4 Walking 10ft on uneven surface: 4 Gait Level of Assist: 5 Gait Persons Needed: 1 Gait Assistive Device: FWW Patient ambulates with mod I using a rolling walker including 10' over uneven surfaces like carpet, and 50' with at least 2 turns of 90 degrees. However, patient is not compliant with keeping his walker with him and will often take off without it, putting him at risk for a fall and so is actually SBA with ambulation due to safety reasons. Wheelchair Training Does the Pt Use a Wheelchair?: No Stair Training Stair Training: Handrails/: 2 handrails Stairs (FIM): 5 #of Steps: 12 1 Step (curb) (QC): 4 4 Steps (QC): 4 12 Steps (QC): 4 Stairs: Pattern: Step to Level of Assist: 5 SBA with stairs, occasional cues to perform step to pattern Balance Picking up an Object (QC): 4 (SBA) Exercises NuStep Minutes: 15 NuStep Workload: 5 Treatments functional strengthening, stair training, gait training, patient dressed and groomed after finishing his shower Assessment Current Status: Poor Progress no change in mobility, patient has safety issues due to being non-compliant with using his rolling walker, if he was compliant with it he would be mod I with all mobility PT Short Term Goals Short Term Goals Time Frame: Aug 01, 2016 Transfers (B,C,W/C) (FIM): 6 Gait (FIM): 6 Gait Distance Comment: 600' Gait Assistive Device: FWW PT Hooker Off Goals Hooker Off Goals PT Hooker Off Goals Time Frame: Aug 15, 2016 Transfers (B,C,W/C) (FIM): 6 Sit to Lying (QC): 6 (met) Lying-Sitting on Side/Bed(QC): 6 (met) Sit to Stand (QC): 6 Rollin (met) Roll Left to Right (QC): 6 (met) Chair/Qxh-ma-Vvrfm Xfer(QC): 6 Car Transfer (QC): 4 Does the Patient Walk: Yes Gait (FIM): 6 Distance: 800' Walk 10 feet (QC): 6 Walk 10ft-Uneven Surface(QC): 6 Walk 50ft with 2 Turns (QC): 6 Walk 150 ft (QC): 6 Gait Assistive Device: Cane Single Point # of Steps: 5 (met) 1 Step (curb) (QC): 4 (met) 4 Steps (QC): 4 (met) 12 Steps (QC): 4 (met) Stairs Level Of Assist: 5 PT Plan Problem List Problem List: Activity Tolerance, Functional Strength, Safety, Balance, Gait, Transfer Treatment/Plan Treatment Plan: Continue Plan of Care Treatment Plan: Bed Mobility, Education, Functional Activity Mckay, Functional Strength, Group Therapy, Gait, Safety, Therapeutic Exercise, Transfers Treatment Duration: Aug 15, 2016 Visits Per Week: 10-11 Minutes/Day (M-F): 60-90 Minutes/Day (Sat/Thakur): 15-30 Safety Risks/Education Patient Education: Gait Training, Transfer Techniques, Steps, Correct Positioning, Safety Issues Teaching Recipient: Patient Teaching Methods: Demonstration, Discussion Response to Teaching: Reinforcement Needed Time/GCodes Time In: 900 Time Out: 1000 Total Billed Treatment Time: 60 Total Billed Treatment 1 visit EX 15 min FA 15 min GT 30 min DAVE VAUGHN PT Aug 02, 2016 09:57
--- NOTE | 2016-08-02 14:21 | Occupational Ther Daily Note ---
OT Current Status-Daily Note Subjective Pt very adamant that he had already taken shower the previous day with OT. OT attempted to tell him that his last shower was 2 days prior, pt did not believe OT. Pt required increased time to get started today. Pt c/o back pain, nrsg notified. Mental Status/Objective Patient Orientation: Person, Place, Time, Situation Functional [place] Measure 0=Not Assessed/NA 4=Minimal Assistance 1=Total Assistance 5=Supervision or Setup 2=Maximal Assistance 6=Modified [place] 3=Moderate Assistance 7=Complete [place] ADL-Treatment Functional [place] Measure 0=Not Assessed/NA 4=Minimal Assistance 1=Total Assistance 5=Supervision or Setup 2=Maximal Assistance 6=Modified [place] 3=Moderate Assistance 7=Complete IndependenceIRFPAI Quality Coding Scale 6 Independent with activity with or without an assistive device 5 Patient requires set up or clean up by helper. Patient completes activity by themselves 4 Supervision or touching assist (CGA). [place] provide cues , steadying assist 3 The helper provides less than half the effort to complete the activity 2 The helper provides more than half the effort to complete the activity 1 Dependent. The helper does all the effort to complete an activity 7 Patient refused to complete or attempt activity 9 The patient did not perform the activity before the current illness or injury 88 Not attempted due to Medical conditions or safety concerns Eating (FIM): 6 (Pt has dentures. Pt able to set self up and feed self.) Eating (QC): 6 (Pt has dentures. Pt able to set self up and feed self.) Grooming (FIM): 6 (Standing at sink, pt is able to complete by self. Safety concerns.) Oral Hygiene (QC): 6 (Standing at sink, pt is able to complete by self. Safety concerns.) Toileting Hygiene (QC): 6 (Using grabbars and FWW, pt is able to complete by self.) Bathing (FIM): 6 (Using shower bench, hand held shower and grabbars pt is able to bathe self. Safety concerns, pt stands to wash feet instead of sitting.) Upper Body (FIM): 6 (Pt able to use FWW to retrieve clothing. Doffs and dons by self.) Upper Body Dressing (QC): 6 (Pt able to use FWW to retrieve clothing. Doffs and dons by self.) Lower Body Dressing (FIM): 6 (Pt able to use FWW to retrieve clothing. Doffs and dons by self.) Lower Body Dressing (QC): 6 (Pt able to use FWW to retrieve clothing. Doffs and dons by self.) On/Off Footwear (QC): 6 (Doffs and dons by self.) Toileting (FIM): 6 (Using grabbars and FWW, pt is able to complete by self.) Transfers (B, C, W/C) (FIM): 6 (Using FWW, pt transfers self. Pt will leave FWW behind and ambulate without it. Therapy recommends using FWW. ) Toilet/Commode Transfer (FIM): 6 (Using FWW, pt transfers self. Pt will leave FWW behind and ambulate without it. Therapy recommends using FWW. ) Toilet Transfer (QC): 6 (Using FWW, pt transfers self. Pt will leave FWW behind and ambulate without it. Therapy recommends using FWW. ) Shower Transfer(FIM): 6 (Using grabbars, shower bench and FWW, pt transfers self. Pt will leave FWW behind and ambulate without it. Therapy recommends using FWW. ) Shower/Bathe Self (QC): 6 (Using shower bench, hand held shower and grabbars pt is able to bathe self. Safety concerns, pt stands to wash feet instead of sitting.) Pt took increased time to complete ADLs, OT unable to finish dressing with pt. PT took over care of pt. Per PT report pt is mod I for dressing skills. OT Short Term Goals Short Term Goals Time Frame: Aug 01, 2016 Eating(FIM): 5 (met-08/02/16) Grooming(FIM): 5 (met-08/02/16) Bathing(FIM): 5 (met-08/02/16) Upper Body Dressing(FIM): 5 (met-08/02/16) Lower Body Dressing(FIM): 5 (met-08/02/16) Toileting(FIM): 5 (met-08/02/16) Transfers (B,C,W/C) (FIM): 6 (met-08/02/16) Toilet/Commode Transfer(FIM): 5 (met-08/02/16) Additional Short Term Goals: 1-Demonstrate ADL Tasks, 2-Verbalize Understanding , 3-ImproveStrength/Mckay 1=Demonstrate adherence to instructed precautions during ADL tasks. 2=Patient will verbalize/demonstrate understanding of assistive devices/ modifications for ADL. 3=Patient will improve strength/tolerance for activity to enable patient to perform ADL's. OT Resort Desk Clerk Goals Resort Desk Clerk Goals Time Frame: Aug 08, 2016 Eating (FIM): 6 (met-08/02/16) Eating (QC): 6 (met-08/02/16) Oral Hygiene (QC): 5 (met-08/02/16) Grooming(FIM): 6 (met-08/02/16) Bathing(FIM): 5 (met-08/02/16) Shower/Bathe Self (QC): 6 (met-08/02/16) Upper Body Dressing(FIM): 6 (met-08/02/16) Upper Body Dressing (QC): 6 (met-08/02/16) Lower Body Dressing(FIM): 6 (met-08/02/16) Lower Body Dressing (QC): 5 (met-08/02/16) On/Off Footwear (QC): 5 (met-08/02/16) Toileting(FIM): 6 (met-08/02/16) Toileting Hygiene (QC): 6 (met-08/02/16) Transfers (B,C,W/C) (FIM): 6 (met-08/02/16) Toilet/Commode Transfer(FIM): 6 (met-08/02/16) Toilet/Commode Transfer (QC): 6 (met-08/02/16) Shower Transfer(FIM): 5 (-08/02/16) Additional Goals: 1-Demonstrate ADL Tasks, 2-Verbalize Understanding, 3- ImproveStrength/Mckay 1=Demonstrate adherence to instructed precautions during ADL tasks. 2=Patient will verbalize/demonstrate understanding of assistive devices/ modifications for ADL. 3=Patient will improve strength/tolerance for activity to enable patient to perform ADL's. OT Education/Plan Discharge Recommendations Plan/Recommendations: Continue POC Treatment Plan/Plan of Care Patient would benefit from OT for education, treatment and training to promote independence in ADL's, mobility, safety and/or upper extremity function for ADL' s. Plan of Care: ADL Retraining, Caregiver Training, Cognitive Retraining, Functional Mobility, Group Exercise/Act as Ind, UE Funct Exercise/Act Treatment Duration: Aug 15, 2016 Visits Per Week: 10-11 Minutes/Day (M-F): 60-90 Minutes/Day (Sat/Thakur): 15-30 Agreement: Yes Rehab Potential: Fair Time/GCodes Start Time: 08:00 Stop Time: 09:00 Total Time Billed (hr/min): 60 Billed Treatment Time 1 visit-ADL 4 (60 min) YUNIOR WAGNER Aug 02, 2016 14:20
--- NOTE | 2016-08-02 14:54 | Therapy Group Daily Note ---
Therapy Daily Group Note Patient Education Topic Home Safety Exercises Fine Motor, UE Exercise Other/Notes Pt required encouragement to come to OT/PT lunch group. Pt actively participated in group. Group consisted of introductions (name, place living, worst thing to happen to your house), socialization, discussions about home safety during power outages and winter storms. Pt came up with ideas for what to do if this happened to him. Pt demonstrated ability to set self up for eating and feed self with regular utensils. After group, pt ambulated back to room and laid down in bed with call light/phone in reach. All needs met in room. Start Time: 12:00 Stop Time: 13:00 Total Billed Treatment Time: 60 Total Billed Treatment 1-GRP YUNIOR WAGNER Aug 02, 2016 14:54
[2016-08-02 18:27] VITALS: BP 124/78
[2016-08-02] MEDS: warFARin 3 MG (COUMADIN) TAB PO SCH (18:30)
[2016-08-02] MEDS: ATORVASTATIN 40 MG (LIPITOR) TABLET PO SCH (20:25)
[2016-08-03] MEDS: HYDROcodone/APAP 5 MG/325 MG (LORTAB) TAB PO PRN ×5 (01:41→23:48)
[2016-08-03] MEDS: KCL 20 MEQ TAB (K-DUR) PO SCH (05:21)
[2016-08-03] MEDS: FUROSEMIDE 40 MG (LASIX) TAB PO SCH ×2 (05:21→16:54)
[2016-08-03 05:51] LABS: INR 1.4 (0.8-1.4); PROTHROMBIN TIME PATIENT 17.2 SEC (12.2-14.7)
[2016-08-03 05:58] LABS: ANION GAP 11 MMOL/L (5-14); BLOOD UREA NITROGEN 7 MG/DL (7-18); BUN/CREATININE RATIO 8; CALCIUM 9.3 MG/DL (8.5-10.1); CARBON DIOXIDE 27 MMOL/L (21-32); CHLORIDE 92 MMOL/L (98-107); CREATININE SERUM 0.85 MG/DL (0.60-1.30); GFR ESTIMATED > 60; GLUCOSE 96 MG/DL (70-105); POTASSIUM 3.5 MMOL/L (3.6-5.0); SODIUM 130 MMOL/L (135-145)
[2016-08-03 06:00] VITALS: BP 112/86
[2016-08-03] MEDS: SOTALOL 80 MG (BETAPACE) TAB PO SCH ×2 (08:45→20:49)
[2016-08-03] MEDS: CARVEDILOL 12.5 MG (COREG) TABLET PO SCH ×2 (08:45→20:49)
[2016-08-03 09:00] VITALS: BP 108/71
[2016-08-03] MEDS ORDERED: MILK OF MAGNESIA 400 MG/5 ML 30 ML UDC PO PRN (10:15)
--- NOTE | 2016-08-03 10:59 | Physical Therapy Daily Note ---
PT Daily Note-Current Subjective Pt. was approached x 2 offering PT RX. Pt. refused x2 giving no excuse except that he did not want to. Transfers Functional [place] Measure 0=Not Assessed/NA 4=Minimal Assistance 1=Total Assistance 5=Supervision or Setup 2=Maximal Assistance 6=Modified [place] 3=Moderate Assistance 7=Complete IndependenceIRFPAI Quality Coding Scale 6 Independent with activity with or without an assistive device 5 Patient requires set up or clean up by helper. Patient completes activity by themselves 4 Supervision or touching assist (CGA). [place] provide cues , steadying assist 3 The helper provides less than half the effort to complete the activity 2 The helper provides more than half the effort to complete the activity 1 Dependent. The helper does all the effort to complete an activity 7 Patient refused to complete or attempt activity 9 The patient did not perform the activity before the current illness or injury 88 Not attempted due to Medical conditions or safety concerns Assessment Current Status: No Treatment/Other Tests PT Short Term Goals Short Term Goals Time Frame: Aug 01, 2016 Transfers (B,C,W/C) (FIM): 6 (met-08/02/16) Gait (FIM): 6 Gait Distance Comment: 600' Gait Assistive Device: FWW PT Fdc Goals Timber Management Assistant Goals PT Timber Management Assistant Goals Time Frame: Aug 15, 2016 Transfers (B,C,W/C) (FIM): 6 Sit to Lying (QC): 6 (met) Lying-Sitting on Side/Bed(QC): 6 (met) Sit to Stand (QC): 6 Rollin (met) Roll Left to Right (QC): 6 (met) Chair/Wec-ei-Otbsp Xfer(QC): 6 Car Transfer (QC): 4 Does the Patient Walk: Yes Gait (FIM): 6 Distance: 800' Walk 10 feet (QC): 6 Walk 10ft-Uneven Surface(QC): 6 Walk 50ft with 2 Turns (QC): 6 Walk 150 ft (QC): 6 Gait Assistive Device: Cane Single Point # of Steps: 5 (met) 1 Step (curb) (QC): 4 (met) 4 Steps (QC): 4 (met) 12 Steps (QC): 4 (met) Stairs Level Of Assist: 5 PT Plan Treatment/Plan Treatment Plan: Continue Plan of Care Treatment Plan: Bed Mobility, Education, Functional Activity Mckay, Functional Strength, Group Therapy, Gait, Safety, Therapeutic Exercise, Transfers Treatment Duration: Aug 15, 2016 Visits Per Week: 10-11 Minutes/Day (M-F): 60-90 Minutes/Day (Sat/Thakur): 15-30 Time/GCodes Time In: 905 Time Out: 906 Total Billed Treatment Time: 1 Total Billed Treatment 1,no chg, no RX G Codes Necessary: No MILTON BENNETT ALUMINUM MOLDING MACHINE OPERATOR Aug 03, 2016 10:59
[2016-08-03] MEDS ORDERED: KCL 10 MEQ TAB (MICRO K) PO NR (11:00)
[2016-08-03] MEDS ORDERED: warFARin 1 MG (COUMADIN) TAB PO NR (11:08)
[2016-08-03 18:00] VITALS: BP 119/70
[2016-08-03] MEDS ORDERED: warFARin 3 MG (COUMADIN) TAB PO SCH (18:00)
[2016-08-03] MEDS ORDERED: warFARin 3 MG (COUMADIN) TAB PO NR (18:00)
[2016-08-03] MEDS: ATORVASTATIN 40 MG (LIPITOR) TABLET PO SCH (20:49)
[2016-08-04 05:16] LABS: INR 1.7 (0.8-1.4); PROTHROMBIN TIME PATIENT 19.8 SEC (12.2-14.7)
[2016-08-04 06:00] VITALS: BP 125/74
[2016-08-04] MEDS: HYDROcodone/APAP 5 MG/325 MG (LORTAB) TAB PO PRN ×2 (06:34→11:45)
[2016-08-04] MEDS: KCL 20 MEQ TAB (K-DUR) PO SCH (06:34)
[2016-08-04] MEDS: FUROSEMIDE 40 MG (LASIX) TAB PO SCH (06:34)
[2016-08-04] MEDS ORDERED: warFARin 1 MG (COUMADIN) TAB PO NR (08:33)
[2016-08-04] MEDS: CARVEDILOL 12.5 MG (COREG) TABLET PO SCH (08:54)
[2016-08-04] MEDS: SOTALOL 80 MG (BETAPACE) TAB PO SCH (08:54)
[2016-08-04 09:00] VITALS: BP 127/76
[2016-08-04 15:58] VITALS: BP 127/76
--- NOTE | 2016-08-06 07:58 | Therapy Team Discharge Summary ---
Therapy Discharge Summary Discharge Recommendations Date of Discharge Aug 04, 2016 at 14:45 Therapy D/C Recommendations: Assisted Living Occupational Therapy Pt admitted to ARU following acute hospitalization for subdural hematoma. On admission pt required SBA for ADLs and transfers. Skilled OT intervention focused on ADL training, transfers, strengthening, and safety education. Pt progressed with therapy and by discharge is modified independent with ADLs and transfers, some safety concerns. Pt met all OT LTG. Pt discharged 08/04/16 with family support. D/c ARU OT at this time. PT Mcfp Goals Mcfp Goals PT Mcfp Goals Time Frame: Aug 15, 2016 Transfers (B,C,W/C) (FIM): 6 Roll Left to Right (QC): 6 (met) Sit to Lying (QC): 6 (met) Lying-Sitting on Side/Bed(QC): 6 (met) Sit to Stand (QC): 6 Chair/Ket-ru-Vyuyx Xfer(QC): 6 Car Transfer (QC): 4 Does the Patient Walk: Yes Gait (FIM): 6 Distance: 800' Walk 10 feet (QC): 6 Walk 10ft-Uneven Surface(QC): 6 Walk 50ft with 2 Turns (QC): 6 Walk 150 ft (QC): 6 Gait Assistive Device: Cane Single Point # of Steps: 5 (met) 1 Step (curb) (QC): 4 (met) 4 Steps (QC): 4 (met) 12 Steps (QC): 4 (met) Stairs Level Of Assist: 5 OT Mcfp Goals Fruit Raiser Goals Time Frame: Aug 08, 2016 Eating (FIM): 6 (met-08/02/16) Eating (QC): 6 (met-08/02/16) Oral Hygiene (QC): 5 (met-08/02/16) Grooming(FIM): 6 (met-08/02/16) Bathing(FIM): 5 (met-08/02/16) Shower/Bathe Self (QC): 6 (met-08/02/16) Upper Body Dressing(FIM): 6 (met-08/02/16) Upper Body Dressing (QC): 6 (met-08/02/16) Lower Body Dressing(FIM): 6 (met-08/02/16) Lower Body Dressing (QC): 5 (met-08/02/16) On/Off Footwear (QC): 5 (met-08/02/16) Toileting(FIM): 6 (met-08/02/16) Toileting Hygiene (QC): 6 (met-08/02/16) Transfers (B,C,W/C) (FIM): 6 (met-08/02/16) Toilet/Commode Transfer(FIM): 6 (met-08/02/16) Toilet/Commode Transfer (QC): 6 (met-08/02/16) Shower Transfer(FIM): 5 (met-08/02/16) Additional Goals: 1-Demonstrate ADL Tasks, 2-Verbalize Understanding, 3- ImproveStrength/Mckay 1=Demonstrate adherence to instructed precautions during ADL tasks. 2=Patient will verbalize/demonstrate understanding of assistive devices/ modifications for ADL. 3=Patient will improve strength/tolerance for activity to enable patient to perform ADL's. RAJAN BURGOS OT Aug 06, 2016 07:57
--- NOTE | 2016-08-13 12:06 | DISCHARGE SUMMARY ---
DATE OF ADMISSION: 07/24/2016 DATE OF DISCHARGE: 08/04/2016 HISTORY OF PRESENT ILLNESS: The patient is a 75-year-old male with history of ischemic cardiomyopathy with left ventricular ejection fraction of 25%. He was followed by Dr. Yeung for chronic systolic congestive heart failure and chronic anticoagulation status post cardiac valve replacement . He has a history of falls with most recent admission at [facility]. The patient was seen by neurosurgery. His Coumadin was held. Imaging studies revealed bilateral subdural hematomas. This was treated medically with observation. His Coumadin was resumed. He was referred to Inpatient Rehabilitation Unit for ongoing therapies at [facility] as he lives in [place], [place] and PCP is Dr. Leonardo. PAST MEDICAL HISTORY: 1. The patient had been living alone, but had a history of multiple falls. 2. He has had a compression fracture in the past with kypoplasty with Dr. Strickland, interventional radiology at [facility]. 3. He had myocardial perfusion imaging on 12/08/2012. 4. Echo in February 2014 showing a left ventricular ejection fraction approximately 45%, as well as pulmonary hypertension. 5. He has had device replacement with Dr. Zarate August 2013, outside facility. 6. He has seen Dr. Luna during prior admission at [facility]. 7. His kyphoplasty was done at L1 level on 06/05/2016. MEDICAL COURSE: The patient was followed by Dr. Jordan and Dr. Leonardo while on rehab unit. His INR was monitored and his Coumadin adjusted accordingly. He had a fall while on the unit with him relatively stable. Mixed density bilateral subdural hematomas represent acute/subacute on chronic changes; that CT was done on 07/31/16. No significant change . The size of the small bilateral subdural hematomas with was noted. Also noted was stable chronic lacunar infarct involving the right basal ganglia region anteriorly. CBC on 08/01 showed WBC 5.1, hemoglobin and hematocrit 11.4/35, stable. Chemistry on 08/03 showed serum sodium 130, stable. He has a history of chronic hyponatremia apparently. Serum potassium 3.5, he was provide with a replacement, chloride 92, BUN and creatinine 7/8.5. His INR on 08/04 was 1.7. He was afebrile during his stay. His pulse is 73 and 01/15, respirations 18, blood pressure 127/76, O2 sat 97% on room air. REHABILITATION COURSE: He was assessed by speech therapy upon admission and found to be functional and they signed off. OT notes that upon admission, the patient requires standby assist for ADLs and transfers. He progressed with therapies and by discharge he was modified independent with ADLs and transfers, although there were some safety concerns. PT notes that upon admission, he was min assist for transfers for bed mobility, and ambulation with a quad cane. Upon discharge he was modified independent for transfers, and ambulation more than 100 feet with a front wheel walker. Modified independent with bed mobility. DISCHARGE INSTRUCTIONS: The patient's son will take him home with him to [place], [place]. Continue current diet. The patient will have follow-up with Dr. Leonardo, PCP. Follow-up with INR 08/05, report to Dr. Leonardo. I believe the patient will have home health. DISCHARGE MEDICATIONS: 1. Hydrocodone APAP 5/225 1 tablet p.o. q.4 hours p.r.n. moderate pain. 2. Lipitor 20 mg p.o. at bedtime. 3. Coreg 12.5 mg p.o. b.i.d. 4. Furosemide 40 mg p.o. b.i.d. 5. KCL 20 mEq p.o. at bedtime. 6. Med 80 mg p.o. b.i.d. 7. Coumadin 3 mg p.o. at bedtime. DISCHARGE DIAGNOSES: 1. Rehabilitation ambulatory dysfunction secondary to bilateral frontal subdural hematoma, status post repeated falls on Coumadin on board, has been held, now resumed. 2. Fall while on rehab unit no injuries sustained, a repeat CT of the head ordered. 3. Chronic anticoagulation due to valve replacement with INR followed by Dr. Leonardo, PCP. 4. Status post mitral valve replacement with number [address] prosthesis January 2006. 5. Chronic hyponatremia, stable. 6. History of tobaccoism. 7. Hyperlipidemia on statins 8. 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 Zarate, cardiology, [facility]. 9. GERD. 10. DJD. 11. Paroxysmal atrial fibrillation. 12. History of abdominal aortic aneurysm, status post stent grafting Dr. Egan June 2011. 13. Chronic systolic congestive heart failure, stable. 14. Chronic back pain, status post compression fracture with hypoplasty Dr. Strickland takes Lortab 15. Mild normocytic anemia. 16. Mild hypokalemia. CONDITION AT DISCHARGE: Improved and stable. PROGNOSIS: Rehab prognosis appears good for some continued improvement however, due to his history of falls, subdural hematoma and multiple comorbidities, he continues to be a risk for recurrent falls. Job ID: [id number] Dictated Date: 08/13/2016 09:00:45 Cart Driver Date: 08/13/2016 11:42:23/luke COOK
== END 2016-08-04 14:45 | disposition home health service (06) | DRG 949 ==
PROVIDERS: ADMIT Physical Medicine & Rehabilitation; ATTEND Physical Medicine & Rehabilitation
DX: S06.5X9D Traumatic subdural hemorrhage with loss of consciousness of unspecified duration, subsequent encounter (principal); R26.2 Difficulty in walking, not elsewhere classified; E87.1 Hypo-osmolality and hyponatremia; I25.10 Atherosclerotic heart disease of native coronary artery without angina pectoris; I42.9 Cardiomyopathy, unspecified; I13.0 Hypertensive heart and chronic kidney disease with heart failure and stage 1 through stage 4 chronic kidney disease, or unspecified chronic kidney disease; I50.22 Chronic systolic (congestive) heart failure; N18.9 Chronic kidney disease, unspecified; I48.0 Paroxysmal atrial fibrillation; E11.9 Type 2 diabetes mellitus without complications; I27.2 Other secondary pulmonary hypertension; D64.9 Anemia, unspecified; S00.83XA Contusion of other part of head, initial encounter; E78.5 Hyperlipidemia, unspecified; K21.9 Gastro-esophageal reflux disease without esophagitis; Z79.01 Long term (current) use of anticoagulants; Z87.891 Personal history of nicotine dependence; Z95.2 Presence of prosthetic heart valve; Z95.810 Presence of automatic (implantable) cardiac defibrillator; W17.89XD Other fall from one level to another, subsequent encounter; W01.0XXA Fall on same level from slipping, tripping and stumbling without subsequent striking against object, initial encounter; Y92.230 Patient room in hospital as the place of occurrence of the external cause
CPT/HCPCS: 36415; 70450; 80048; 80053; 85025; 85027; 85610